=== PATIENT | male | born 1940 | race African-American/Black ===

== ENCOUNTER 2016-10-26 15:33 | Inpatient (IN) | payer OTHER, MEDICAID ==
[~2016-10-26] VITALS: Ht 185.4 cm; Wt 67.6 kg
[~2016-10-26 15:33] MED LIST: ASPIR 8181 MG ORAL; ATORVASTATIN CA20 MG ORAL; DONEPEZIL HCL10 M2 ORAL; NAMENDA10 MG ORAL; OXYBUTYNIN CHLOR5 M2 PO; TAMSULOSIN HCL0.4 MG ORAL; TYLENOL325 MG ORAL
[2016-10-26 15:59] LABS: BASOPHILS % (AUTO) 1.7 % (0.0-2.0); EOSINOPHILS % (AUTO) 2.1 % (0.0-3.0); LYMPHOCYTES % (AUTO) 21.7 % (20.0-45.0); MEAN CORPUSCULAR VOLUME 91 FL (80-99); MEAN PLATELET VOLUME 6.4 FL (6.5-10.1); MONOCYTES % (AUTO) 10.1 % (1.0-10.0); NEUTROPHILS % (AUTO) 64.4 % (45.0-75.0); PLATELET COUNT 171 K/UL (150-450); RED BLOOD COUNT 4.61 M/UL (4.70-6.10); RED CELL DISTRIBUTION WIDTH 13.6 % (11.6-14.8)
[2016-10-26 16:03] LABS: APPEARANCE,URINE CLEAR; KETONES,URINE 1+ (NEGATIVE); LEUKOCYTE ESTERASE ,URINE 1+ (NEGATIVE); NITRITE,URINE NEGATIVE (NEGATIVE); PH,URINE 6.5 (4.5-8.0); PROTEIN,URINE 2+ (NEGATIVE); UROBILINOGEN,URINE 1 MG/DL (0.0-1.0)
[2016-10-26 16:11] VITALS: BP 110/74
[2016-10-26 16:15] LABS: ALANINE AMINOTRANSFERASE 25 U/L (3-41); ALBUMIN/GLOBULIN RATIO 1.3 (1.0-2.7); ANION GAP 15 (5-15); ASPARTATE AMINO TRANSFERASE 23 U/L (5-40); CALCIUM 9.6 mg/dL (8.6-10.2); CARBON DIOXIDE 27 mEQ/L (20-30); CHLORIDE 99 mEQ/L (98-107); CREATININE 0.9 mg/dL (0.7-1.2); HEMOLYSIS 3; POTASSIUM 4.9 mEQ/L (3.4-4.9); SODIUM 141 mEQ/L (135-145); TOTAL PROTEIN 7.2 g/dL (6.6-8.7); TROPONIN I < 0.30 ng/mL (<=0.30)
[2016-10-26 16:18] LABS: AMORPHOUS SEDIMENT,UR FEW /LPF; BACTERIA,URINE MODERATE /HPF; YEAST,URINE FEW /HPF
[2016-10-26 16:20] LABS: REFLEX LACTIC ACID YES OR NO YES
[2016-10-26 16:26] LABS: CKMB < 1.5 ng/mL (< 6.7)
[2016-10-26] MEDS ORDERED: cefTRIAXone 1 GM in NS 55 ML IVPB ONE (17:00)
[2016-10-26] MEDS ORDERED: NS 1000ml 2,200 ML IVLG ONE (17:00)
[2016-10-26 17:15] VITALS: BP 119/78
[2016-10-26] MEDS ORDERED: Miralax 17gm pkt ORAL PRN (17:45)
[2016-10-26] MEDS ORDERED: Nitroglycerin Subl 0.4mg tab (Bottle Of 25) SL PRN (17:45)
[2016-10-26] MEDS ORDERED: Morphine Sulfate 2mg/ml Inj IVP PRN (17:45)
[2016-10-26] MEDS ORDERED: DuoNeb 0.5-3(2.5)mg/3ml neb HHN PRN (17:45)
[2016-10-26 18:07] VITALS: BP 118/86
[2016-10-26 19:00] VITALS: BP 138/75
--- NOTE | 2016-10-26 19:09 | Emergency Room Report ---
History of Present Illness General Chief Complaint: Generalized Weakness Source: EMS Present Illness HPI 76-year-old male presents to ED for evaluation. Son at bedside states that patient has been more altered in usual x1 day. Diaphoretic and tremulous. Patient has history of dementia. Denies fevers or chills. Denies chest pain or shortness of breath. Denies nausea or vomiting. No other aggravating or leading factors. Denies any other associated symptoms Allergies: Coded Allergies: No Known Allergies (Unverified , 08/11/15) Patient History Past Medical History: dementia Pertinent Family History: none Social History: Denies: alcohol use, drug use, smoking Immunizations: UTD Reviewed Nursing Documentation: PMH: Agreed, PSxH: Agreed Nursing Documentation-PMH Past Medical History: No History, Except For Hx Asthma: No - BPH Hx Cancer: Yes - Prostate History Of Psychiatric Problem: Yes - DEMENTIA Hx Alzheimer's Disease: Yes Review of Systems All Other Systems: negative except mentioned in HPI Physical Exam Vital Signs Date Time Temp Pulse Resp B/P Pulse Ox O2 Delivery O2 Flow Rate FiO2 10/26/16 15:21 65 16 103/66 99 Room Air 10/26/16 16:11 98.5 Sp02 EP Interpretation: reviewed, normal General Appearance: no apparent distress, alert, GCS 15, non-toxic, thin Head: normocephalic Eyes: bilateral eye PERRL, bilateral eye normal inspection ENT: normal ENT inspection Neck: normal inspection Respiratory: chest non-tender, lungs clear, normal breath sounds, speaking full sentences Cardiovascular #1: regular rate, rhythm, no edema Gastrointestinal: normal bowel sounds, non tender, soft, non-distended, no guarding, no rebound Rectal: deferred Genitourinary: no CVA tenderness Musculoskeletal: normal inspection Neurologic: other - dementia Psychiatric: other - dementia Skin: normal inspection Lymphatic: normal inspection Medical Decision Making Diagnostic Impression: Primary Impression: Episode of generalized weakness Additional Impressions: Dementia Qualified Codes: F03.90 - Unspecified dementia without behavioral disturbance Sepsis Qualified Codes: A41.9 - Sepsis, unspecified organism UTI (urinary tract infection) Qualified Codes: N39.0 - Urinary tract infection, site not specified ER Course Hospital Course 76-year-old male presenting to ED with generalized weakness, worsening of mental status. h/o dementia Differential diagnoses include: Pneumonia, UTI, sepsis, dehydration, PA/ unstable angina Clinical course Patient placed on stretcher. On program clinician with stable vitals are ED course. After initial history and physical, I ordered labs, IV fluids, EKG, chest x-ray, blood cultures, UA. Labs - electrolytes ok, no leukocytosis, troponins negative, lactate > 2, UA grossly positive for UTI EKG - NSR, no acute changes CXR - no acute process Abx given. given 30cc/kg fluid bolus. Case discussed with Dr Lowe and they agreed to admit patient to their service for further care and support I feel this is a highly complex case requiring extensive working including EKG/ Rhythm strip, Xray/CT/US, Blood/urine lab work, repeat exams while in ED, and administration of strong opiates/narcotics for pain control, admission to hospital or close patient follow up. Diagnosis - UTI, generalized weakness, sepsis, dementia Patient admitted to floor in serious condition Labs Test 10/26/16 15:25 10/26/16 15:50 10/26/16 16:45 White Blood Count 10.0 K/UL (4.8-10.8) Red Blood Count 4.61 M/UL (4.70-6.10) Hemoglobin 14.3 G/DL (14.2-18.0) Hematocrit 42.0 % (42.0-52.0) Mean Corpuscular Volume 91 FL (80-99) Mean Corpuscular Hemoglobin 31.0 PG (27.0-31.0) Mean Corpuscular Hemoglobin Concent 34.0 G/DL (32.0-36.0) Red Cell Distribution Width 13.6 % (11.6-14.8) Platelet Count 171 K/UL (150-450) Mean Platelet Volume 6.4 FL (6.5-10.1) Neutrophils (%) (Auto) 64.4 % (45.0-75.0) Lymphocytes (%) (Auto) 21.7 % (20.0-45.0) Monocytes (%) (Auto) 10.1 % (1.0-10.0) Eosinophils (%) (Auto) 2.1 % (0.0-3.0) Basophils (%) (Auto) 1.7 % (0.0-2.0) Sodium Level 141 mEQ/L (135-145) Potassium Level 4.9 mEQ/L (3.4-4.9) Chloride Level 99 mEQ/L (98-107) Carbon Dioxide Level 27 mEQ/L (20-30) Anion Gap 15 (5-15) Blood Urea Nitrogen 17 mg/dL (7-23) Creatinine 0.9 mg/dL (0.7-1.2) Estimat Glomerular Filtration Rate mL/min (>60) Glucose Level 103 mg/dL (74-106) Lactic Acid Level 2.70 mmol/L (0.66-2.22) 1.30 mmol/L (0.66-2.22) Calcium Level 9.6 mg/dL (8.6-10.2) Total Bilirubin 0.3 mg/dL (0.0-1.2) Aspartate Amino Transf (AST/SGOT) 23 U/L (5-40) Alanine Aminotransferase (ALT/SGPT) 25 U/L (3-41) Alkaline Phosphatase 84 U/L (40-129) Total Creatine Kinase 46 U/L (38-174) Creatine Kinase MB < 1.5 ng/mL (< 6.7) Creatine Kinase MB Relative Index Troponin I < 0.30 ng/mL (<=0.30) Total Protein 7.2 g/dL (6.6-8.7) Albumin 4.1 g/dL (3.5-5.2) Globulin 3.1 g/dL Albumin/Globulin Ratio 1.3 (1.0-2.7) Urine Color Yellow Urine Appearance Clear Urine pH 6.5 (4.5-8.0) Urine Specific [place] 1.015 (1.005-1.035) Urine Protein 2+ (NEGATIVE) Urine Glucose (UA) Negative (NEGATIVE) Urine Ketones 1+ (NEGATIVE) Urine Occult Blood 1+ (NEGATIVE) Urine Nitrite Negative (NEGATIVE) Urine Bilirubin Negative (NEGATIVE) Urine Urobilinogen 1 MG/DL (0.0-1.0) Urine Leukocyte Esterase 1+ (NEGATIVE) Urine RBC 2-4 /HPF (0 - 0) Urine WBC 5-10 /HPF (0 - 0) Urine Squamous Epithelial Cells None /LPF (NONE/OCC) Urine Amorphous Sediment Few /LPF (NONE) Urine Bacteria Moderate /HPF (NONE) Urine Yeast Few /HPF (NONE) EKG Diagnostic Results Rate: normal Rhythm: NSR ST Segments: no acute changes ASA given to the pt in ED: No Rhythm Strip Diag. Results EP Interpretation: yes Rhythm: NSR, no PVC's, no ectopy Chest X-Ray Diagnostic Results EP Interpretation: No Findings: no consolidation, no effusion, no pneumothorax, no acute cardiopulmonary disease Number of Views: 1 Last Vital Signs Date Time Temp Pulse Resp B/P Pulse Ox O2 Delivery O2 Flow Rate FiO2 10/26/16 18:20 98.3 70 15 118/86 100 Room Air Status: improved Disposition: ADMITTED INPATIENT Condition: Serious Referrals: NON PHYSICIAN (PCP) MIGUEL SAMSON M.D. Oct 26, 2016 19:09
[2016-10-26] MEDS ORDERED: Vancomycin 1.5 GM in D5W 325 ML IVPB ONE (20:00)
[2016-10-26] MEDS: Atorvastatin 20mg tab ORAL SCH (20:15)
[2016-10-26] MEDS: Heparin 5000 units/ml inj SUBQ SCH (20:15)
[2016-10-26] MEDS: Tamsulosin 0.4mg cap ORAL SCH (20:15)
[2016-10-26] MEDS ORDERED: Cefepime HCl 2 GM in D5W 110 ML IV SCH (21:30)
[2016-10-26] MEDS: Cefepime HCl 2 GM in NS 110 ML IV SCH (22:24)
--- NOTE | 2016-10-26 23:27 | Consultation ---
History of Present Illness General Chief Complaint: Generalized Weakness Present Illness Allergies: Coded Allergies: No Known Allergies (Unverified , 08/11/15) Medication History Scheduled Aspirin* (Aspir 81*), 81 MG ORAL DAILY, (Reported) Atorvastatin Calcium* (Atorvastatin Calcium*), 20 MG ORAL BEDTIME, (Reported) Donepezil Hcl* (Donepezil Hcl*), 10 MG ORAL DAILY, (Reported) Memantine Hcl* (Namenda*), 10 MG ORAL DAILY, (Reported) Scheduled PRN Acetaminophen (Tylenol), 650 MG ORAL Q6H PRN for For Pain Discontinued Medications Oxybutynin Chloride (Oxybutynin Chloride Er), 5 MG PO, (Reported) Discontinued Reason: Pt stopped taking med Tamsulosin Hcl (Tamsulosin Hcl*), 0.4 MG ORAL BEDTIME, (Reported) Discontinued Reason: Pt stopped taking med Patient History Healthcare decision maker Resuscitation status Full Code Advanced Directive on File Physical Exam Last 24 Hour Vital Signs Date Time Temp Pulse Resp B/P Pulse Ox O2 Delivery O2 Flow Rate FiO2 10/26/16 19:00 98.1 82 20 138/75 96 Room Air 10/26/16 18:20 98.3 70 15 118/86 100 Room Air 10/26/16 18:07 98.3 70 15 118/86 100 Room Air 10/26/16 17:15 98.1 62 15 119/78 98 Room Air 10/26/16 16:11 98.5 64 18 110/74 100 Room Air 10/26/16 15:21 65 16 103/66 99 Room Air Laboratory Tests Test 10/26/16 15:25 10/26/16 15:50 10/26/16 16:45 White Blood Count 10.0 K/UL (4.8-10.8) Red Blood Count 4.61 M/UL (4.70-6.10) L Hemoglobin 14.3 G/DL (14.2-18.0) Hematocrit 42.0 % (42.0-52.0) Mean Corpuscular Volume 91 FL (80-99) Mean Corpuscular Hemoglobin 31.0 PG (27.0-31.0) Mean Corpuscular Hemoglobin Concent 34.0 G/DL (32.0-36.0) Red Cell Distribution Width 13.6 % (11.6-14.8) Platelet Count 171 K/UL (150-450) Mean Platelet Volume 6.4 FL (6.5-10.1) L Neutrophils (%) (Auto) 64.4 % (45.0-75.0) Lymphocytes (%) (Auto) 21.7 % (20.0-45.0) Monocytes (%) (Auto) 10.1 % (1.0-10.0) H Eosinophils (%) (Auto) 2.1 % (0.0-3.0) Basophils (%) (Auto) 1.7 % (0.0-2.0) Sodium Level 141 mEQ/L (135-145) Potassium Level 4.9 mEQ/L (3.4-4.9) Chloride Level 99 mEQ/L (98-107) Carbon Dioxide Level 27 mEQ/L (20-30) Anion Gap 15 (5-15) Blood Urea Nitrogen 17 mg/dL (7-23) Creatinine 0.9 mg/dL (0.7-1.2) Estimat Glomerular Filtration Rate mL/min (>60) Glucose Level 103 mg/dL (74-106) Lactic Acid Level 2.70 mmol/L (0.66-2.22) H 1.30 mmol/L (0.66-2.22) Calcium Level 9.6 mg/dL (8.6-10.2) Total Bilirubin 0.3 mg/dL (0.0-1.2) Aspartate Amino Transf (AST/SGOT) 23 U/L (5-40) Alanine Aminotransferase (ALT/SGPT) 25 U/L (3-41) Alkaline Phosphatase 84 U/L (40-129) Total Creatine Kinase 46 U/L (38-174) Creatine Kinase MB < 1.5 ng/mL (< 6.7) Creatine Kinase MB Relative Index Troponin I < 0.30 ng/mL (<=0.30) Total Protein 7.2 g/dL (6.6-8.7) Albumin 4.1 g/dL (3.5-5.2) Globulin 3.1 g/dL Albumin/Globulin Ratio 1.3 (1.0-2.7) Urine Color Yellow Urine Appearance Clear Urine pH 6.5 (4.5-8.0) Urine Specific [place] 1.015 (1.005-1.035) Urine Protein 2+ (NEGATIVE) H Urine Glucose (UA) Negative (NEGATIVE) Urine Ketones 1+ (NEGATIVE) H Urine Occult Blood 1+ (NEGATIVE) H Urine Nitrite Negative (NEGATIVE) Urine Bilirubin Negative (NEGATIVE) Urine Urobilinogen 1 MG/DL (0.0-1.0) H Urine Leukocyte Esterase 1+ (NEGATIVE) H Urine RBC 2-4 /HPF (0 - 0) H Urine WBC 5-10 /HPF (0 - 0) H Urine Squamous Epithelial Cells None /LPF (NONE/OCC) Urine Amorphous Sediment Few /LPF (NONE) H Urine Bacteria Moderate /HPF (NONE) H Urine Yeast Few /HPF (NONE) H Height (Feet): 6 Height (Inches): 1.00 Weight (Pounds): 149 Medications Current Medications Medications (Trade) Dose Ordered Sig/Hao Route PRN Reason Start Time Stop Time Status Last Admin Dose Admin Acetaminophen (Tylenol) 650 mg Q4H PRN ORAL fever 10/26/16 17:45 11/25/16 17:44 Albuterol/ Ipratropium (DuoNeb 0.5-3(2.5)mg/3ml) 3 ml Q4H PRN HHN Shortness of Breath 10/26/16 17:45 10/31/16 17:44 Atorvastatin Calcium (Lipitor) 20 mg BEDTIME ORAL 10/26/16 21:00 11/25/16 20:59 10/26/16 20:15 Cefepime HCl/ Sodium Chloride (Maxipime/Sodium Chloride) 110 ml @ 220 mls/hr EVERY 12 HOURS IV 10/26/16 21:30 11/02/16 21:29 10/26/16 22:24 Donepezil HCl (Aricept) 10 mg DAILY ORAL 10/27/16 09:00 11/26/16 08:59 Heparin Sodium (Porcine) (Heparin 5000 units/ml) 5,000 units EVERY 12 HOURS SUBQ 10/26/16 21:00 11/25/16 20:59 10/26/16 20:15 Morphine Sulfate (Morphine Sulfate) 2 mg Q4H PRN IVP Moderate Pain (Pain Scale 4-6) 10/26/16 17:45 11/02/16 17:44 Nitroglycerin (Ntg) 0.4 mg Q5M PRN SL Prn Chest Pain 10/26/16 17:45 11/25/16 17:44 Ondansetron HCl (Zofran) 4 mg Q6H PRN IVP Nausea & Vomiting 10/26/16 17:45 11/25/16 17:44 Polyethylene Glycol (Miralax) 17 gm DAILYPRN PRN ORAL Constipation 10/26/16 17:45 11/25/16 17:44 Tamsulosin HCl (Flomax) 0.4 mg BEDTIME ORAL 10/26/16 21:00 11/25/16 20:59 10/26/16 20:15 Temazepam (Restoril) 15 mg HSPRN PRN ORAL Insomnia 10/26/16 17:45 11/02/16 17:44 Vancomycin HCl 1.25 gm/Dextrose 275 ml @ 183.333 mls/hr Q24H IVPB 10/27/16 19:00 11/01/16 18:59 Vancomycin HCl 1 ea 1 ea DAILY PRN MISC . 10/26/16 18:45 11/25/16 18:44 AYSHA ROSENBERG Oct 26, 2016 23:27
[2016-10-27] VITALS: BP 142/87
[2016-10-27] MEDS ORDERED: Vancomycin 1 GM in D5W 275 ML IV SCH (00:30)
[2016-10-27 04:00] VITALS: BP 131/75
[2016-10-27 07:30] LABS: BASOPHILS % (AUTO) 1.3 % (0.0-2.0); EOSINOPHILS % (AUTO) 2.2 % (0.0-3.0); LYMPHOCYTES % (AUTO) 17.6 % (20.0-45.0); MEAN CORPUSCULAR HEMOGLOBIN 29.2 PG (27.0-31.0); MEAN CORPUSCULAR HGB CONC 32.2 G/DL (32.0-36.0); MEAN CORPUSCULAR VOLUME 91 FL (80-99); MEAN PLATELET VOLUME 6.6 FL (6.5-10.1); MONOCYTES % (AUTO) 8.8 % (1.0-10.0); NEUTROPHILS % (AUTO) 70.1 % (45.0-75.0); PLATELET COUNT 177 K/UL (150-450); RED CELL DISTRIBUTION WIDTH 13.3 % (11.6-14.8); WHITE BLOOD COUNT 9.4 K/UL (4.8-10.8)
[2016-10-27 07:44] LABS: ALANINE AMINOTRANSFERASE 20 U/L (3-41); ALBUMIN/GLOBULIN RATIO 1.2 (1.0-2.7); ANION GAP 17 (5-15); ASPARTATE AMINO TRANSFERASE 20 U/L (5-40); CALCIUM 8.8 mg/dL (8.6-10.2); CARBON DIOXIDE 22 mEQ/L (20-30); CHLORIDE 103 mEQ/L (98-107); CREATININE 0.7 mg/dL (0.7-1.2); HEMOLYSIS 3; POTASSIUM 3.6 mEQ/L (3.4-4.9); SODIUM 142 mEQ/L (135-145); TOTAL PROTEIN 6.4 g/dL (6.6-8.7)
[2016-10-27] MEDS: Cefepime HCl 2 GM in NS 110 ML IV SCH ×2 (08:09→22:33)
[2016-10-27] MEDS: Donepezil 10mg tab ORAL SCH (08:09)
[2016-10-27] MEDS: Heparin 5000 units/ml inj SUBQ SCH ×2 (08:10→20:44)
--- NOTE | 2016-10-27 08:15 | Diagnostic Imaging Report ---
Indication: Chest pain Technique: One view of the chest Comparison: 01/09/2016 Findings: Lungs and pleural spaces are clear. Heart size is normal. Aorta is tortuous and calcified. No significant change Impression: No acute process
[2016-10-27 08:49] VITALS: BP 155/114
[2016-10-27 11:56] VITALS: BP 121/68
[2016-10-27 16:00] VITALS: BP 156/75
--- NOTE | 2016-10-27 16:20 | History & Physical ---
History and Physical History & Physicial Addy Lowe MD Oct 27, 2016 16:20
[2016-10-27] MEDS ORDERED: D5 1/2NS w/KCl 20mEq 1,000 ML IV SCH (16:30)
[2016-10-27] MEDS ORDERED: D5 IV ONE (18:00)
[2016-10-27] MEDS ORDERED: POTASSIUM CHLORIDE IV ONE (18:00)
[2016-10-27] MEDS ORDERED: [UNRECOGNIZED DRUG - OTHER] IV ONE (18:00)
[2016-10-27 19:00] VITALS: BP 158/80
[2016-10-27] MEDS ORDERED: Vancomycin 1250mg/D5W 275ml IVPB SCH ×2 (19:00)
--- NOTE | 2016-10-27 20:35 | Pulmonology Progress Note ---
Subjective Allergies: Coded Allergies: No Known Allergies (Unverified , 08/11/15) Objective Last 24 Hour Vital Signs Date Time Temp Pulse Resp B/P Pulse Ox O2 Delivery O2 Flow Rate FiO2 10/27/16 16:00 96.8 98 18 156/75 94 Room Air 10/27/16 11:56 98.1 100 22 121/68 97 Room Air 10/27/16 08:49 98.1 104 22 155/114 99 Room Air 10/27/16 04:00 97.7 77 20 131/75 97 Room Air 10/27/16 00:00 97.9 73 20 142/87 94 Room Air Intake and Output 10/26/16 10/27/16 19:00 07:00 Intake Total 3255 ml 240 ml Output Total 500 ml Balance 2755 ml 240 ml Intake Oral 240 ml IV Total 1055 ml Other 2200 ml Output Urine Total 500 ml # Voids 6 # Bowel Movements 1 1 Microbiology Date/Time Source Procedure Growth Status 10/26/16 15:50 Urine,Clean Catch Urine Culture - Preliminary NO GROWTH Resulted Laboratory Tests 10/27/16 06:55: White Blood Count 9.4, Red Blood Count 4.30L, Hemoglobin 12.6L, Hematocrit 39.1L , Mean Corpuscular Volume 91, Mean Corpuscular Hemoglobin 29.2, Mean Corpuscular Hemoglobin Concent 32.2, Red Cell Distribution Width 13.3, Platelet Count 177, Mean Platelet Volume 6.6, Neutrophils (%) (Auto) 70.1, Lymphocytes (% ) (Auto) 17.6L, Monocytes (%) (Auto) 8.8, Eosinophils (%) (Auto) 2.2, Basophils (%) (Auto) 1.3, Sodium Level 142, Potassium Level 3.6, Chloride Level 103, Carbon Dioxide Level 22, Anion Gap 17H, Blood Urea Nitrogen 10, Creatinine 0.7, Estimat Glomerular Filtration Rate , Glucose Level 96, Calcium Level 8.8, Total Bilirubin 0.4, Aspartate Amino Transf (AST/SGOT) 20, Alanine Aminotransferase ( ALT/SGPT) 20, Alkaline Phosphatase 77, Total Protein 6.4L, Albumin 3.6, Globulin 2.8, Albumin/Globulin Ratio 1.2 Current Medications Medications (Trade) Dose Ordered Sig/Hao Route PRN Reason Start Time Stop Time Status Last Admin Dose Admin Acetaminophen (Tylenol) 650 mg Q4H PRN ORAL fever 10/26/16 17:45 11/25/16 17:44 Albuterol/ Ipratropium (DuoNeb 0.5-3(2.5)mg/3ml) 3 ml Q4H PRN HHN Shortness of Breath 10/26/16 17:45 10/31/16 17:44 Atorvastatin Calcium (Lipitor) 20 mg BEDTIME ORAL 10/26/16 21:00 11/25/16 20:59 10/26/16 20:15 Cefepime HCl 2 gm/ Sodium Chloride 110 ml @ 220 mls/hr EVERY 12 HOURS IV 10/26/16 21:30 11/02/16 21:29 10/27/16 08:09 Donepezil HCl (Aricept) 10 mg DAILY ORAL 10/27/16 09:00 11/26/16 08:59 10/27/16 08:09 Heparin Sodium (Porcine) (Heparin 5000 units/ml) 5,000 units EVERY 12 HOURS SUBQ 10/26/16 21:00 11/25/16 20:59 10/27/16 08:10 Morphine Sulfate (Morphine Sulfate) 2 mg Q4H PRN IVP Moderate Pain (Pain Scale 4-6) 10/26/16 17:45 11/02/16 17:44 Nitroglycerin (Ntg) 0.4 mg Q5M PRN SL Prn Chest Pain 10/26/16 17:45 11/25/16 17:44 Ondansetron HCl (Zofran) 4 mg Q6H PRN IVP Nausea & Vomiting 10/26/16 17:45 11/25/16 17:44 Polyethylene Glycol (Miralax) 17 gm DAILYPRN PRN ORAL Constipation 10/26/16 17:45 11/25/16 17:44 Potassium Chloride/Dextrose/ Sodium Chloride (KCl/D5 0.45% NS) 760 ml @ 75 mls/hr Q10H8M ONCE IV 10/27/16 18:00 10/28/16 04:07 10/27/16 18:09 Tamsulosin HCl (Flomax) 0.4 mg BEDTIME ORAL 10/26/16 21:00 11/25/16 20:59 10/26/16 20:15 Temazepam (Restoril) 15 mg HSPRN PRN ORAL Insomnia 10/26/16 17:45 11/02/16 17:44 Vancomycin HCl 1.25 gm/Dextrose 275 ml @ 183.333 mls/hr Q24H IVPB 10/27/16 19:00 11/01/16 18:59 10/27/16 18:10 Vancomycin HCl 1 ea 1 ea DAILY PRN MISC . 10/26/16 18:45 11/25/16 18:44 AYSHA ROSENBERG Oct 27, 2016 20:35
[2016-10-27] MEDS: Tamsulosin 0.4mg cap ORAL SCH (20:38)
[2016-10-27] MEDS: Atorvastatin 20mg tab ORAL SCH (20:39)
--- NOTE | 2016-10-27 23:18 | History and Physical Report ---
DATE OF ADMISSION: 10/26/2016 CHIEF COMPLAINT: Altered mental status, more than usual. HISTORY OF PRESENT ILLNESS: This is a 76-year-old very delightful demented gentleman with a past medical history significant for severe dementia, who was presented to the hospital accompanied with his son after he was noted to be more altered than usual. The patient usually demented. However, his status became progressively worse in past 24 hours. He has become diaphoretic and he denies any fever or chills. No chest pain or shortness of breath. No nausea or vomiting. Most of the history is taken from the son. Due to the patient's status, the patient answered questions with single words and he only knows his name, Sina. Shortly after initial evaluation in the emergency, the patient was admitted to the hospital with dehydration and sepsis secondary to urinary tract infection. PAST MEDICAL HISTORY AND PAST SURGICAL HISTORY: As above. History of dementia. MEDICATIONS: Medications at home significant for Tylenol, aspirin, atorvastatin, Aricept, and Namenda. ALLERGIES: No known drug allergies. SOCIAL HISTORY: No smoking, alcohol, or drugs at this time. FAMILY HISTORY: Noncontributory. REVIEW OF SYSTEMS: Very limited secondary to the patient's status. No fever or chills. No nausea or vomiting. No chest pain. PHYSICAL EXAMINATION: VITAL SIGNS: On admission, temperature of 98.5, pulse of 65, respirations 16, and blood pressure 103/66. GENERAL: The patient is awake, responsive, not in acute distress. HEAD AND NECK: Pupils are reactive to light and anicteric. NECK: Supple. No JVD. LUNGS: inspiratory effort. HEART: S1 and S2. Distant heart sounds. No murmurs or gallops. ABDOMEN: Soft, nondistended and nontender. Positive bowel sounds. EXTREMITIES: No cyanosis, clubbing, or edema. The patient is moving all extremities spontaneously and is mostly bedbound at this time. NEUROLOGIC: Examination is very limited secondary to the patient's status. Cranial nerves II through XII are grossly intact. The patient is moving his extremities slowly. LABORATORY DATA: On admission from the ER, sodium 141, potassium 4.9, chloride 99, bicarbonate 27, BUN 17, creatinine 0.9, and glucose 103. First lactic acid is 2.70 second one is 1.30. Liver functions essentially unremarkable. First troponin less than 0.30. Total protein 7.2. Urinalysis is +2 protein, +1 ketones, nitrate negative, leukocytes +1, WBC of 5 to 10, few yeast, and moderate bacteria. WBC of 10.0, hemoglobin of 14, hematocrit 42, and platelet 171,000. Chest x-ray is unremarkable. ASSESSMENT: 1. Sepsis secondary urinary tract infection. 2. Dehydration. 3. Dementia. 4. Toxic metabolic encephalopathy most likely secondary to the sepsis. PLAN: Admit the patient to medical/surgical. We will followup laboratories. IV hydration, broad-spectrum antibiotics with vancomycin and cefepime. We will follow up with the culture. DVT prophylaxis. Heparin subcutaneous. Resume home medications. We will monitor laboratory in the morning. CODE STATUS: Full Code at this time. Addy Lowe M.D. DR: CINTHYA JOB#: [id number] CC:
[2016-10-28] VITALS (7 sets, daily range): BP systolic 108–160; BP diastolic 59–97
[2016-10-28 07:38] LABS: MEAN CORPUSCULAR HEMOGLOBIN 28.7 PG (27.0-31.0); MEAN CORPUSCULAR HGB CONC 31.4 G/DL (32.0-36.0); MEAN CORPUSCULAR VOLUME 91 FL (80-99); PLATELET COUNT 189 K/UL (150-450); RED BLOOD COUNT 4.55 M/UL (4.70-6.10); RED CELL DISTRIBUTION WIDTH 13.3 % (11.6-14.8); WHITE BLOOD COUNT 8.9 K/UL (4.8-10.8)
[2016-10-28 08:11] LABS: ANION GAP 16 (5-15); CALCIUM 9.1 mg/dL (8.6-10.2); CARBON DIOXIDE 22 mEQ/L (20-30); CHLORIDE 102 mEQ/L (98-107); CREATININE 0.8 mg/dL (0.7-1.2); HEMOLYSIS 1; MAGNESIUM 2.1 mg/dL (1.7-2.5); PHOSPHORUS 3.3 mg/dL (2.5-4.8); POTASSIUM 3.8 mEQ/L (3.4-4.9); SODIUM 140 mEQ/L (135-145)
[2016-10-28] MEDS: Donepezil 10mg tab ORAL SCH (08:55)
[2016-10-28] MEDS: Cefepime HCl 2 GM in NS 110 ML IV SCH ×2 (08:55→21:14)
[2016-10-28] MEDS: Heparin 5000 units/ml inj SUBQ SCH ×2 (08:58→21:36)
[2016-10-28 09:38] LABS: BAND NEUTROPHILS % (MANUAL) 0 % (0-8); BASOPHILS % (MANUAL) 0 % (0-2); EOSINOPHILS % (MANUAL) 1 % (0-3); HYPOCHROMASIA 1+; LYMPHOCYTES % (MANUAL) 27 % (20-45); NEUTROPHILS % (MANUAL) 65 % (45-75); PLATELET ESTIMATE ADEQUATE; PLATELET MORPHOLOGY NORMAL; TOTAL CELLS COUNTED 100
--- NOTE | 2016-10-28 10:47 | Consultation ---
Consult Note Consult Note ID Dic # [id number] CAMILO POND M.D. Oct 28, 2016 10:47
--- NOTE | 2016-10-28 17:28 | Consultation ---
DATE OF CONSULTATION: INFECTIOUS DISEASE CONSULT CONSULTING PHYSICIAN: Colby Richardson M.D. REQUESTING PHYSICIAN: Josias Godinez M.D. REASON FOR CONSULTATION: Evaluation of the patient for sepsis, antibiotic management, and urinary tract infection. HISTORY OF PRESENT ILLNESS: The patient is a 76-year-old male with multiple medical problems, who was admitted to this medical center from home due to worsening of mental status. The patient has history of dementia and asthma. The patient was admitted with the impression of urinary tract infection. The patient has been started on IV antibiotics. An Infectious Diseases consultation has been requested for further evaluation of the patient and antibiotic management. PAST MEDICAL HISTORY: As mentioned above. MEDICATION: Cefepime and vancomycin. ALLERGIES: No known drug allergies. SOCIAL HISTORY: Negative for alcohol or drug abuse. REVIEW OF SYSTEMS: Unobtainable. PHYSICAL EXAMINATION: VITAL SIGNS: Temperature 98 degrees, pulse 86, respiratory rate 18, and blood pressure 115/70. HEENT: Mild pale conjunctivae. No icterus. CHEST: Coarse breathing sounds. HEART: S1 and S2. ABDOMEN: Soft and nontender. EXTREMITIES: No cyanosis. NEUROLOGIC: Confused. LABORATORY AND DIAGNOSTIC DATA: White blood cells 8.8, hemoglobin 13, and platelet 189,000. UA, 5 to 10 red blood cells and 2 to 4 red blood cells. BUN 9 and creatinine 0.8. ALT, AST, and alkaline phosphatase are unremarkable. Chest x-ray, no acute process. ASSESSMENT: The patient is a 76-year-old male with multiple medical problems, who has been admitted to this medical center for worsening mental status, possible urinary tract infection, rule out bacteremia. Based on exam and work up so far, he has no possible source of infection. If the patient's culture stays stable and afebrile, we may stop antibiotics soon. PLAN: 1. We will continue the patient on cefepime, discontinue vancomycin. 2. Monitor CBC. 3. Monitor BMP. 4. Monitor cultures (blood and urine). 5. Monitor clinical picture. 6. Monitor chest x-ray. 7. Based on the patient's clinical course and labs, we will do further recommendation. Thank you, Dr. Godinez, for allowing me to participate in the care of this patient. I will follow the patient with you during this hospitalization. Thank you that year and it. Colby Richardson M.D. DR: COLIN JOB#: [id number] CC:
--- NOTE | 2016-10-28 17:32 | Pulmonology Progress Note ---
Assessment/Plan Assessment/Plan ASSESSMENT: 1. Sepsis secondary urinary tract infection. 2. Dehydration. 3. Dementia. 4. Toxic metabolic encephalopathy most likely secondary to the sepsis. PLAN: IV hydration, broad-spectrum antibiotics with vancomycin and cefepime. DVT prophylaxis. Heparin subcutaneous. Resume home medications. I will monitor laboratory in the morning. Subjective Interval Events: [facility]; pt states he is better Constitutional: Reports: no symptoms HEENT: Repors: no symptoms Respiratory: Reports: no symptoms Cardiovascular: Reports: no symptoms Gastrointestinal/Abdominal: Reports: no symptoms Genitourinary: Reports: no symptoms Allergies: Coded Allergies: No Known Allergies (Unverified , 08/11/15) Objective Last 24 Hour Vital Signs Date Time Temp Pulse Resp B/P Pulse Ox O2 Delivery O2 Flow Rate FiO2 10/28/16 16:03 97.5 72 16 139/91 99 Room Air 10/28/16 12:03 98.6 71 20 108/59 100 Room Air 10/28/16 08:01 98.7 85 20 115/70 97 Room Air 10/28/16 04:00 98.1 84 20 155/97 96 Room Air 10/28/16 00:00 98.8 94 20 160/81 96 10/27/16 19:00 98.0 68 18 158/80 97 Room Air Intake and Output 10/27/16 10/28/16 19:00 07:00 Intake Total 830 ml 745.000 ml Balance 830 ml 745.000 ml Intake Oral 720 ml 360 ml IV Total 110 ml 385.000 ml # Voids 1 5 # Bowel Movements 1 General Appearance: no acute distress HEENT: normocephalic Respiratory/Chest: chest wall non-tender, lungs clear Cardiovascular: normal peripheral pulses, normal rate Abdomen: soft, non tender Microbiology Date/Time Source Procedure Growth Status 10/26/16 15:30 Blood Blood Culture - Preliminary NO GROWTH AFTER 24 HOURS Resulted 10/26/16 15:25 Blood Blood Culture - Preliminary NO GROWTH AFTER 24 HOURS Resulted 10/26/16 15:50 Urine,Clean Catch Urine Culture - Final NO GROWTH AFTER 48 HOURS Complete Laboratory Tests 10/28/16 05:10: White Blood Count 8.9, Red Blood Count 4.55L, Hemoglobin 13.1L, Hematocrit 41.6L , Mean Corpuscular Volume 91, Mean Corpuscular Hemoglobin 28.7, Mean Corpuscular Hemoglobin Concent 31.4L, Red Cell Distribution Width 13.3, Platelet Count 189, Mean Platelet Volume 6.0L, Neutrophils (%) (Auto) , Lymphocytes (%) (Auto) , Monocytes (%) (Auto) , Eosinophils (%) (Auto) , Basophils (%) (Auto) , Differential Total Cells Counted 100, Neutrophils % ( Manual) 65, Lymphocytes % (Manual) 27, Monocytes % (Manual) 7, Eosinophils % ( Manual) 1, Basophils % (Manual) 0, Band Neutrophils 0, Platelet Estimate Adequate, Platelet Morphology Normal, Hypochromasia 1+, Sodium Level 140, Potassium Level 3.8, Chloride Level 102, Carbon Dioxide Level 22, Anion Gap 16H , Blood Urea Nitrogen 9, Creatinine 0.8, Estimat Glomerular Filtration Rate , Glucose Level 114H, Calcium Level 9.1, Phosphorus Level 3.3, Magnesium Level 2.1 Current Medications Medications (Trade) Dose Ordered Sig/Hao Route PRN Reason Start Time Stop Time Status Last Admin Dose Admin Acetaminophen (Tylenol) 650 mg Q4H PRN ORAL fever 10/26/16 17:45 11/25/16 17:44 Albuterol/ Ipratropium (DuoNeb 0.5-3(2.5)mg/3ml) 3 ml Q4H PRN HHN Shortness of Breath 10/26/16 17:45 10/31/16 17:44 Atorvastatin Calcium (Lipitor) 20 mg BEDTIME ORAL 10/26/16 21:00 11/25/16 20:59 10/27/16 20:39 Cefepime HCl/ Sodium Chloride (Maxipime/Sodium Chloride) 110 ml @ 220 mls/hr EVERY 12 HOURS IV 10/26/16 21:30 11/02/16 21:29 10/28/16 08:55 Donepezil HCl (Aricept) 10 mg DAILY ORAL 10/27/16 09:00 11/26/16 08:59 10/28/16 08:55 Heparin Sodium (Porcine) (Heparin 5000 units/ml) 5,000 units EVERY 12 HOURS SUBQ 10/26/16 21:00 11/25/16 20:59 10/28/16 08:58 Morphine Sulfate (Morphine Sulfate) 2 mg Q4H PRN IVP Moderate Pain (Pain Scale 4-6) 4/6/17 17:45 11/02/16 17:44 Nitroglycerin 0.4 mg 0.4 mg Q5M PRN SL Prn Chest Pain 10/26/16 17:45 11/25/16 17:44 Ondansetron HCl (Zofran) 4 mg Q6H PRN IVP Nausea & Vomiting 10/26/16 17:45 11/25/16 17:44 Polyethylene Glycol (Miralax) 17 gm DAILYPRN PRN ORAL Constipation 10/26/16 17:45 11/25/16 17:44 Tamsulosin HCl (Flomax) 0.4 mg BEDTIME ORAL 10/26/16 21:00 11/25/16 20:59 10/27/16 20:38 Temazepam (Restoril) 15 mg HSPRN PRN ORAL Insomnia 10/26/16 17:45 11/02/16 17:44 Nick Sanders MD Oct 28, 2016 17:32
[2016-10-28] MEDS: Atorvastatin 20mg tab ORAL SCH (21:15)
[2016-10-28] MEDS: Tamsulosin 0.4mg cap ORAL SCH (21:15)
[2016-10-29 03:38] VITALS: BP_SYST 147
[2016-10-29 07:39] LABS: ANION GAP 15 (5-15); CALCIUM 9.2 mg/dL (8.6-10.2); CARBON DIOXIDE 24 mEQ/L (20-30); CHLORIDE 102 mEQ/L (98-107); CREATININE 0.7 mg/dL (0.7-1.2); HEMOLYSIS 0; POTASSIUM 3.6 mEQ/L (3.4-4.9); SODIUM 141 mEQ/L (135-145)
[2016-10-29 07:40] LABS: EOSINOPHILS % (AUTO) 3.1 % (0.0-3.0); LYMPHOCYTES % (AUTO) 26.2 % (20.0-45.0); MEAN CORPUSCULAR HEMOGLOBIN 29.8 PG (27.0-31.0); MEAN CORPUSCULAR HGB CONC 32.5 G/DL (32.0-36.0); MEAN CORPUSCULAR VOLUME 92 FL (80-99); MEAN PLATELET VOLUME 6.8 FL (6.5-10.1); MONOCYTES % (AUTO) 10.2 % (1.0-10.0); NEUTROPHILS % (AUTO) 59.5 % (45.0-75.0); PLATELET COUNT 195 K/UL (150-450); RED BLOOD COUNT 4.38 M/UL (4.70-6.10); RED CELL DISTRIBUTION WIDTH 13.4 % (11.6-14.8); WHITE BLOOD COUNT 9.4 K/UL (4.8-10.8)
[2016-10-29 08:00] VITALS: BP 163/90
[2016-10-29] MEDS ORDERED: Tubing IV Secondary IV ONE (08:40)
[2016-10-29] MEDS: Heparin 5000 units/ml inj SUBQ SCH (09:40)
[2016-10-29] MEDS: Donepezil 10mg tab ORAL SCH (09:40)
[2016-10-29] MEDS: Cefepime HCl 2 GM in NS 110 ML IV SCH (09:40)
[2016-10-29] MEDS ORDERED: LEVAQUIN500 MG ORAL (09:53)
--- NOTE | 2016-10-29 09:57 | Infectious Diseases Prog Note ---
Assessment/Plan Assessment/Plan A; Sepsis was ruled out AMS Dementia P: discontinue Cefepime Agree with discharge case was D/W PMD Subjective ROS Limited/Unobtainable: Yes Constitutional: Reports: no symptoms Respiratory: Reports: no symptoms Allergies: Coded Allergies: No Known Allergies (Unverified , 08/11/15) Objective Vital Signs Last 24 Hour Vital Signs Date Time Temp Pulse Resp B/P Pulse Ox O2 Delivery O2 Flow Rate FiO2 10/29/16 08:00 97.3 20 163/90 96 Room Air 10/29/16 03:38 98.1 79 18 147/ 100 Room Air 10/28/16 23:11 97.9 95 16 150/80 100 Room Air 10/28/16 19:37 97.7 74 19 143/78 100 Room Air 10/28/16 16:03 97.5 72 16 139/91 99 Room Air 10/28/16 12:03 98.6 71 20 108/59 100 Room Air Height (Feet): 6 Height (Inches): 1.00 Weight (Pounds): 149 General Appearance: no acute distress HEENT: mucous membranes moist Respiratory/Chest: lungs clear Cardiovascular: normal rate Abdomen: soft, non tender Extremities: no edema Neurologic/Psychiatric: alert, responsive Microbiology Date/Time Source Procedure Growth Status 10/26/16 15:30 Blood Blood Culture - Preliminary NO GROWTH AFTER 48 HOURS Resulted 10/26/16 15:25 Blood Blood Culture - Preliminary NO GROWTH AFTER 48 HOURS Resulted 10/26/16 15:50 Urine,Clean Catch Urine Culture - Final NO GROWTH AFTER 48 HOURS Complete Laboratory Tests Test 10/29/16 04:50 White Blood Count 9.4 K/UL (4.8-10.8) Red Blood Count 4.38 M/UL (4.70-6.10) L Hemoglobin 13.1 G/DL (14.2-18.0) L Hematocrit 40.2 % (42.0-52.0) L Mean Corpuscular Volume 92 FL (80-99) Mean Corpuscular Hemoglobin 29.8 PG (27.0-31.0) Mean Corpuscular Hemoglobin Concent 32.5 G/DL (32.0-36.0) Red Cell Distribution Width 13.4 % (11.6-14.8) Platelet Count 195 K/UL (150-450) Mean Platelet Volume 6.8 FL (6.5-10.1) Neutrophils (%) (Auto) 59.5 % (45.0-75.0) Lymphocytes (%) (Auto) 26.2 % (20.0-45.0) Monocytes (%) (Auto) 10.2 % (1.0-10.0) H Eosinophils (%) (Auto) 3.1 % (0.0-3.0) H Basophils (%) (Auto) 1.0 % (0.0-2.0) Sodium Level 141 mEQ/L (135-145) Potassium Level 3.6 mEQ/L (3.4-4.9) Chloride Level 102 mEQ/L (98-107) Carbon Dioxide Level 24 mEQ/L (20-30) Anion Gap 15 (5-15) Blood Urea Nitrogen 9 mg/dL (7-23) Creatinine 0.7 mg/dL (0.7-1.2) Estimat Glomerular Filtration Rate mL/min (>60) Glucose Level 89 mg/dL (74-106) Calcium Level 9.2 mg/dL (8.6-10.2) Current Medications Medications (Trade) Dose Ordered Sig/Hao Route PRN Reason Start Time Stop Time Status Last Admin Dose Admin Acetaminophen (Tylenol) 650 mg Q4H PRN ORAL fever 10/26/16 17:45 11/25/16 17:44 Albuterol/ Ipratropium (DuoNeb 0.5-3(2.5)mg/3ml) 3 ml Q4H PRN HHN Shortness of Breath 10/26/16 17:45 10/31/16 17:44 Atorvastatin Calcium (Lipitor) 20 mg BEDTIME ORAL 10/26/16 21:00 11/25/16 20:59 10/28/16 21:15 Cefepime HCl/ Sodium Chloride (Maxipime/Sodium Chloride) 110 ml @ 220 mls/hr EVERY 12 HOURS IV 10/26/16 21:30 11/02/16 21:29 10/29/16 09:40 Donepezil HCl (Aricept) 10 mg DAILY ORAL 10/27/16 09:00 11/26/16 08:59 10/29/16 09:40 Heparin Sodium (Porcine) (Heparin 5000 units/ml) 5,000 units EVERY 12 HOURS SUBQ 10/26/16 21:00 11/25/16 20:59 10/29/16 09:40 Morphine Sulfate (Morphine Sulfate) 2 mg Q4H PRN IVP Moderate Pain (Pain Scale 4-6) 10/26/16 17:45 11/02/16 17:44 Nitroglycerin 0.4 mg 0.4 mg Q5M PRN SL Prn Chest Pain 10/26/16 17:45 11/25/16 17:44 Ondansetron HCl (Zofran) 4 mg Q6H PRN IVP Nausea & Vomiting 10/26/16 17:45 11/25/16 17:44 Polyethylene Glycol (Miralax) 17 gm DAILYPRN PRN ORAL Constipation 10/26/16 17:45 11/25/16 17:44 Tamsulosin HCl (Flomax) 0.4 mg BEDTIME ORAL 10/26/16 21:00 11/25/16 20:59 10/28/16 21:15 Temazepam (Restoril) 15 mg HSPRN PRN ORAL Insomnia 10/26/16 17:45 11/02/16 17:44 10/28/16 21:15 SHUBHAM CROWELL Oct 29, 2016 09:57
--- NOTE | 2016-10-29 09:57 | Pulmonology Progress Note ---
Assessment/Plan Assessment/Plan ASSESSMENT: 1. Sepsis resolved. 2. Dehydration. Resolved 3. Dementia. Baseline 4. All cultures negative PLAN: DC home PO Levaquin Discussed with ID FAmily notified Subjective Interval Events: no fever; discused with family and ID Constitutional: Reports: no symptoms HEENT: Repors: no symptoms Respiratory: Reports: no symptoms Cardiovascular: Reports: no symptoms Allergies: Coded Allergies: No Known Allergies (Unverified , 08/11/15) Objective Last 24 Hour Vital Signs Date Time Temp Pulse Resp B/P Pulse Ox O2 Delivery O2 Flow Rate FiO2 10/29/16 08:00 97.3 20 163/90 96 Room Air 10/29/16 03:38 98.1 79 18 147/ 100 Room Air 10/28/16 23:11 97.9 95 16 150/80 100 Room Air 10/28/16 19:37 97.7 74 19 143/78 100 Room Air 10/28/16 16:03 97.5 72 16 139/91 99 Room Air 10/28/16 12:03 98.6 71 20 108/59 100 Room Air Intake and Output 10/28/16 10/29/16 19:00 07:00 Intake Total 1290 ml Balance 1290 ml Intake Oral 420 ml IV Total 870 ml # Voids 4 General Appearance: no acute distress HEENT: normocephalic Respiratory/Chest: chest wall non-tender, lungs clear Cardiovascular: normal peripheral pulses, normal rate Abdomen: normal bowel sounds, soft, non tender Microbiology Date/Time Source Procedure Growth Status 10/26/16 15:30 Blood Blood Culture - Preliminary NO GROWTH AFTER 48 HOURS Resulted 10/26/16 15:25 Blood Blood Culture - Preliminary NO GROWTH AFTER 48 HOURS Resulted 10/26/16 15:50 Urine,Clean Catch Urine Culture - Final NO GROWTH AFTER 48 HOURS Complete Laboratory Tests 10/29/16 04:50: White Blood Count 9.4, Red Blood Count 4.38L, Hemoglobin 13.1L, Hematocrit 40.2L , Mean Corpuscular Volume 92, Mean Corpuscular Hemoglobin 29.8, Mean Corpuscular Hemoglobin Concent 32.5, Red Cell Distribution Width 13.4, Platelet Count 195, Mean Platelet Volume 6.8, Neutrophils (%) (Auto) 59.5, Lymphocytes (% ) (Auto) 26.2, Monocytes (%) (Auto) 10.2H, Eosinophils (%) (Auto) 3.1H, Basophils (%) (Auto) 1.0, Sodium Level 141, Potassium Level 3.6, Chloride Level 102, Carbon Dioxide Level 24, Anion Gap 15, Blood Urea Nitrogen 9, Creatinine 0.7, Estimat Glomerular Filtration Rate , Glucose Level 89, Calcium Level 9.2 Current Medications Medications (Trade) Dose Ordered Sig/Hao Route PRN Reason Start Time Stop Time Status Last Admin Dose Admin Acetaminophen (Tylenol) 650 mg Q4H PRN ORAL fever 10/26/16 17:45 11/25/16 17:44 Albuterol/ Ipratropium (DuoNeb 0.5-3(2.5)mg/3ml) 3 ml Q4H PRN HHN Shortness of Breath 10/26/16 17:45 10/31/16 17:44 Atorvastatin Calcium (Lipitor) 20 mg BEDTIME ORAL 10/26/16 21:00 11/25/16 20:59 10/28/16 21:15 Cefepime HCl/ Sodium Chloride (Maxipime/Sodium Chloride) 110 ml @ 220 mls/hr EVERY 12 HOURS IV 10/26/16 21:30 11/02/16 21:29 10/29/16 09:40 Donepezil HCl (Aricept) 10 mg DAILY ORAL 10/27/16 09:00 11/26/16 08:59 10/29/16 09:40 Heparin Sodium (Porcine) (Heparin 5000 units/ml) 5,000 units EVERY 12 HOURS SUBQ 10/26/16 21:00 11/25/16 20:59 10/29/16 09:40 Morphine Sulfate (Morphine Sulfate) 2 mg Q4H PRN IVP Moderate Pain (Pain Scale 4-6) 10/26/16 17:45 11/02/16 17:44 Nitroglycerin 0.4 mg 0.4 mg Q5M PRN SL Prn Chest Pain 10/26/16 17:45 11/25/16 17:44 Ondansetron HCl (Zofran) 4 mg Q6H PRN IVP Nausea & Vomiting 10/26/16 17:45 11/25/16 17:44 Polyethylene Glycol (Miralax) 17 gm DAILYPRN PRN ORAL Constipation 10/26/16 17:45 11/25/16 17:44 Tamsulosin HCl (Flomax) 0.4 mg BEDTIME ORAL 10/26/16 21:00 11/25/16 20:59 10/28/16 21:15 Temazepam (Restoril) 15 mg HSPRN PRN ORAL Insomnia 10/26/16 17:45 11/02/16 17:44 10/28/16 21:15 Nick Sanders MD Oct 29, 2016 09:57
[2016-10-29 12:00] VITALS: BP 146/84
--- NOTE | 2016-10-30 10:42 | Discharge Summary ---
Discharge Summary Hospital Course Date of Admission Oct 26, 2016 at 16:12 Date of Discharge Oct 29, 2016 at 14:00 Admitting Diagnosis AMS, weakness HPI Sina Ernandez is a 76 year old male who was admitted on Oct 26, 2016 at 16:12 for Altered Mental Status,Weakness. Son at bedside states that patient has been more altered in usual x1 day. Diaphoretic and tremulous. Patient has history of dementia. Denies fevers or chills. Denies chest pain or shortness of breath. Denies nausea or vomiting. No other aggravating or leading factors. Denies any other associated symptoms Patient History Past Medical History: dementia Pertinent Family History: none Social History: Denies: alcohol use, drug use, smoking Immunizations: UTD Reviewed Nursing Documentation: PMH: Agreed, PSxH: Agreed Nursing Documentation-PMH Past Medical History: No History, Except For Hx Asthma: No - BPH Hx Cancer: Yes - Prostate History Of Psychiatric Problem: Yes - DEMENTIA Hx Alzheimer's Disease: Yes Consultations Infectious Diseases Pulmonary Procedures EKG Diagnostic Results Rate: normal Rhythm: NSR ST Segments: no acute changes ASA given to the pt in ED: No Rhythm Strip Diag. Results EP Interpretation: yes Rhythm: NSR, no PVC's, no ectopy Chest X-Ray Diagnostic Results EP Interpretation: No Findings: no consolidation, no effusion, no pneumothorax, no acute cardiopulmonary disease Number of Views: 1 Hospital Course Medical Decision Making Diagnostic Impression: Primary Impression: Episode of generalized weakness Additional Impressions: Dementia Qualified Codes: F03.90 - Unspecified dementia without behavioral disturbance Sepsis Qualified Codes: A41.9 - Sepsis, unspecified organism UTI (urinary tract infection) Qualified Codes: N39.0 - Urinary tract infection, site not specified ER Course Hospital Course 76-year-old male presenting to ED with generalized weakness, worsening of mental status. h/o dementia Differential diagnoses include: Pneumonia, UTI, sepsis, dehydration, FL/ unstable angina Clinical course Patient placed on stretcher. On threat monitoring analyst with stable vitals are ED course. After initial history and physical, I ordered labs, IV fluids, EKG, chest x-ray, blood cultures, UA. Abx given. given 30cc/kg fluid bolus. Case discussed with Dr Lowe and they agreed to admit patient to their service for further care and support Diagnosis - UTI, generalized weakness, sepsis, dementia Labs Test 10/26/16 15:25 10/26/16 15:50 10/26/16 16:45 White Blood Count 10.0 K/UL (4.8-10.8) Red Blood Count 4.61 M/UL (4.70-6.10) Hemoglobin 14.3 G/DL (14.2-18.0) Hematocrit 42.0 % (42.0-52.0) Mean Corpuscular Volume 91 FL (80-99) Mean Corpuscular Hemoglobin 31.0 PG (27.0-31.0) Mean Corpuscular Hemoglobin Concent 34.0 G/DL (32.0-36.0) Red Cell Distribution Width 13.6 % (11.6-14.8) Platelet Count 171 K/UL (150-450) Mean Platelet Volume 6.4 FL (6.5-10.1) Neutrophils (%) (Auto) 64.4 % (45.0-75.0) Lymphocytes (%) (Auto) 21.7 % (20.0-45.0) Monocytes (%) (Auto) 10.1 % (1.0-10.0) Eosinophils (%) (Auto) 2.1 % (0.0-3.0) Basophils (%) (Auto) 1.7 % (0.0-2.0) Sodium Level 141 mEQ/L (135-145) Potassium Level 4.9 mEQ/L (3.4-4.9) Chloride Level 99 mEQ/L (98-107) Carbon Dioxide Level 27 mEQ/L (20-30) Anion Gap 15 (5-15) Blood Urea Nitrogen 17 mg/dL (7-23) Creatinine 0.9 mg/dL (0.7-1.2) Estimat Glomerular Filtration Rate mL/min (>60) Glucose Level 103 mg/dL (74-106) Lactic Acid Level 2.70 mmol/L (0.66-2.22) 1.30 mmol/L (0.66-2.22) Calcium Level 9.6 mg/dL (8.6-10.2) Total Bilirubin 0.3 mg/dL (0.0-1.2) Aspartate Amino Transf (AST/SGOT) 23 U/L (5-40) Alanine Aminotransferase (ALT/SGPT) 25 U/L (3-41) Alkaline Phosphatase 84 U/L (40-129) Total Creatine Kinase 46 U/L (38-174) Creatine Kinase MB < 1.5 ng/mL (< 6.7) Creatine Kinase MB Relative Index Troponin I < 0.30 ng/mL (<=0.30) Total Protein 7.2 g/dL (6.6-8.7) Albumin 4.1 g/dL (3.5-5.2) Globulin 3.1 g/dL Albumin/Globulin Ratio 1.3 (1.0-2.7) Urine Color Yellow Urine Appearance Clear Urine pH 6.5 (4.5-8.0) Urine Specific [place] 1.015 (1.005-1.035) Urine Protein 2+ (NEGATIVE) Urine Glucose (UA) Negative (NEGATIVE) Urine Ketones 1+ (NEGATIVE) Urine Occult Blood 1+ (NEGATIVE) Urine Nitrite Negative (NEGATIVE) Urine Bilirubin Negative (NEGATIVE) Urine Urobilinogen 1 MG/DL (0.0-1.0) Urine Leukocyte Esterase 1+ (NEGATIVE) Urine RBC 2-4 /HPF (0 - 0) Urine WBC 5-10 /HPF (0 - 0) Urine Squamous Epithelial Cells None /LPF (NONE/OCC) Urine Amorphous Sediment Few /LPF (NONE) Urine Bacteria Moderate /HPF (NONE) Urine Yeast Few /HPF (NONE) Hospital Course LABORATORY DATA: On admission from the ER, sodium 141, potassium 4.9, chloride 99, bicarbonate 27, BUN 17, creatinine 0.9, and glucose 103. First lactic acid is 2.70 second one is 1.30. Liver functions essentially unremarkable. First troponin less than 0.30. Total protein 7.2. Urinalysis is +2 protein, +1 ketones, nitrate negative, leukocytes +1, WBC of 5 to 10, few yeast, and moderate bacteria. WBC of 10.0, hemoglobin of 14, hematocrit 42, and platelet 171,000. Chest x-ray is unremarkable. ASSESSMENT: 1. Sepsis secondary urinary tract infection. 2. Dehydration. 3. Dementia. 4. Toxic metabolic encephalopathy most likely secondary to the sepsis. PLAN: Admit the patient to medical/surgical. We will followup laboratories. IV hydration, broad-spectrum antibiotics with vancomycin and cefepime. We will follow up with the culture. DVT prophylaxis Heparin subcutaneous. Resume home medications. We will monitor laboratory in the morning. Infectious Diseases ASSESSMENT: The patient is a 76-year-old male with multiple medical problems, who has been admitted to this medical center for worsening mental status, possible urinary tract infection, rule out bacteremia. Based on exam and work up so far, he has no possible source of infection. If the patient's culture stays stable and afebrile, we may stop antibiotics soon. PLAN: 1. We will continue the patient on cefepime, discontinue vancomycin. 2. Monitor CBC. 3. Monitor BMP. 4. Monitor cultures (blood and urine). 5. Monitor clinical picture. 6. Monitor chest x-ray. 7. Based on the patient's clinical course and labs, we will do further recommendation. Pulmonary ASSESSMENT: 1. Sepsis secondary urinary tract infection. 2. Dehydration. 3. Dementia. 4. Toxic metabolic encephalopathy most likely secondary to the sepsis. PLAN: IV hydration, broad-spectrum antibiotics with vancomycin and cefepime. DVT prophylaxis. Heparin subcutaneous. Resume home medications. I will monitor laboratory in the morning. FINAL COURSE ASSESSMENT: 1. Sepsis resolved. 2. Dehydration. Resolved 3. Dementia. Baseline 4. All cultures negative PLAN: DC home PO Levaquin Discussed with ID Family notified. Discharge Medications New Medications: Levofloxacin* (Levaquin*) 500 Mg Tablet 500 MG ORAL DAILY for 5 Days, TAB Continued Medications: Aspirin* (Aspir 81*) 81 Mg Tablet.dr 81 MG ORAL DAILY, TAB Atorvastatin Calcium* (Atorvastatin Calcium*) 20 Mg Tablet 20 MG ORAL BEDTIME, TAB Donepezil Hcl* (Donepezil Hcl*) 10 Mg Tab.rapdis 10 MG ORAL DAILY, TAB Memantine Hcl* (Namenda*) 10 Mg Tablet 10 MG ORAL DAILY, TAB Discharge Condition Upon Discharge: stable Discharge Disposition Patient was discharged to Home (01) Discharge Diagnoses: (1) Dementia (2) Sepsis (3) Episode of generalized weakness (4) Syncope Discharge Instructions Discharge Instructions Special Instructions Patient discharged with son at 1400. Patient belongings verified, list placed in chart. IV site and ID band removed. Respirations even and unlabored, patient denied pain. Prescription and discharge packet given to son Sina Tena I have been assigned to the discharge summary of this patient and did not provide any care for the patient. Alisson Alisson Barakat NP, N.P. Oct 30, 2016 10:42
--- NOTE | 2016-10-30 17:05 | Cardiology Report ---
APPROVED REPORT EKG Measurement Heart [id number] Normal sinus rhythm Normal ECG
== END 2016-10-29 14:00 | disposition home health service (06) | DRG 871 ==
LOC: ENRESERVDT → ENRESERVTM → EDBD 15:33 → EMR 16:06 → 4E 16:12 → EDBEDREQ 18:03 → 4E 10-27 18:59
DX: A41.9 Sepsis, unspecified organism (principal); G92 Toxic encephalopathy; N39.0 Urinary tract infection, site not specified; G30.9 Alzheimer's disease, unspecified; F02.80 Dementia in other diseases classified elsewhere, unspecified severity, without behavioral disturbance, psychotic disturbance, mood disturbance, and anxiety; E86.0 Dehydration; R53.1 Weakness
CPT/HCPCS: 36415; 71010; 80048; 80053; 81003; 82550; 82553; 83605; 83735; 84100; 84484; 85007; 85025; 87040; 87086; 93005

== ENCOUNTER 2017-01-03 19:44 | Inpatient (IN) | payer MEDICAID, OTHER ==
[~2017-01-03] VITALS: Ht 182.9 cm; Wt 68.0 kg
[~2017-01-03 19:44] MED LIST changes: +LEVAQUIN500 MG ORAL
[2017-01-03 20:18] VITALS: BP 131/70
[2017-01-03 20:42] LABS: TROPONIN I < 0.30 ng/mL (<=0.30)
[2017-01-03 20:46] LABS: ALANINE AMINOTRANSFERASE 33 U/L (3-41); ALBUMIN/GLOBULIN RATIO 1.2 (1.0-2.7); ANION GAP 14 (5-15); ASPARTATE AMINO TRANSFERASE 29 U/L (5-40); CALCIUM 9.4 mg/dL (8.6-10.2); CARBON DIOXIDE 25 mEQ/L (20-30); CHLORIDE 99 mEQ/L (98-107); CREATININE 1.1 mg/dL (0.7-1.2); HEMOLYSIS 16; POTASSIUM 4.3 mEQ/L (3.4-4.9); SODIUM 138 mEQ/L (135-145); TOTAL PROTEIN 7.3 g/dL (6.6-8.7)
[2017-01-03 20:53] LABS: BASOPHILS % (AUTO) 1.3 % (0.0-2.0); LYMPHOCYTES % (AUTO) 15.5 % (20.0-45.0); MEAN CORPUSCULAR HEMOGLOBIN 27.7 PG (27.0-31.0); MEAN CORPUSCULAR VOLUME 92 FL (80-99); MEAN PLATELET VOLUME 6.4 FL (6.5-10.1); MONOCYTES % (AUTO) 4.3 % (1.0-10.0); NEUTROPHILS % (AUTO) 77.9 % (45.0-75.0); PLATELET COUNT 130 K/UL (150-450); RED BLOOD COUNT 4.43 M/UL (4.70-6.10); RED CELL DISTRIBUTION WIDTH 12.9 % (11.6-14.8); WHITE BLOOD COUNT 9.7 K/UL (4.8-10.8)
--- NOTE | 2017-01-03 20:55 | Emergency Room Report ---
History of Present Illness General Chief Complaint: Syncope Source: Patient, Family Member, EMS Present Illness HPI This patient is accompanied by his son. The patient has severe dementia. 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 The son states that the patient was in the bathroom. He hadn't had a bowel movement today. He states that normally he has regular bowel movements. He states that he heard a crash in the bathroom and when he went into the bathroom he found his dad on the floor between the bathtub and a platelet. He was unresponsive but his eyes were open. He states that his skin was sweaty and clammy. He states he was concerned that he wasn't breathing. He states he pulled him on the floor and did several chest compressions. He states he also specialist water. He states that then he came to and seemed to be his normal self. EMS report that on their arrival he did have a systolic blood pressure of about 90. The patient himself has no complaints. The patient denies chest pain or shortness of breath. The patient denies abdominal pain. Patient denies neck pain or headache. There are no other complaints. Allergies: Coded Allergies: No Known Allergies (Unverified , 08/11/15) Patient History Past Medical History: dementia, other - Hx of prostate CA Social History: Denies: alcohol use, drug use, smoking Reviewed Nursing Documentation: PMH: Agreed, PSxH: Agreed Nursing Documentation-PMH Past Medical History: No History, Except For Hx Cardiac Problems: No Hx Asthma: No - BPH Hx Cancer: No Hx Gastrointestinal Problems: No History Of Psychiatric Problem: Yes - Dementia Hx Neurological Problems: Yes Hx Dementia: Yes Hx Alzheimer's Disease: Yes Review of Systems All Other Systems: negative except mentioned in HPI Physical Exam Vital Signs Date Time Temp Pulse Resp B/P Pulse Ox O2 Delivery O2 Flow Rate FiO2 01/03/17 19:40 75 16 135/72 97 Room Air Sp02 EP Interpretation: reviewed, normal General Appearance: no apparent distress, alert, GCS 15, non-toxic Head: normocephalic, atraumatic Eyes: bilateral eye PERRL, bilateral eye normal inspection ENT: hearing grossly normal, normal pharynx, no angioedema, normal voice Neck: full range of motion, supple/symm/no masses Respiratory: chest non-tender, lungs clear, normal breath sounds, speaking full sentences Cardiovascular #1: regular rate, rhythm, no edema Gastrointestinal: normal bowel sounds, non tender, soft, non-distended, no guarding, no rebound Rectal: deferred Musculoskeletal: back normal, normal range of motion, non-tender Neurologic: alert, responsive, keyboard instrument tuner III-XII nml as tested, motor strength/tone normal, sensory intact, speech normal Psychiatric: mood/affect normal, no suicidal/homicidal ideation Skin: normal color, no rash, warm/dry, well hydrated Medical Decision Making Diagnostic Impression: Primary Impression: Syncope ER Course This elderly male presents with a syncopal episode. Initial workup to include CBC, CMP, cardiac enzymes, chest x-ray and EKG is unremarkable. However, given the patient's age, I felt that this patient should be admitted to telemetry for further cardiac monitoring and serial cardiac enzymes to rule out pathologic arrhythmia. PT to transfer at the request of the insurance company. Labs Test 01/03/17 20:10 White Blood Count 9.7 K/UL (4.8-10.8) Red Blood Count 4.43 M/UL (4.70-6.10) Hemoglobin 12.3 G/DL (14.2-18.0) Hematocrit 40.8 % (42.0-52.0) Mean Corpuscular Volume 92 FL (80-99) Mean Corpuscular Hemoglobin 27.7 PG (27.0-31.0) Mean Corpuscular Hemoglobin Concent 30.0 G/DL (32.0-36.0) Red Cell Distribution Width 12.9 % (11.6-14.8) Platelet Count 130 K/UL (150-450) Mean Platelet Volume 6.4 FL (6.5-10.1) Neutrophils (%) (Auto) 77.9 % (45.0-75.0) Lymphocytes (%) (Auto) 15.5 % (20.0-45.0) Monocytes (%) (Auto) 4.3 % (1.0-10.0) Eosinophils (%) (Auto) 1.0 % (0.0-3.0) Basophils (%) (Auto) 1.3 % (0.0-2.0) Sodium Level 138 mEQ/L (135-145) Potassium Level 4.3 mEQ/L (3.4-4.9) Chloride Level 99 mEQ/L (98-107) Carbon Dioxide Level 25 mEQ/L (20-30) Anion Gap 14 (5-15) Blood Urea Nitrogen 17 mg/dL (7-23) Creatinine 1.1 mg/dL (0.7-1.2) Estimat Glomerular Filtration Rate mL/min (>60) Glucose Level 136 mg/dL (74-106) Calcium Level 9.4 mg/dL (8.6-10.2) Total Bilirubin 0.3 mg/dL (0.0-1.2) Aspartate Amino Transf (AST/SGOT) 29 U/L (5-40) Alanine Aminotransferase (ALT/SGPT) 33 U/L (3-41) Alkaline Phosphatase 84 U/L (40-129) Total Creatine Kinase 57 U/L (38-174) Creatine Kinase MB < 1.5 ng/mL (< 6.7) Creatine Kinase MB Relative Index Troponin I < 0.30 ng/mL (<=0.30) Total Protein 7.3 g/dL (6.6-8.7) Albumin 4.0 g/dL (3.5-5.2) Globulin 3.3 g/dL Albumin/Globulin Ratio 1.2 (1.0-2.7) EKG Diagnostic Results Rate: normal Rhythm: other ST Segments: no acute changes Other Impression SR w/ 1st degree AV block. Prolonged Qt. Rhythm Strip Diag. Results EP Interpretation: yes Rate: 70's Rhythm: NSR, no PVC's, no ectopy Chest X-Ray Diagnostic Results Chest X-Ray Ordered: Yes # of Views/Limited/Complete: 1 View Interpretation: no consolidation, no effusion, no pneumothorax, no acute cardiopulmonary disease Indication: Other Impression: No acute disease Date Electronically Signed: Jan 03, 2017 Time Electronically Signed: 20:53 Interpreting ER Physician: Alessandro CT/MRI/US Diagnostic Results CT/MRI/US Diagnostic Results : Imaging Test Ordered: CT head Last Vital Signs Date Time Temp Pulse Resp B/P Pulse Ox O2 Delivery O2 Flow Rate FiO2 01/03/17 20:18 73 12 131/70 95 Room Air Disposition: XFER SHT-TRM HOSP Condition: Stable MARCIA DAHL D.O. Jan 03, 2017 20:55
[2017-01-03 20:56] LABS: CKMB < 1.5 ng/mL (< 6.7)
[2017-01-04 00:08] VITALS: BP 134/83
[2017-01-04 01:17] VITALS: BP 139/76
[2017-01-04 06:42] VITALS: BP 152/97
--- NOTE | 2017-01-04 09:24 | Diagnostic Imaging Report ---
Indications: Shortness of breath, syncope Technique: Portable AP chest Findings: Comparison: 10/26/2016 Cardiac silhouette remains normal in size. Pulmonary vasculature remains within normal limits. Lungs and pleura remain clear. Mild calcification of the aortic arch, bilateral glenohumeral degenerative arthropathy again noted.. IMPRESSION: No evidence of acute disease, unchanged Stable chronic changes as described
--- NOTE | 2017-01-05 01:30 | History and Physical Report ---
DATE OF EVALUATION: 01/04/2017 INTERNAL MEDICINE CONSULTATION/HISTORY AND PHYSICAL HISTORY OF PRESENT ILLNESS: This is an elderly male, who is 76 years old. He has a history of dementia. He apparently was found in the bathroom with constipation. The son apparently found him and found that he was in the bathroom on the floor. He was unresponsive. He was brought to the emergency room and he was brought to the ER and he was found to be hypotensive with a blood pressure of 90. PAST MEDICAL HISTORY: Notable for dementia and prostate CA. REVIEW OF SYSTEMS: The patient is unable to respond at this point in time. PHYSICAL EXAMINATION: GENERAL: Reveals an elderly male. VITAL SIGNS: Blood pressure is 130/70 per ER, heart rate 75, and respiratory rate 16. Examination in the ER is unremarkable. IMPRESSION: Syncope. DISCUSSION: The patient's labs at this time are unremarkable. I have discussed this case with the ER physician and likely the patient may be safely transferred to a contracted facility. We will discuss further transportation and other managements with the caser up. We will follow as mine deputy. Nick Sanders M.D. DR: AJIT JOB#: [id number] CC: HALIMA
--- NOTE | 2017-01-05 09:34 | Diagnostic Imaging Report ---
Indications: SYNCOPE Technique: Continuous helical CT imaging of the brain was performed with automatic exposure control on a Siemens sensation [address] scanner. Axial and coronal images were reconstructed at 5 mm slice thickness and interval. CTDI volume(s): 70 mGy Total DLP: 1520 mGy-cm Findings: Comparison: 01/09/2016 Chronic microvascular ischemic changes bilateral cerebral periventricular and deep white matter, prominent diffuse atrophy with ventricular dilation unchanged.. No evidence of mass or hemorrhage, other attenuation abnormality, mass effect, midline shift, hydrocephalus or increased intracranial pressure. Bone window images are unremarkable. Mucoperiosteal thickening remain scattered throughout the paranasal sinuses. Bilateral Mastoid air cells are clear. IMPRESSION: No evidence of acute intracranial pathology, unchanged stable chronic age-related changes as described. Persistent sinus disease This correlates with Dr. Montilla's preliminary report. The CT scanner at [facility] is accredited by the [employer] and the scans are performed using protocols designed to limit radiation exposure to as low as reasonably achievable to attain images of sufficient resolution adequate for diagnostic evaluation.
--- NOTE | 2017-01-05 12:15 | Discharge Summary ---
Discharge Summary Hospital Course Date of Admission Jan 04, 2017 at 00:00 Date of Discharge Jan 04, 2017 at 02:31 Admitting Diagnosis syncope HPI Sina Ernandez is a 76 year old male who was admitted on Jan 04, 2017 at 00:00 for Syncope Hospital Course [id number] Discharge Discharge Disposition Patient was discharged to Acute Care Facility(02) Discharge Diagnoses: Lana Velasquez NP Jan 05, 2017 12:15
--- NOTE | 2017-01-06 01:00 | Discharge Summary 2 SIG ---
DATE OF ADMISSION: 01/04/2017 DATE OF DISCHARGE: 01/04/2017 BRIEF HOSPITAL COURSE: The patient is a 76-year-old elderly male with history of dementia was apparently found on the bathroom floor. He was unresponsive. He was brought to the emergency room. On evaluation was found to be hypotensive. CT of the head done showed no evidence of acute intracranial pathology with stable chronic age-related changes. Chest x-ray showed no evidence of acute disease. The patient was admitted to telemetry and was eventually transferred to contracted facility. FINAL DIAGNOSIS: Syncope. Nick Sanders M.D. I have been assigned to dictate discharge summary on this account and I was not involved in the patient's management. Lana Velasquez N.P. DR: Jeovanny JOB#: [id number] CC:
== END 2017-01-04 02:31 | disposition short-term general hospital (02) | DRG 316 ==
LOC: EDBD 19:44 → EMR 20:25 → 2E 01-04 → EDBEDREQ 01-04 00:53 → 2E 01-04 01:42
DX: I95.9 Hypotension, unspecified (principal); F03.90 Unspecified dementia, unspecified severity, without behavioral disturbance, psychotic disturbance, mood disturbance, and anxiety; Z85.46 Personal history of malignant neoplasm of prostate; K59.00 Constipation, unspecified; I44.0 Atrioventricular block, first degree
CPT/HCPCS: 36415; 70450; 71010; 80053; 82550; 82553; 84484; 85025; 93005

== ENCOUNTER 2017-01-15 15:22 | Emergency (ER) | payer MEDICARE, OTHER ==
[~2017-01-15] VITALS: Ht 182.9 cm; Wt 70.3 kg
[2017-01-15 15:39] VITALS: BP 129/86
--- NOTE | 2017-01-15 16:09 | Emergency Room Report ---
History of Present Illness General Chief Complaint: Skin Rash/Abscess Source: Patient (June Shirley) Present Illness HPI 76 YO Male Presents to emergency department brought by son for new onset of rash between the digits of hands bilaterally and left forearm x 2 days. Son is also concerned that today he noted some blistering. Denies fevers or chills, new medications. Son reports using a new detergent and he believes that it may be irritating his father skin has several weeks ago he had irritation to the bilateral forearms after changing the to new detergent. denies wheezing, SOB, swelling of the lips or tongue. Denies changes from baseline mental status, denies bleeding, discharge from the wounds. Denies history of eczema. denies recent illness/uri. denies lesions/rash elsewhere on the body. Denies CP, Palpitations, LOC, AMS, dizziness, Changes in Vision, Sensation, paresthesias, or a sudden severe headache. (June Shirley) Allergies: Coded Allergies: No Known Allergies (Unverified , 08/11/15) Patient History Past Medical History: see triage record Past Surgical History: none Pertinent Family History: none Reviewed Nursing Documentation: PMH: Agreed, PSxH: Agreed (June Shirley) Nursing Documentation-PMH Hx Cardiac Problems: No Hx Asthma: No - BPH Hx Cancer: No Hx Gastrointestinal Problems: No Hx Neurological Problems: Yes Hx Dementia: Yes Hx Alzheimer's Disease: Yes (June Shirley) Review of Systems All Other Systems: negative except mentioned in HPI (June Shirley) Physical Exam Vital Signs Date Time Temp Pulse Resp B/P Pulse Ox O2 Delivery O2 Flow Rate FiO2 01/15/17 15:29 99.0 75 15 129/86 99 01/15/17 15:39 Room Air Sp02 EP Interpretation: reviewed, normal General Appearance: no apparent distress, alert, GCS 15, non-toxic Head: normocephalic, atraumatic Eyes: bilateral eye PERRL, bilateral eye normal inspection ENT: hearing grossly normal, normal pharynx, no angioedema, normal voice Neck: full range of motion, supple/symm/no masses Respiratory: lungs clear, normal breath sounds, no wheezing, speaking full sentences Cardiovascular #1: regular rate, rhythm, no edema Musculoskeletal: back normal, gait/station normal, normal range of motion, non- tender Neurologic: alert, responsive, motor strength/tone normal, sensory intact, speech normal, other - Pt. not oriented, this is his baseline Psychiatric: judgement/insight normal, memory normal, mood/affect normal Skin: normal color, warm/dry, well hydrated, rash - erythematous papules with small blisters between the webs of the fingers, mild erythema and flesh colore papules on the left fore arm, no appreciable excoriations, no sloughing of the skin, no lesions or rashes elsewhere. Spares the palms and soles, no oral lesions Lymphatic: no adenopathy (June Shirley) Medical Decision Making PA Attestation Dr. seth is my supervising Physician whom patient management has been discussed with. (June Shirley) Medicare Attestation The history of Sina Ernandez has been reviewed and management options for him have been examined and discussed by Bon Sharma. I have personally examined and interviewed the patient. (BON SHARMA M.D.) Diagnostic Impression: Primary Impression: Rash and other nonspecific skin eruption ER Course Pt. presents to the ED c/o rash between the fingers of both hands, and the left fore arm x 2 days. Ddx considered but are not limited to cellulitis, scabies, shingles, varicella, dermatitis, urticaria, eczema, tinea Vital signs: are WNL, pt. is afebrile H&PE are most consistent with dermatitis/ dyshidrotic rash suspicious for mild secondary infection will also treat with oral abx. ORDERS: none required at this time, the diagnosis is clinical ED INTERVENTIONS: None required at this time. DISCHARGE: At this time pt. is stable for d/c to home. Will provide printed patient care instructions, and any necessary prescriptions. Care plan and follow up instructions have been discussed with the patient prior to discharge. (June Shirley) Last Vital Signs Date Time Temp Pulse Resp B/P Pulse Ox O2 Delivery O2 Flow Rate FiO2 01/15/17 15:39 99.0 75 15 129/86 99 Room Air (June ShirleyAEnriqueta) Disposition: HOME, SELF-CARE Condition: Stable Scripts Triamcinolone Acet (Triamcinolone Acetonide) 15 Gm Cream..g. 15 GM APPLIC BID, #15 GM Prov: June Shirley 01/15/17 Cephalexin* (KEFLEX*) 500 Mg Capsule 500 MG ORAL EVERY 12 HOURS for 7 Days, #14 CAP 0 Refills Prov: June Shirley 01/15/17 Patient Instructions: Rash Additional Instructions: Take medications as directed. Follow up with PCP and or MEDIA SERVICES DIRECTOR in 3-5 days Return sooner to ED if new symptoms occur, or current symptoms become worse. - Please note that this Emergency Department Report was dictated using [employer] department chair technology software, occasionally this can lead to erroneous entry secondary to interpretation by the dictation equipment. June Shirley Jan 15, 2017 16:09 BON SHARMA M.D. Jan 18, 2017 05:12
[2017-01-15] MEDS ORDERED: KENALOG 0.025%15 GM APPLIC (16:10)
[2017-01-15] MEDS ORDERED: CEPHALEXIN500 MG ORAL (16:10)
[2017-01-15 16:21] VITALS: BP 129/86
== END 2017-01-15 16:30 | disposition home or self-care (01) ==
LOC: EMR 16:25
DX: R21 Rash and other nonspecific skin eruption (principal); G30.9 Alzheimer's disease, unspecified; F02.80 Dementia in other diseases classified elsewhere, unspecified severity, without behavioral disturbance, psychotic disturbance, mood disturbance, and anxiety
CPT/HCPCS: 99284

== ENCOUNTER 2017-06-12 16:10 | Inpatient (IN) | payer MEDICARE ==
[~2017-06-12] VITALS: Ht 182.9 cm; Wt 68.0 kg
[~2017-06-12 16:10] MED LIST changes: +CEPHALEXIN500 MG ORAL; +KENALOG 0.025%15 GM APPLIC
[2017-06-12 16:25] VITALS: BP 116/69
[2017-06-12 17:52] LABS: EOSINOPHILS % (AUTO) 1.5 % (0.0-3.0); LYMPHOCYTES % (AUTO) 15.3 % (20.0-45.0); MEAN CORPUSCULAR HEMOGLOBIN 29.1 PG (27.0-31.0); MEAN CORPUSCULAR HGB CONC 30.3 G/DL (32.0-36.0); MEAN CORPUSCULAR VOLUME 96 FL (80-99); MEAN PLATELET VOLUME 7.1 FL (6.5-10.1); MONOCYTES % (AUTO) 4.5 % (1.0-10.0); NEUTROPHILS % (AUTO) 77.7 % (45.0-75.0); PLATELET COUNT 173 K/UL (150-450); RED BLOOD COUNT 4.32 M/UL (4.70-6.10); RED CELL DISTRIBUTION WIDTH 13.7 % (11.6-14.8); WHITE BLOOD COUNT 13.6 K/UL (4.8-10.8)
[2017-06-12 18:00] VITALS: BP 137/79
[2017-06-12 18:00] LABS: ANION GAP 9 mmol/L (5-15); CALCIUM 9.1 MG/DL (8.5-10.1); CARBON DIOXIDE 27 MMOL/L (21-32); CHLORIDE 104 MMOL/L (98-107); POTASSIUM 3.7 MMOL/L (3.5-5.1); SODIUM 140 MMOL/L (136-145)
[2017-06-12 18:13] LABS: ALANINE AMINOTRANSFERASE 43 U/L (12-78); ALBUMIN/GLOBULIN RATIO 0.9 (1.0-2.7); ASPARTATE AMINO TRANSFERASE 27 U/L (15-37); CKMB 0.5 NG/ML (0.0-3.6); TOTAL PROTEIN 7.3 G/DL (6.4-8.2)
[2017-06-12 18:19] LABS: APPEARANCE,URINE CLEAR; KETONES,URINE 2+ (NEGATIVE); LEUKOCYTE ESTERASE ,URINE NEGATIVE (NEGATIVE); NITRITE,URINE NEGATIVE (NEGATIVE); PH,URINE 6 (4.5-8.0); PROTEIN,URINE 2+ (NEGATIVE); UROBILINOGEN,URINE NORMAL MG/DL (0.0-1.0)
[2017-06-12] MEDS ORDERED: UNOBMED (18:21)
[2017-06-12 18:27] LABS: WBC,URINE 0-2 /HPF (0 - 0)
[2017-06-12 18:28] LABS: BACTERIA,URINE OCCASIONAL /HPF
[2017-06-12 20:00] VITALS: BP_SYST 136; BP_SYST 155; BP_DIAS 90; BP_DIAS 95
[2017-06-12 21:00] VITALS: BP 141/90
--- NOTE | 2017-06-12 22:16 | Emergency Room Report ---
History of Present Illness General Chief Complaint: Altered Level of Consciousness Source: Family Member, EMS Present Illness HPI 77-year-old male presents ED for evaluation. Son at bedside states that patient had a syncopal episode today while outside. Afterwards patient appears more confused than usual. Patient does have dementia at baseline. Upon arrival patient showing no signs of distress but is unable to provide any additional history at this time. Denies chest pain or shortness of breath. Denies fevers or chills. No other aggravating relieving factors. Denies any other associated symptoms Allergies: Coded Allergies: No Known Allergies (Unverified , 08/11/15) Patient History Past Medical History: dementia Past Surgical History: none Pertinent Family History: none Social History: Denies: smoking, alcohol use, drug use Immunizations: UTD Reviewed Nursing Documentation: PMH: Agreed, PSxH: Agreed Nursing Documentation-PMH Past Medical History: No History, Except For Hx Cardiac Problems: No - DEMENTIA Hx Asthma: No - BPH Hx Cancer: No Hx Gastrointestinal Problems: No Hx Neurological Problems: Yes Hx Dementia: Yes Hx Alzheimer's Disease: Yes Review of Systems All Other Systems: limited Physical Exam Vital Signs Date Time Temp Pulse Resp B/P (MAP) Pulse Ox O2 Delivery O2 Flow Rate FiO2 06/12/17 16:04 94.3 68 16 97/55 98 Room Air Sp02 EP Interpretation: reviewed, normal General Appearance: no apparent distress, alert, GCS 15, non-toxic Head: normocephalic, atraumatic Eyes: bilateral eye normal inspection, bilateral eye PERRL ENT: hearing grossly normal, normal pharynx, no angioedema, normal voice Neck: full range of motion, supple/symm/no masses Respiratory: chest non-tender, lungs clear, normal breath sounds, speaking full sentences Cardiovascular #1: regular rate, rhythm, no edema Cardiovascular #2: 2+ carotid (R), 2+ carotid (L), 2+ radial (R), 2+ radial (L) , 2+ dorsalis pedis (R), 2+ dorsalis pedis (L) Gastrointestinal: normal bowel sounds, non tender, soft, non-distended, no guarding, no rebound Rectal: deferred Genitourinary: normal inspection, no CVA tenderness Musculoskeletal: back normal, gait/station normal, normal range of motion, non- tender Neurologic: other - confused Psychiatric: other - confused Reflexes: 3+ bicep (R), 3+ bicep (L), 3+ tricep (R), 3+ tricep (L), 3+ knee (R) , 3+ knee (L) Skin: normal color, no rash, warm/dry, well hydrated Lymphatic: no adenopathy Medical Decision Making Diagnostic Impression: Primary Impression: Altered level of consciousness Additional Impression: Syncope Qualified Codes: R55 - Syncope and collapse ER Course Hospital Course 77-year-old M presents ED s/p syncopal episode, altered Differential diagnoses include: FL/unstable angina, arrythmia, dehydration, CVA/ TIA Clinical course Patient placed on stretcher. on monitoring specialist. After initial history and physical I ordered labs, EKG, chest x-ray, IVFs, CT Brain labs reviewed- minimal leukocytosis, hemoglobin/hematocrit ok, electrolytes okay , troponins negative EKG- NSR, 1st degree av block Chest x-ray- no acute process CT brain-unremarkable Case discussed with Dr. Taylor and he agreed to accept the patient to his service for further care and support I. I feel this is a highly complex case requiring extensive working including EKG/Rhythm strip, Xray/CT/US, Blood/urine lab work, repeat exams while in ED, and administration of strong opiates/narcotics for pain control, admission to hospital or close patient follow up. Diagnosis -ALOC, syncope admitted to telemetry in serious condition Labs Test 06/12/17 17:00 06/12/17 18:07 White Blood Count 13.6 K/UL (4.8-10.8) Red Blood Count 4.32 M/UL (4.70-6.10) Hemoglobin 12.6 G/DL (14.2-18.0) Hematocrit 41.4 % (42.0-52.0) Mean Corpuscular Volume 96 FL (80-99) Mean Corpuscular Hemoglobin 29.1 PG (27.0-31.0) Mean Corpuscular Hemoglobin Concent 30.3 G/DL (32.0-36.0) Red Cell Distribution Width 13.7 % (11.6-14.8) Platelet Count 173 K/UL (150-450) Mean Platelet Volume 7.1 FL (6.5-10.1) Neutrophils (%) (Auto) 77.7 % (45.0-75.0) Lymphocytes (%) (Auto) 15.3 % (20.0-45.0) Monocytes (%) (Auto) 4.5 % (1.0-10.0) Eosinophils (%) (Auto) 1.5 % (0.0-3.0) Basophils (%) (Auto) 1.0 % (0.0-2.0) Sodium Level 140 MMOL/L (136-145) Potassium Level 3.7 MMOL/L (3.5-5.1) Chloride Level 104 MMOL/L (98-107) Carbon Dioxide Level 27 MMOL/L (21-32) Anion Gap 9 mmol/L (5-15) Blood Urea Nitrogen 19 mg/dL (7-18) Creatinine 1.0 MG/DL (0.55-1.30) Estimat Glomerular Filtration Rate mL/min (>60) Glucose Level 142 MG/DL (74-106) Calcium Level 9.1 MG/DL (8.5-10.1) Total Bilirubin 0.3 MG/DL (0.2-1.0) Aspartate Amino Transf (AST/SGOT) 27 U/L (15-37) Alanine Aminotransferase (ALT/SGPT) 43 U/L (12-78) Alkaline Phosphatase 84 U/L (46-116) Total Creatine Kinase 51 U/L (26-308) Creatine Kinase MB 0.5 NG/ML (0.0-3.6) Creatine Kinase MB Relative Index 0.9 Troponin I 0.002 ng/mL (0.000-0.056) Pro-B-Type Natriuretic Peptide 272 pg/mL (0-125) Total Protein 7.3 G/DL (6.4-8.2) Albumin 3.4 G/DL (3.4-5.0) Globulin 3.9 g/dL Albumin/Globulin Ratio 0.9 (1.0-2.7) Urine Color Yellow Urine Appearance Clear Urine pH 6 (4.5-8.0) Urine Specific [place] 1.020 (1.005-1.035) Urine Protein 2+ (NEGATIVE) Urine Glucose (UA) Negative (NEGATIVE) Urine Ketones 2+ (NEGATIVE) Urine Occult Blood 3+ (NEGATIVE) Urine Nitrite Negative (NEGATIVE) Urine Bilirubin Negative (NEGATIVE) Urine Urobilinogen Normal MG/DL (0.0-1.0) Urine Leukocyte Esterase Negative (NEGATIVE) Urine RBC 2-4 /HPF (0 - 0) Urine WBC 0-2 /HPF (0 - 0) Urine Squamous Epithelial Cells None /LPF (NONE/OCC) Urine Bacteria Occasional /HPF (NONE) EKG Diagnostic Results Rate: normal Rhythm: other - 1st degree av block ST Segments: no acute changes ASA given to the pt in ED: No Rhythm Strip Diag. Results EP Interpretation: yes Rhythm: NSR, no PVC's, no ectopy Chest X-Ray Diagnostic Results Chest X-Ray Diagnostic Results : Chest X-Ray Ordered: Yes # of Views/Limited/Complete: 1 View Indication: Other - syncope EP Interpretation: Yes Interpretation: no consolidation, no effusion, no pneumothorax, no acute cardiopulmonary disease Impression: No acute disease Electronically Signed by: Electronically signed by Bon Sharma MD CT/MRI/US Diagnostic Results CT/MRI/US Diagnostic Results : Imaging Test Ordered: CT Head Impression no acute process Last Vital Signs Date Time Temp Pulse Resp B/P (MAP) Pulse Ox O2 Delivery O2 Flow Rate FiO2 06/12/17 20:05 97.7 06/12/17 20:00 48 25 136/90 Room Air 06/12/17 20:00 96 Status: improved Disposition: ADMITTED INPATIENT Condition: Serious Referrals: NON PHYSICIAN (PCP) BON SHARMA M.D. Jun 12, 2017 22:16
[2017-06-13 00:25] VITALS: BP 121/87
[2017-06-13] MEDS: NS w/KCl 20mEq 1,000 ML IV SCH ×2 (02:13→12:28)
[2017-06-13 04:17] VITALS: BP 151/96
[2017-06-13 06:27] LABS: BASOPHILS % (AUTO) 0.8 % (0.0-2.0); EOSINOPHILS % (AUTO) 0.5 % (0.0-3.0); LYMPHOCYTES % (AUTO) 19.1 % (20.0-45.0); MEAN CORPUSCULAR HEMOGLOBIN 29.5 PG (27.0-31.0); MEAN CORPUSCULAR HGB CONC 31.8 G/DL (32.0-36.0); MEAN CORPUSCULAR VOLUME 93 FL (80-99); MEAN PLATELET VOLUME 7.3 FL (6.5-10.1); MONOCYTES % (AUTO) 8.1 % (1.0-10.0); NEUTROPHILS % (AUTO) 71.6 % (45.0-75.0); PLATELET COUNT 164 K/UL (150-450); RED BLOOD COUNT 4.23 M/UL (4.70-6.10); RED CELL DISTRIBUTION WIDTH 13.4 % (11.6-14.8); WHITE BLOOD COUNT 9.6 K/UL (4.8-10.8)
[2017-06-13 07:53] LABS: ALANINE AMINOTRANSFERASE 34 U/L (12-78); ANION GAP 7 mmol/L (5-15); ASPARTATE AMINO TRANSFERASE 23 U/L (15-37); CARBON DIOXIDE 28 MMOL/L (21-32); CHLORIDE 109 MMOL/L (98-107); CREATININE 0.9 MG/DL (0.55-1.30); POTASSIUM 4.7 MMOL/L (3.5-5.1); SODIUM 144 MMOL/L (136-145); THYROID STIMULATING HORMONE 0.671 uiU/mL (0.358-3.740); TOTAL PROTEIN 6.6 G/DL (6.4-8.2)
[2017-06-13 08:53] VITALS: BP 149/90
--- NOTE | 2017-06-13 09:49 | Diagnostic Imaging Report ---
Indication: Shortness of breath Technique: One view of the chest Comparison: none Findings: No acute infiltrates, effusions, or congestion. Tortuous calcified aorta. Normal heart size. Upper mediastinum unremarkable. There are degenerative changes of both shoulders. No significant interim change Impression: No acute process.
--- NOTE | 2017-06-13 09:51 | Diagnostic Imaging Report ---
Indications: Technique: Spiral acquisitions obtained through the brain. Angled axial and coronal 5 x 5 mm slices were reconstructed. Total dose length product 1445 mGycm. CTDI vol(s) 70 mGy. Dose reduction achieved using automated exposure control Comparison: 01/03/2017 Findings: Again demonstrated is striking age-related enlargement of ventricles and extra-axial CSF spaces. Again demonstrated is fairly extensive periventricular deep white matter chronic ischemic change. Ethmoid sinus mucosal thickening is noted. There is minimal right mastoid opacification. Findings are overall unchanged Impression: Chronic and age-related changes, as described Negative for acute intracranial bleed or mass effect This agrees with the preliminary interpretation provided overnight by [employer] teleradiology service. The CT scanner at [facility] is accredited by the [employer] and the scans are performed using protocols designed to limit radiation exposure to as low as reasonably achievable to attain images of sufficient resolution adequate for diagnostic evaluation.
[2017-06-13 12:30] VITALS: BP 153/91
--- NOTE | 2017-06-13 15:22 | Cardiology Report ---
APPROVED REPORT EXAM: Two-dimensional and M-mode echocardiogram with Doppler and color Doppler. INDICATION Syncope M-Mode DIMENSIONS IVSd0.6 (0.7-1.1cm)Left Atrium (MM)3.7 (1.6-4.0cm) LVDd3.7 (3.5-5.6cm)Aortic Root3.4 (2.0-3.7cm) PWd1.3 (0.7-1.1cm)Aortic Cusp Exc.1.6 (1.5-2.0cm) LVDs1.9 (2.5-4.0cm) PWs1.9 cm Technically difficult study due to patients position. Normal left ventricular chamber size, systolic function and wall motion to extent visualized. Left ventricular ejection fraction estimated to be 60-65%. Study quality precludes accurate assessment of regional wall motion. Mild left ventricular hypertrophy. No evidence of pericardial effusion. All other cardiac chamber sizes are within normal limits. Focal aortic valve sclerosis with adequate cusp excursion. Thickened mitral valve leaflets with normal excursion. Mitral annulus and aortic root calcification. Pulmonic valve not well visualized. Normal tricuspid valve structure. IVC measured at 2.1 cm and collapsing with respiration. A color flow and spectral Doppler study was performed and revealed: Mild aortic insufficiency. Mitral diastolic velocities suggest reduced left ventricular relaxation c/w mild LV diastolic dysfunction (Grade I ). Trace tricuspid regurgitation. Tricuspid systolic velocities suggests peak right ventricular systolic pressure of 21 mmHg. No pulmonic regurgitation present.
--- NOTE | 2017-06-13 15:47 | History and Physical Report ---
DATE OF ADMISSION: 06/12/2017 CHIEF COMPLAINT: Syncope. HISTORY OF PRESENT ILLNESS: The patient is a 77-year-old male. He has a history of dementia. He presented from home with an apparent syncopal episode. The patient is confused. He is unable to provide any history. According to the patient's son, he had a syncopal episode while outside. He was more confused. Currently, he is awake. He does follow simple commands. It is unclear what his baseline is. He denies any diarrhea. No fevers. No chills. No chest pain. No shortness of breath. No heart palpitations. On initial evaluation in the emergency room, the patient was noted to be slightly bradycardic with a heart rate of 50. Initial laboratory tests showed a white count of 14,000. His CMP was relatively unremarkable. Troponin was negative. Urine was clear. CT scan of the head showed nothing acute. The patient is now admitted for further evaluation and care. PAST MEDICAL HISTORY: As above. PAST SURGICAL HISTORY: Unknown. CURRENT MEDICATIONS: Reconciled and reviewed. ALLERGIES: None. FAMILY HISTORY: Unknown. SOCIAL HISTORY: There is no known history of tobacco, ethanol, or drugs. REVIEW OF SYSTEMS: Difficult to obtain as the patient is currently confused. PHYSICAL EXAMINATION: VITAL SIGNS: Temperature 97.4, pulse 83, respirations 21, and blood pressure 151/96. GENERAL: The patient is a thin elderly male, in no apparent distress. He is easily arousable. NECK: Supple. There is no jugular venous distention. HEART: Regular rate and rhythm. LUNGS: Clear. ABDOMEN: Soft, nontender, and nondistended. EXTREMITIES: Without clubbing, cyanosis, or edema. The patient moves all four extremities. He is somewhat withdrawn. Speech is mostly fluent. Sensation is intact bilaterally. LABORATORY AND DIAGNOSTIC DATA: UA was negative. White count 13, hemoglobin 12, hematocrit 41. Potassium 3.7 and creatinine was 1. Troponin was 0.017. UA was clear. ASSESSMENT: This is a pleasant male, admitted with complaints of syncopal episode, unclear etiology. 1. Syncope. 2. Rule out bradycardia. 3. Rule out dehydration. 4. History of dementia. PLAN: 1. IV hydration. 2. Monitor orthostatics. 3. PT and OT evaluations. 4. Check carotid duplex. 5. Check an echo. 6. Cardiology consultation. Yaya Juarez M.D. DR: RAMAN JOB#: [id number] CC:
[2017-06-13 16:25] VITALS: BP 163/93
--- NOTE | 2017-06-14 07:02 | Discharge Summary ---
Discharge Summary Hospital Course Date of Admission Jun 12, 2017 at 17:57 Date of Discharge Jun 13, 2017 at 18:01 Admitting Diagnosis SYNCOPE,ALTERD MENTAL STATUS HPI Sina Ernandez is a 77 year old male who was admitted on Jun 12, 2017 at 17: 57 for Syncope, Altered Mental Status Hospital Course [id number] Discharge Discharge Disposition Patient was discharged to Home (01) Discharge Diagnoses: Lana Velasquez NP Jun 14, 2017 07:02
--- NOTE | 2017-06-14 15:15 | Discharge Summary 2 SIG ---
DATE OF ADMISSION: 06/12/2017 DATE OF DISCHARGE: 06/13/2017 BRIEF HOSPITAL COURSE: The patient is a 77-year-old male, who has history of dementia, who presented from home and had an apparent syncopal episode. The patient is confused. According to the patient's son, he had single syncopal episode while he was outside and became more confused. On evaluation at ED, he was noted to be slightly bradycardic with a heart rate of 50. Initial laboratory tests showed white count of 14,000. His CMP was relatively unremarkable. Troponin was negative. Urine was clear. CT scan of the head was negative for acute intracranial bleed or mass effect. He was admitted to telemetry for evaluation of syncopal episode. He was given IV hydration. He underwent echocardiogram. Results showed EF 60% to 65%. Carotid duplex showed no significant plaques in the common carotid and external carotid artery. There is mild and minimal stenosis on the internal carotid artery. Both vertebral artery is patent without evidence of stenosis or steal. Chest x-ray done showed no acute process. He was given physical therapy and occupational therapy. He was tolerating diet well. There was rapid improvement in the patient's symptoms with negative workup. The patient was then discharged home. FINAL DIAGNOSES: 1. Syncope. 2. Dehydration. 3. Rule out bradycardia. 4. Dementia. DISPOSITION: The patient was discharged home. DISCHARGE MEDICATIONS: Refer to medication list. Yaya Juarez M.D. I have been assigned to dictate discharge summary on this account and I was not involved in the patient's management. Lana Velasquez N.P. DR: Gracie JOB#: [id number] CC:
--- NOTE | 2017-06-18 10:16 | Diagnostic Imaging Report ---
APPROVED REPORT CPT Code: 10342 Vascular Symptoms Syncope Doppler Spectral Velocity Analysis RightLeft RIGHT SIDE: CCA - Imaging reveals no significant plaque in the common carotid artery. ICA The Doppler signal indicates the degree of stenosis is mild (30-50%) in the internal carotid artery, and (30%) in the external carotid artery. VERTEBRAL - The vertebral artery is patent, without evidence of stenosis or steal. LEFT SIDE: CCA/ECA - Imaging reveals no significant plaque in the common carotid and external carotid arteries. ICA - Imaging reveals irregular plaque in the internal carotid artery. The Doppler signal indicates the degree of stenosis is minimal (20%) in the internal carotid artery. VERTEBRAL - The vertebral artery is patent, without evidence of stenosis or steal.
--- NOTE | 2017-06-19 01:21 | Physician Query ---
PLEASE COMPLETE THE DOCUMENT BEFORE SIGNING Dear Dr. Juarez Date: 06/18/2017 Grain Manager/CDS Name: Hannah Hendrix CCS Exercise your independent professional judgment when responding to query. Question asked do not imply a particular answer is desired/expected Clinical Documentation States: The patient was admitted for an apparent syncopal episode. CT scan of the head was negative for acute intracranial bleed or mass effect. On evaluation at ED, he was noted to be slightly bradycardic with a heart rate of 50. He was given IV hydration for treatment of dehydration. Please specify the cause of the syncope: [] Orthostatic Hypotension [] Psychogenic [] Shock [] Dehydration [] Dialysis Disequilibrium Syndrome [] Heat [] Other: [] Unable to determine Please also document in your Progress Notes and/or Discharge Summary and indicate if the condition was present on admission. Yaya Juarez M.D. HALIMA
--- NOTE | 2017-06-20 17:18 | Cardiology Report ---
APPROVED REPORT EKG Measurement Heart [id number] Sinus rhythm with 1st degree AV block Nonspecific T wave abnormality Abnormal ECG
--- NOTE | 2017-06-21 09:24 | Physician Query ---
PLEASE COMPLETE THE DOCUMENT BEFORE SIGNING Dear Dr. Juarez Date: 06/21/2017 Retail Commission Sales Associate/CDS Name: Hannah Hendrix CCS Exercise your independent professional judgment when responding to query. Question asked do not imply a particular answer is desired/expected Clinical Documentation States: The patient was admitted for an apparent syncopal episode. CT scan of the head was negative for acute intracranial bleed or mass effect. On evaluation at ED, he was noted to be slightly bradycardic with a heart rate of 50. He was given IV hydration for treatment of dehydration. Please specify the cause of the syncope: [] Orthostatic Hypotension [] Psychogenic [] Shock [] Dehydration [] Dialysis Disequilibrium Syndrome [] Heat [] Other: [] Unable to determine Please also document in your Progress Notes and/or Discharge Summary and indicate if the condition was present on admission. Yaya Juarez M.D. Date & Time [facility]
--- NOTE | 2017-06-27 11:15 | Consultation ---
DATE OF CONSULTATION: 06/12/2017 CARDIOLOGY CONSULTATION REQUESTING PHYSICIAN: Yaya Juarez M.D. CONSULTING PHYSICIAN: Дмитрий Taylor M.D. REASON FOR CONSULT: Syncope. HISTORY OF PRESENT ILLNESS: This 77-year-old male presented to the emergency room after having an episode of apparently passing out. He was noted to be confused thereafter according to his son. No other associated symptoms were known. The patient was noted to have bradycardia. Cardiology consultation has been requested. PAST MEDICAL HISTORY: 1. Cerebrovascular disease with dementia. 2. Prostatic hypertrophy. ALLERGIES: None. MEDICATIONS: Reviewed and reconciled. FAMILY HISTORY: Noncontributory. SOCIAL HISTORY: Negative for smoking, alcohol, or substance abuse. REVIEW OF SYSTEMS: Cannot obtain review of systems at this time from the patient. PHYSICAL EXAMINATION: VITAL SIGNS: Blood pressure is 97/55, pulse 68, respiratory rate 16, and temperature 94.3. HEENT: Normocephalic and atraumatic. Conjunctivae pink. Oropharynx clear. NECK: Supple. Jugular venous pressure normal. LUNGS: Clear. CARDIAC: Regular rhythm and rate. Normal S1, S2 with a fourth heart sound. ABDOMEN: Soft, nontender. EXTREMITIES: No edema. NEUROLOGIC: No focal deficits. The patient is confused, can only respond to simple questions. LABORATORY AND DIAGNOSTIC DATA: White count 13.6, hemoglobin 12.6. Sodium 140, potassium is 3.7, bicarbonate 27, BUN 19, and creatinine 1. Troponin negative. Pro-natriuretic peptide 272. Albumin 3.4. Urinalysis, no white cells. EKG with sinus rhythm, first-degree AV block. Nonspecific T-wave changes. Ventricular rate of 79. IMPRESSION: 1. Syncopal episode, likely due to hypovolemia and orthostasis. 2. Hypothermia, likely due to exposure. 3. Cerebrovascular disease with dementia. 4. Transient bradycardia, likely due to hypothermia, now resolved. PLAN: 1. Cardiac monitoring. 2. Warming measures. 3. Saline hydration. 4. No antihypertensives at this time. 5. Aspirin prophylaxis. 6. We will attempt to expand database by speaking with the patient's son. 7. Physical and occupational therapy assessments to assess fall risk prior to discharge. Дмитрий Taylor M.D. DR: FADUMO JOB#: [id number] CC:
--- NOTE | 2017-06-27 12:00 | Progress Note ---
DATE: 06/14/2017 CARDIOLOGY PROGRESS NOTE SUBJECTIVE: The patient is awake, alert, and interactive. According to his son, he is at baseline mentation. Body temperature has now normalized. Monitored sinus rhythm with no recurring bradycardias. PHYSICAL EXAMINATION: VITAL SIGNS: Blood pressure 153/91. NECK: Supple. LUNGS: Clear. CARDIAC: Regular. Normal S1, S2. ABDOMEN: Soft. EXTREMITIES: No edema. LABORATORY DATA: Noted. IMPRESSION: 1. Orthostatic syncope. 2. Hypovolemia and dehydration corrected. 3. Hypothermia resolved. 4. Bradycardia secondary to hypothermia resolved. 5. Hypertension with mildly elevated blood pressure readings. 6. Dementia with baseline mentation at this time and associated fall risk. PLAN: 1. Avoid antihypertensives at this time due to potential for further aggravating orthostatic potential and fall/syncope. 2. Maintain adequate hydration as outpatient. 3. Physical/occupational therapy at home. 4. Antiplatelet therapy. 5. Outpatient followup. 6. Stable for discharge from cardiovascular standpoint. Дмитрий Taylor M.D. DR: FADUMO JOB#: [id number] CC:
== END 2017-06-13 18:01 | disposition home or self-care (01) | DRG 312 ==
LOC: EDBD 16:10 → EDBEDREQ 16:49 → EMR 17:34 → 2E 17:57 → EDBEDREQ 18:00
DX: I95.1 Orthostatic hypotension (principal); E86.0 Dehydration; F03.90 Unspecified dementia, unspecified severity, without behavioral disturbance, psychotic disturbance, mood disturbance, and anxiety; R00.1 Bradycardia, unspecified; I44.30 Unspecified atrioventricular block; N40.0 Benign prostatic hyperplasia without lower urinary tract symptoms
CPT/HCPCS: 36415; 51701; 70450; 71010; 80053; 81003; 82550; 82553; 83880; 84443; 84484; 85025; 93005; 93306; 93880; 99285

== ENCOUNTER 2018-11-17 16:52 | Observation (INO) | payer MEDICARE, OTHER ==
[~2018-11-17] VITALS: Ht 182.9 cm; Wt 77.1 kg
[~2018-11-17 16:52] MED LIST changes: +UNOBMED
[2018-11-17 16:55] VITALS: BP 119/75
--- NOTE | 2018-11-17 16:55 | NUR ---
ED Nurse Note: PAtient biba c/o syncope, patient's son reports of finding the patient with his head down on the table states that the patient was not responding and they started doing CPR, at time of arrival patient's VSS. patient's upper extremity is contracted, patient is able to make speeech with staff with yes or no answers but only sometimes.
[2018-11-17 17:19] LABS: APPEARANCE,URINE CLEAR; BASOPHILS % (AUTO) 1.4 % (0.0-2.0); BILIRUBIN, URINE NEGATIVE (NEGATIVE); COLOR,URINE PALE YELLOW; EOSINOPHILS % (AUTO) 1.9 % (0.0-3.0); GLUCOSE, URINE (UA) NEGATIVE (NEGATIVE); HEMATOCRIT 38.3 % (42.0-52.0); HEMOGLOBIN 12.3 G/DL (14.2-18.0); KETONES,URINE NEGATIVE (NEGATIVE); LEUKOCYTE ESTERASE ,URINE NEGATIVE (NEGATIVE); LYMPHOCYTES % (AUTO) 26.1 % (20.0-45.0); MEAN CORPUSCULAR VOLUME 88 FL (80-99); MONOCYTES % (AUTO) 6.9 % (1.0-10.0); NEUTROPHILS % (AUTO) 63.7 % (45.0-75.0); NITRITE,URINE NEGATIVE (NEGATIVE); PH,URINE 7 (4.5-8.0); PLATELET COUNT 156 K/UL (150-450); PROTEIN,URINE NEGATIVE (NEGATIVE); RED BLOOD COUNT 4.34 M/UL (4.70-6.10); UROBILINOGEN,URINE NORMAL MG/DL (0.0-1.0); WHITE BLOOD COUNT 8.1 K/UL (4.8-10.8)
[2018-11-17 17:34] LABS: ANION GAP 6 mmol/L (5-15); BLOOD UREA NITROGEN 15 mg/dL (7-18); CALCIUM 9.2 MG/DL (8.5-10.1); CARBON DIOXIDE 31 MMOL/L (21-32); CHLORIDE 104 MMOL/L (98-107); POTASSIUM 4.1 MMOL/L (3.5-5.1); SODIUM 141 MMOL/L (136-145)
[2018-11-17] MEDS ORDERED: CYCLOBENZAPRIN7.5 MG ORAL (17:46)
[2018-11-17 17:48] LABS: ALANINE AMINOTRANSFERASE 25 U/L (12-78); ALBUMIN 3.6 G/DL (3.4-5.0); ALBUMIN/GLOBULIN RATIO 0.9 (1.0-2.7); ALKALINE PHOSPHATASE 84 U/L (46-116); ASPARTATE AMINO TRANSFERASE 24 U/L (15-37); BILIRUBIN,TOTAL 0.3 MG/DL (0.2-1.0); CKMB 1.3 NG/ML (0.0-3.6); CREATINE KINASE 75 U/L (26-308)
--- NOTE | 2018-11-17 17:48 | Emergency Room Report ---
History of Present Illness General Chief Complaint: Syncope Source: EMS Present Illness HPI Patient is a 78-year-old male brought in by family member after reported syncopal episode. Patient had been found unconscious facedown. Patient had been noted to have decreased respirations at that time. Patient regained consciousness after CPR was initiated by patient's son. Patient was noted to have recently been prescribed Flexeril for decreased range of motion and contractures. Patient had previous history of dementia and was limitedly verbal. He had been able to ambulate with assistance as well as a walker.Patient had been noted to have some history of dementia and normally takes Namenda. Patient reportedly was having similar episode one day prior without complete loss of consciousness. He was recently started on Flexeril due to contractures. Allergies: Coded Allergies: No Known Allergies (Unverified , 08/11/15) Patient History Past Medical History: see triage record Reviewed Nursing Documentation: PMH: Agreed; PSxH: Agreed Nursing Documentation-PMH Past Medical History: No History, Except For Hx Cardiac Problems: No Hx Asthma: Yes Hx Cancer: No Hx Gastrointestinal Problems: No Hx Neurological Problems: Yes Hx Dementia: Yes Hx Alzheimer's Disease: Yes Review of Systems All Other Systems: limited - by mental status Physical Exam Vital Signs Date Time Temp Pulse Resp B/P (MAP) Pulse Ox O2 Delivery O2 Flow Rate FiO2 11/17/18 16:48 98.1 90 16 119/75 96 Room Air General Appearance: Chronically Ill Eyes: bilateral eye PERRL ENT: normal pharynx Neck: supple, limited range of motion Respiratory: lungs clear, no rhonchi Cardiovascular #1: normal peripheral pulses, regular rate, rhythm Gastrointestinal: non tender, soft Musculoskeletal: decreased range of motion Neurologic: aphasia, motor weakness, other - contracted aphasic Psychiatric: depressed affect Skin: normal inspection Lymphatic: normal inspection Medical Decision Making Diagnostic Impression: Primary Impression: Dementia Additional Impression: Syncope ER Course Patient 78-year-old male presented after a witnessed syncopal episode. Differential diagnosis included but was not limited to arrhythmia, orthostatic hypotension, hypovolemia, vasovagal, anemia among others. Per patient's son patient was noted to have some syncope which lasted approximate 1 minute and responded after brief CPR. Laboratory testing showed no evidence of anemia or electrolyte abnormalities. EKG interpreted by me showed normal sinus rhythm with a rate of [address] or T wave changes.Patient was noted to be normotensive. CT head read by radiology showed atrophic changes without evident acute intracranial hemorrhage. There was some ventriculomegaly noted Patient was discussed with Dr. Nick Sanders for inpatient management. Labs Test 11/17/18 17:00 White Blood Count 8.1 K/UL (4.8-10.8) Red Blood Count 4.34 M/UL (4.70-6.10) Hemoglobin 12.3 G/DL (14.2-18.0) Hematocrit 38.3 % (42.0-52.0) Mean Corpuscular Volume 88 FL (80-99) Mean Corpuscular Hemoglobin 28.4 PG (27.0-31.0) Mean Corpuscular Hemoglobin Concent 32.2 G/DL (32.0-36.0) Red Cell Distribution Width 13.0 % (11.6-14.8) Platelet Count 156 K/UL (150-450) Mean Platelet Volume 6.7 FL (6.5-10.1) Neutrophils (%) (Auto) 63.7 % (45.0-75.0) Lymphocytes (%) (Auto) 26.1 % (20.0-45.0) Monocytes (%) (Auto) 6.9 % (1.0-10.0) Eosinophils (%) (Auto) 1.9 % (0.0-3.0) Basophils (%) (Auto) 1.4 % (0.0-2.0) Urine Color Pale yellow Urine Appearance Clear Urine pH 7 (4.5-8.0) Urine Specific [place] 1.005 (1.005-1.035) Urine Protein Negative (NEGATIVE) Urine Glucose (UA) Negative (NEGATIVE) Urine Ketones Negative (NEGATIVE) Urine Blood 3+ (NEGATIVE) Urine Nitrite Negative (NEGATIVE) Urine Bilirubin Negative (NEGATIVE) Urine Urobilinogen Normal MG/DL (0.0-1.0) Urine Leukocyte Esterase Negative (NEGATIVE) Urine RBC 5-10 /HPF (0 - 0) Urine WBC 0 /HPF (0 - 0) Urine Squamous Epithelial Cells Occasional /LPF Urine Bacteria None /HPF (NONE) Sodium Level 141 MMOL/L (136-145) Potassium Level 4.1 MMOL/L (3.5-5.1) Chloride Level 104 MMOL/L (98-107) Carbon Dioxide Level 31 MMOL/L (21-32) Anion Gap 6 mmol/L (5-15) Blood Urea Nitrogen 15 mg/dL (7-18) Creatinine 1.0 MG/DL (0.55-1.30) Estimat Glomerular Filtration Rate mL/min (>60) Glucose Level 124 MG/DL (74-106) Lactic Acid Level 1.00 mmol/L (0.4-2.0) Calcium Level 9.2 MG/DL (8.5-10.1) Total Bilirubin 0.3 MG/DL (0.2-1.0) Aspartate Amino Transf (AST/SGOT) 24 U/L (15-37) Alanine Aminotransferase (ALT/SGPT) 25 U/L (12-78) Alkaline Phosphatase 84 U/L (46-116) Total Creatine Kinase 75 U/L (26-308) Creatine Kinase MB 1.3 NG/ML (0.0-3.6) Creatine Kinase MB Relative Index 1.7 Troponin I 0.000 ng/mL (0.000-0.056) Total Protein 7.6 G/DL (6.4-8.2) Albumin 3.6 G/DL (3.4-5.0) Globulin 4.0 g/dL Albumin/Globulin Ratio 0.9 (1.0-2.7) EKG Diagnostic Results Rate: normal Rhythm: NSR ST Segments: no acute changes Last Vital Signs Date Time Temp Pulse Resp B/P (MAP) Pulse Ox O2 Delivery O2 Flow Rate FiO2 11/17/18 16:55 98.1 95 16 119/75 96 Room Air Status: unchanged Disposition: ADMITTED INPATIENT Condition: Stable Louis Bourgeois MD Nov 17, 2018 17:48
[2018-11-17] MEDS ORDERED: CYCLOBENZAPRINE10 MG ORAL (18:31)
--- NOTE | 2018-11-17 19:09 | NUR ---
HAND-OFF: Report given to TERESA Marcelino.
--- NOTE | 2018-11-17 19:18 | NUR ---
ED Nurse Note: RECEIVED PATIENT FROM TERESA PAGAN. PATIENT SLEEPING COMFORTABLY IN NAD. VSS. SKIN INTACT.
[2018-11-17 19:25] VITALS: BP 128/72
[2018-11-17 22:55] VITALS: BP 137/81
--- NOTE | 2018-11-17 23:00 | NUR ---
TRANSFER TO FLOOR: Patient transferred to TELEMETRY OBS 214-2 as ordered, per MD FRANK. Report given to TERESA MIRZA. PATIENT IN STABLE CONDITION. BELONGINGS LIST ENDORSED TO RECEIVING RN
[2018-11-18] VITALS: BP 150/90
--- NOTE | 2018-11-18 | NUR ---
NURSE NOTES: Pt arrived on unit from ER. Got report from Soledad RN from ER. Initial assessment done. Pt is nonverbal and unable to answer any of my questions. Pt opens eyes spontaneously and is able to move in bed. Pts upper extremity is contracted. No skin issues noted. VS T:98 HR:93 R:20 O2:95% on room air BP:150/90. Pt is normal sinus rhythm. No s/s of distress or discomfort noted. Pt resting in bed comfortably. Bed in low and locked position, call light within reach, bedside table within reach. Continue to monitor. Orders given and placed by and Dr. Taylor.
--- NOTE | 2018-11-18 03:00 | Consultation ---
DATE OF CONSULTATION: 11/17/2018 CARDIOLOGY CONSULTATION CONSULTING PHYSICIAN: Дмитрий Taylor M.D. REQUESTING PHYSICIAN: Nick Sanders M.D. REASON FOR CONSULTATION: Cardiology evaluation for syncopal episode. HISTORY OF PRESENT ILLNESS: This is a 78-year-old male, who was found unconsciously face down by family members earlier today. His son initiated CPR and consciousness was regained. The patient apparently recently started Flexeril and also takes the med. The patient was hospitalized here in 2017 with an episode of syncope associated with hypothermia and bradycardia. He has an underlying dementia. He is limited in verbal communication and ambulates with assistance and a walker usually. PAST MEDICAL HISTORY: 1. Dementia. 2. Cerebrovascular disease. 3. Prostatic hypertrophy. 4. Osteoarthritis. 5. Hyperlipidemia. MEDICATIONS: Reviewed. ALLERGIES: None. SOCIAL HISTORY: Negative for smoking or alcohol use. REVIEW OF SYSTEMS: Otherwise not obtainable from the patient. PHYSICAL EXAMINATION: GENERAL: An ill-appearing elderly male. VITAL SIGNS: Blood pressure 119/75, pulse 90, respirations 16, and afebrile. HEENT: Mild temporal wasting. Conjunctivae pink. Oropharynx clear. Mucous membranes moist. NECK: Supple. Jugular venous pressure normal. LUNGS: No carotid sinus hypersensitivity. CARDIAC: Regular rhythm and rate. Normal S1, S2 with a fourth heart sound. ABDOMEN: Soft. EXTREMITIES: He is nonverbal. He has some contractures. DIAGNOSTIC DATA: EKG revealed sinus rhythm with first-degree AV block, and no acute abnormalities. LABORATORY DATA: White count 8.1 and hemoglobin 12.3. Sodium 141, potassium 4.1, bicarb 31, BUN 15, creatinine 1, and glucose 124. Lactic acid 1. Troponin 0. Albumin 3.6. CT of the brain, no acute process. IMPRESSION: This is an elderly male with dementia, who had a witnessed syncopal episode due to the paucity of the subjective information from the patient. The differential is large and can include bradyarrhythmias, orthostasis, vasovagally mediated event due to hypovolemia, and possibly medication effect in the setting of underlying cerebrovascular disease. RECOMMENDATIONS: 1. Cardiac monitoring. 2. Hydration. 3. Hold Flexeril. 4. Check orthostatics. 5. We will follow with you during this hospital course. Дмитрий Velma Taylor DR: JULY JOB#: [id number] CC:
[2018-11-18 04:20] VITALS: BP 142/83
--- NOTE | 2018-11-18 07:20 | NUR ---
HAND-OFF: Report given to Tate MOORE. Endorsed plan of care.
--- NOTE | 2018-11-18 07:47 | NUR ---
NURSE NOTES: Received report from TERESA Abel. Patient in bed resting, no active s/s cardiac, respiratory distress noticed at this time. Patient AOx0, open eyes spontaneously, non-verbal response. Patient on room air, SR with HR 81. IV site on right 20G, asymptomatic, patent, intact, IV fluid running at prescribed rate. Bed in lowest position, side rails upx3, call light within reach, bed alarm on. Will continue to monitor.
[2018-11-18 07:56] LABS: BASOPHILS % (AUTO) 2.5 % (0.0-2.0); EOSINOPHILS % (AUTO) 2.6 % (0.0-3.0); HEMATOCRIT 34.2 % (42.0-52.0); HEMOGLOBIN 11.2 G/DL (14.2-18.0); LYMPHOCYTES % (AUTO) 18.5 % (20.0-45.0); MEAN CORPUSCULAR VOLUME 90 FL (80-99); MONOCYTES % (AUTO) 13.8 % (1.0-10.0); NEUTROPHILS % (AUTO) 62.6 % (45.0-75.0); PLATELET COUNT 154 K/UL (150-450); RED BLOOD COUNT 3.81 M/UL (4.70-6.10); RED CELL DISTRIBUTION WIDTH 12.9 % (11.6-14.8); WHITE BLOOD COUNT 6.8 K/UL (4.8-10.8)
[2018-11-18 08:00] VITALS: BP 157/53
[2018-11-18 08:33] LABS: ALANINE AMINOTRANSFERASE 22 U/L (12-78); ALBUMIN/GLOBULIN RATIO 0.8 (1.0-2.7); ALKALINE PHOSPHATASE 71 U/L (46-116); ANION GAP 7 mmol/L (5-15); ASPARTATE AMINO TRANSFERASE 20 U/L (15-37); BILIRUBIN,TOTAL 0.2 MG/DL (0.2-1.0); BLOOD UREA NITROGEN 15 mg/dL (7-18); CALCIUM 8.8 MG/DL (8.5-10.1); CARBON DIOXIDE 27 MMOL/L (21-32); CHLORIDE 107 MMOL/L (98-107); CREATININE 0.7 MG/DL (0.55-1.30); POTASSIUM 3.4 MMOL/L (3.5-5.1); SODIUM 141 MMOL/L (136-145)
[2018-11-18] MEDS: Atorvastatin 20mg tab ORAL SCH (09:26)
[2018-11-18] MEDS: Aspirin Baby 81mg ORAL SCH (09:27)
[2018-11-18] MEDS: Memantine 10mg tab ORAL SCH (09:27)
--- NOTE | 2018-11-18 10:56 | NUR ---
CASE MANAGEMENT:REVIEW 78 YR OLD MALE BIBA FROM HOME CC; SON FOUND PATIENT WITH HEAD DOWN ON TABLE AND NOT RESPONDING. CPR WAS INITIATED SI: SYNCOPE 98.1 90 16 119/75 96% ON RA GLUCOSE+124 TROPONIN(-) IS: 500CC NS BOLUS CT HEAD URINE REFLEX BLOOD CX : TO TELEMETRY PLAN: CARDIAC EVAL 2DECHO SWALLOW EVAL INTERQUAL CRITERIA MET
--- NOTE | 2018-11-18 11:10 | Diagnostic Imaging Report ---
Indications: Altered mental status Technique: Spiral acquisitions obtained through the brain. Angled axial and coronal 5 x 5 mm slices were reconstructed. Total dose length product 1421.83 mGycm. CTDI vol(s) 70.38 mGy. Dose reduction achieved using automated exposure control Comparison: 06/12/2017 Findings: Again demonstrated is marked age-related enlargement of the ventricles and extra-axial CSF spaces. There is periventricular deep white matter low-attenuation, consistent with chronic ischemic change. There is an old lacunar infarct in the right basal ganglia which although not acute is new since the prior study. No acute intracranial hemorrhage or edema, mass effect, nor midline shift. Visualized orbits and sinuses are unremarkable. Calvarium is intact. The mastoids are clear. Impression: Chronic and age-related changes, as described Old right basal ganglia lacunar infarct Negative for acute intracranial bleed or mass effect This agrees with the preliminary interpretation provided overnight by [facility] teleradiology service. The CT scanner at [facility] is accredited by the [employer] and the scans are performed using protocols designed to limit radiation exposure to as low as reasonably achievable to attain images of sufficient resolution adequate for diagnostic evaluation.
[2018-11-18 12:00] VITALS: BP 129/79
--- NOTE | 2018-11-18 12:43 | Diagnostic Imaging Report ---
Indication: Shortness of breath Technique: One view of the chest Comparison: 06/12/2017 Findings: No acute infiltrates, effusions, or congestion. Tortuous calcified aorta. Normal heart size. Upper mediastinum unremarkable. Degenerative changes of both shoulders are again noted. No significant interim change Impression: No acute process.
--- NOTE | 2018-11-18 13:24 | NUR ---
*-* INSURANCE *-* ALL CLINICALS AND REVIEWS HAVE BEEN FAXED TO: JAQUAN.PROSPER: ALIS P- [phone] f- [phone]
--- NOTE | 2018-11-18 14:30 | Consultation ---
DATE OF CONSULTATION: 11/18/2018 CONSULTING PHYSICIAN: Thomas Lala M.D. REFERRING PHYSICIAN: Nick Sanders M.D. REASON FOR CONSULTATION: 1. Dehydration. 2. Syncope. HISTORY OF PRESENT ILLNESS: The patient is a 78-year-old male, who was found after syncopal episode, unconscious. The patient was brought in by family members early in the day prior to transportation over to the emergency room. His son had initiated CPR and the patient then regained consciousness. Apparently, the patient had recently started taking Flexeril. He had been previously hospitalized for another syncopal episode that had been associated with hypothermia and bradycardia. He does have underlying dementia. The patient is currently somnolent, but arousable. Not overtly conversing. PAST MEDICAL HISTORY: 1. Dementia. 2. Cerebrovascular disease. 3. BPH. 4. Hypertension 5. Hyperlipidemia. ALLERGIES: No known drug allergies. CURRENT MEDICATIONS: Reviewed. SOCIAL HISTORY: No tobacco, alcohol, or illicit drug use. REVIEW OF SYSTEMS: Cannot obtain as the patient is somnolent, but arousable, not conversing. PHYSICAL EXAMINATION: VITAL SIGNS: Blood pressure 142/83, respiratory rate 20, pulse 81, temperature 97.9, and 97% oxygen saturation on room air. GENERAL: The patient is somnolent, but arousable, not very conversant. HEENT: Extraocular muscles intact. No lymphadenopathy. Oropharyngeal mucosa is clear and dry. CARDIOVASCULAR: S1, S2. No rubs or gallops. PULMONARY: Clear to auscultation bilaterally. No rales, rhonchi, or wheezes. ABDOMEN: Nondistended and nontender. EXTREMITIES: No edema noted. LABORATORY DATA: Laboratories dated November 17, 2018, sodium 141, potassium 4.1, glucose 124, creatinine 1, BUN 15, bicarb 31, chloride 104, CPK 75. White cell count 6.8, hemoglobin 11.2, and platelet count 154. ASSESSMENT AND PLAN: 1. Volume depletion with dehydration. At this time, we will continue isotonic solution for hydration. Creatinine currently stable. Continue to monitor and avoid any nephrotoxins if possible. 2. Syncopal episode. Cardiology has been consulted for evaluation of possible underlying coronary/cardiac issues. 3. Hyperlipidemia. Continue Lipitor. 4. Hypertension. At this time, the patient's blood pressure has been variable between 137 to 150. We will continue to monitor and add antihypertensive medication if deemed appropriate. We will also discuss with Cardiology. Thomas Lala MD DR: TANNER JOB#: [id number] CC: HALIMA
--- NOTE | 2018-11-18 15:45 | History and Physical Report ---
DATE OF ADMISSION: 11/17/2018 HISTORY OF PRESENT ILLNESS: This is a 78-year-old male who was found unconscious by family members. His son started CPR. The patient subsequently woke up. The patient reportedly has been recently started to take Flexeril. The patient had previous syncope many years ago. He has dementia and is unable to communicate. Apparently, he walks with assistance with a walker. PAST HISTORY: Previous CVA, prostate hypertrophy, osteoarthrosis, hyperlipidemia, and dementia. HOME MEDICATIONS: Reviewed and reconciled in the chart. ALLERGIES: None. SOCIAL HISTORY: No alcohol or tobacco usage. REVIEW OF SYSTEMS: Unobtainable. PHYSICAL EXAMINATION: GENERAL: Reveals elderly male, noncommunicative. VITAL SIGNS: Blood pressure is 119/70, heart rate 74, respirations 18, he is afebrile. LUNGS: Clear breath sounds bilaterally. ABDOMEN: Soft. EXTREMITIES: There is no edema. NEUROLOGIC: Unable to elicit because of poor cooperation. The patient has bilateral contractures. DIAGNOSTIC AND LABORATORY DATA: EKG shows first-degree AV block. Laboratory data is unremarkable. Troponin negative. Albumin is 3.6. CT brain negative. IMPRESSION: 1. Dementia. 2. Syncopal episode. 3. Apparent cardiorespiratory arrest, status post CPR. DISCUSSION: We will obtain Cardiology and Renal consultations. IV hydration. Cardiac monitoring. Check troponin. Discontinue nonessential medications. We will follow carefully. Nick Sanders M.D. DR: HAILEE JOB#: [id number] CC:
[2018-11-18 16:00] VITALS: BP 111/75
--- NOTE | 2018-11-18 19:20 | NUR ---
NURSE NOTES: Received pt from TERESA Ybarra. Pt awake and resting in bed. IV site is intact. Call light within reach, bed in lowest position. Will continue with plan of care.
[2018-11-18 20:00] VITALS: BP 161/96
--- NOTE | 2018-11-18 20:17 | NUR ---
HAND-OFF: Report given to TERESA Smith.
--- NOTE | 2018-11-18 22:46 | NUR ---
NURSE NOTES: Contacted Dr. Taylor in regards to Pt Observation status. Told by Dr. Taylor to continue observation status until doctor sees pt in the morning. Notified charge nurse.
[2018-11-19] VITALS: BP 165/105
[2018-11-19 04:00] VITALS: BP 151/96
--- NOTE | 2018-11-19 04:15 | Progress Note ---
DATE: 11/18/2018 CARDIOLOGY PROGRESS NOTE SUBJECTIVE: The patient is nonverbal, but arousable and interactive. Monitored rhythm remains sinus with no ectopics, pauses, or arrhythmias. OBJECTIVE: VITAL SIGNS: Blood pressure 111/75 to 161/96, heart rate 75 to 80, and afebrile. LUNGS: Clear. CARDIAC: Regular. Normal S1, S2 with a 1/6 systolic apical murmur. ABDOMEN: Soft. EXTREMITIES: No edema. IMPRESSION: 1. Low clinical suspicion for cardiopulmonary arrest. 2. Syncopal episode possibly due to vasovagally mediated event versus bradyarrhythmia. 3. Advanced age with dementia. PLAN: 1. Continue cardiac monitoring. 2. Avoid tight blood pressure control. 3. Check orthostatics. 4. May consider outpatient event recorder should there be evidence of recurring alterations from his baseline level of function. Дмитрий Taylor M.D. DR: JULY JOB#: [id number] CC:
--- NOTE | 2018-11-19 07:35 | NUR ---
HAND-OFF: Report given to TERESA Beavers. Pt in no acute distress. Endorsed plan of care.
--- NOTE | 2018-11-19 07:38 | NUR ---
NURSE NOTES: Received patient from TERESA Smith in bed having breakfast. Patient is alert and oriented x 1 to name . No s/s of pain noted. No s/s of respiratory or cardiac distress noted. Bed is in lowest position, brakes engaged for safety. air sampling and monitoring in place, Call light is within reach. Will continue with the plan of care.
[2018-11-19 08:00] VITALS: BP 155/103
[2018-11-19 08:27] LABS: ANION GAP 7 mmol/L (5-15); BLOOD UREA NITROGEN 11 mg/dL (7-18); CALCIUM 8.5 MG/DL (8.5-10.1); CARBON DIOXIDE 26 MMOL/L (21-32); CHLORIDE 106 MMOL/L (98-107); CREATININE 0.6 MG/DL (0.55-1.30); POTASSIUM 3.6 MMOL/L (3.5-5.1); SODIUM 139 MMOL/L (136-145)
[2018-11-19] MEDS: Memantine 10mg tab ORAL SCH (08:44)
[2018-11-19] MEDS: Atorvastatin 20mg tab ORAL SCH (08:44)
[2018-11-19] MEDS: Aspirin Baby 81mg ORAL SCH (08:44)
--- NOTE | 2018-11-19 09:24 | Nephrology Progress Note ---
Assessment/Plan Assessment/Plan: A/P 1) Hypokalemia- replaced and corrected 2) Dehydration- continue IVFs for now - swallow evaluation ordered 3) Syncope- per cardiology evaluation 4) Dementia- at baseline. Subjective Date patient seen: Nov 19, 2018 Time patient seen: 09:22 ROS Limited/Unobtainable: Yes Allergies: Coded Allergies: No Known Allergies (Unverified , 08/11/15) All Systems: reviewed and negative except above Subjective Patient in no overt distress this morning. More awake than yesterday Objective Last 24 Hour Vital Signs Date Time Temp Pulse Resp B/P (MAP) Pulse Ox O2 Delivery O2 Flow Rate FiO2 11/19/18 08:00 80 11/19/18 08:00 97.4 83 20 155/103 (120) 98 11/19/18 04:00 97.9 76 16 151/96 (114) 99 11/19/18 04:00 76 11/19/18 00:00 76 11/19/18 00:00 98.3 76 18 165/105 (125) 99 11/18/18 21:00 Room Air 11/18/18 21:00 77 74 11/18/18 20:00 98.0 76 18 161/96 (117) 100 11/18/18 20:00 76 11/18/18 16:00 97.3 75 18 111/75 (87) 97 75 11/18/18 16:00 73 11/18/18 12:00 85 11/18/18 12:00 97.5 80 18 129/79 (96) 95 80 Intake and Output 11/18/18 11/19/18 18:59 06:59 Intake Total 540 ml Balance 540 ml Intake Oral 540 ml # Voids 3 2 # Bowel Movements 1 Laboratory Tests 11/19/18 05:45: Sodium Level 139, Potassium Level 3.6, Chloride Level 106, Carbon Dioxide Level 26, Anion Gap 7, Blood Urea Nitrogen 11, Creatinine 0.6, Estimat Glomerular Filtration Rate , Glucose Level 77, Calcium Level 8.5, Magnesium Level 1.8 Height (Feet): 6 Height (Inches): 0.00 Weight (Pounds): 170 General Appearance: no apparent distress EENT: normal ENT inspection Neck: normal alignment, supple Cardiovascular: normal rate, regular rhythm Respiratory/Chest: lungs clear, normal breath sounds Abdomen: non tender, soft Edema: no edema noted Arm (L), no edema noted Arm (R), no edema noted Leg (L), no edema noted Leg (R), no edema noted Pedal (L), no edema noted Pedal (R), no edema noted Generalized Thomas Lala MD Nov 19, 2018 09:24
--- NOTE | 2018-11-19 09:40 | NUR ---
CASE MANAGEMENT:REVIEW 11/19/18 SI: SYNCOPE. DEHYDRATION. HYPOKALEMIA ADVANCED AGE DEMENTIA 97.4 83 20 155/103 98% ON RA IS: IVF@75/HR ASA PO QD LIPITOR PO QD NAMENDA PO QD : TELEMETRY STATUS DCP: FROM HOME
--- NOTE | 2018-11-19 09:47 | NUR ---
[facility] THERAPY NOTES: REFERRED BY DR CANTU (PRIMARY IS DR MARIE) FOR SWALLOW EVALUATION, SEE REPORT IN [facility] ACTIVITY SECTION. DYSPHAGIA RISK FACTORS FOR THIS 78 Y.O.M.: ACUTE SYNCOPE, SON HAD TO COMPLETE CPR ON 11/17 DOA AND PATIENT WOKE UP. LUNGS ARE CLEAR AND NO NEW EVENTS ON CT (HEAD) SCAN 11/17/18. H/O OLD RIGHT BASAL GANGLIA LACUNAR INFARCTS, MILD-MOD OROPHARYNGEAL DYSPHAGIA, ALZHEIMER'S DZ DEMENTIA, RESP D/O AND ASTHMA, PROSTATE CA, SEPSIS/UTI 10/2016 ADMISSION. NO POLST/AD REGARDING TUBE FEEDINGS IN CHART. FROM HOME ? DIET BUT ON SW[place] [facility] [place] PLACED ON A QUALITY OF [facility] (OK WITH PIECE OF TOAST). CURRENTLY ON A CARDIAC REGULAR TEXTURE DIET AND THIN LIQUIDS AND INTAKE SLOWER AND POOR TO FAIR (25/25/75/100%). HAS GOOD DENTITION. PER RN, NO OVERT ASP WITH CRUSHED MEDS AND APPLESAUCE. PATIENT IS ALERT BUT NOT VERBALIZING NEEDS. DID NOT FOLLOW COMMANDS AND ON ROOM AIR. INITIAL IMPRESSIONS: S/S OF AT LEAST A PERSISTENT MILD-MODERATE ORAL PREP AND OROPHARYNGEAL DYSPHAGIA WITH INCREASED TRANSIT TIMES IN ALL PHASES OF THE SWALLOW. DID NOT FOLLOW COUGH OR ORAL COMMANDS, LIPS LOOK SYMMETRICAL AT REST AND DID LOWER LIP APPEARS TO TREMOR. NO OVERT S/S OF ASPIRATION WITH PUREED TSP BUT HAS INCREASED ORAL PREP HE TENDS TO CHEW THE PUREED BOLUS UNNECESSARILY (POOR ORAL AWARENESS/SENSATION SEEN IN PATIENT'S WITH ALZ DZ). DOES NOT ALWAYS OPEN MOUTH TO ALLOW ORAL INSPECTION AND DID NEED 2 SWALLOWS FOR ORAL OR PHARYNGEAL OR BOTH RESIDUE. NO OVERT ASPIRATION THIN LIQUIDS VIA STRAW TRIALS - (JASPER SWALLOW PROTOCOL) NEEDED TO TAKE ONLY 2 SIPS AT A TIME (NOT SEQUENTIAL) AND ADMITTED TO COUGHING WITH THIN LIQUIDS AT TIMES AND PUTS HIM AT RISK FOR ASP. HAS HIGH RISK FOR SILENT ASP BUT LUNGS ARE CLEAR NOW. REFUSED MASTICATED SOLIDS TRIAL RECOMMENDATIONS: COMPLETED MOD BARIUM SWALLOW STUDY TO FURTHER ASSESS SWALLOW, DETERMINE SILENT ASP RISK/ETIOLOGY, AND ATTEMPT TRIAL TX TECHNIQUES. IF PO CONTINUES FOR QUALITY OF LIFE, DOWNGRADE TO CARDIAC MOIST PUREED AND NECTAR THICK LIQUIDS WITH POSTED ASP PRECAUTIONS AND 1 TO 1 FEEDING. SEND HIGH NARDA SUP AND COMPLETE CALORIE COUNT AND DIET TYPE REC PER RD DYSPHAGIA MANAGEMENT AND TX AND COG-COM EVAL AND TX FOR COM TIPS EDUCATED/TRAINED LINA (RN) IN POSTED ASP PRECAUTIONS. LEFT MESSAGE WITH MD AND D/W RN AND PATIENT (WHO IS CONFUSED)
--- NOTE | 2018-11-19 10:03 | Pulmonology Progress Note ---
Assessment/Plan Assessment/Plan IMPRESSION: 1. Dementia. 2. Syncopal episode. 3. Apparent cardiorespiratory arrest, status post CPR. DISCUSSION: Seen by Cardiology and Renal specialists. Cardiac monitoring. Check troponin. Discontinued nonessential medications. DC planning for home. Message left for son Subjective Interval Events: None new Constitutional: Reports: no symptoms HEENT: Repors: no symptoms Respiratory: Reports: no symptoms Cardiovascular: Reports: no symptoms Gastrointestinal/Abdominal: Reports: no symptoms Genitourinary: Reports: no symptoms Allergies: Coded Allergies: No Known Allergies (Unverified , 08/11/15) Objective Last 24 Hour Vital Signs Date Time Temp Pulse Resp B/P (MAP) Pulse Ox O2 Delivery O2 Flow Rate FiO2 11/19/18 08:00 80 11/19/18 08:00 97.4 83 20 155/103 (120) 98 11/19/18 04:00 97.9 76 16 151/96 (114) 99 11/19/18 04:00 76 11/19/18 00:00 76 11/19/18 00:00 98.3 76 18 165/105 (125) 99 11/18/18 21:00 Room Air 11/18/18 21:00 77 74 11/18/18 20:00 98.0 76 18 161/96 (117) 100 11/18/18 20:00 76 11/18/18 16:00 97.3 75 18 111/75 (87) 97 75 11/18/18 16:00 73 11/18/18 12:00 85 11/18/18 12:00 97.5 80 18 129/79 (96) 95 80 Intake and Output 11/18/18 11/19/18 18:59 06:59 Intake Total 540 ml Balance 540 ml Intake Oral 540 ml # Voids 3 2 # Bowel Movements 1 General Appearance: no acute distress HEENT: normocephalic Respiratory/Chest: chest wall non-tender, lungs clear Cardiovascular: normal peripheral pulses, normal rate Abdomen: normal bowel sounds Laboratory Tests 11/19/18 05:45: Sodium Level 139, Potassium Level 3.6, Chloride Level 106, Carbon Dioxide Level 26, Anion Gap 7, Blood Urea Nitrogen 11, Creatinine 0.6, Estimat Glomerular Filtration Rate , Glucose Level 77, Calcium Level 8.5, Magnesium Level 1.8 Current Medications Medications (Trade) Dose Ordered Sig/Hao Route PRN Reason Start Time Stop Time Status Last Admin Dose Admin Aspirin (ASA) 81 mg DAILY ORAL 11/18/18 09:00 12/18/18 08:59 11/19/18 08:44 Atorvastatin Calcium (Lipitor) 20 mg DAILY ORAL 11/18/18 09:00 12/18/18 08:59 11/19/18 08:44 Memantine (Namenda) 10 mg DAILY ORAL 11/18/18 09:00 12/18/18 08:59 11/19/18 08:44 Sodium Chloride 1,000 ml @ 75 mls/hr [id number] IV 11/18/18 00:45 12/18/18 00:44 11/19/18 05:40 Nick Sanders MD Nov 19, 2018 10:03
--- NOTE | 2018-11-19 11:30 | NUR ---
*-* INSURANCE *-* UPDATED CLINICALS AND REVIEWS HAVE BEEN FAXED TO: DEE: ALIS P- [phone] f- [phone]
[2018-11-19 12:00] VITALS: BP 140/83
--- NOTE | 2018-11-19 12:35 | NUR ---
NURSE NOTES: Patient is discharged home via gurney with ambulance personnel. spoke with son, Sina Ernandez about patient's discharged. marketing ambassador taken out, cleaned and given to screen making technician. IV taken out, no bleeding nor infiltration noted. All discharge protocols followed, patient is unable to sign discharge papers and belonging list. Patient is in stable condition.
--- NOTE | 2018-11-20 07:30 | Progress Note ---
DATE: 11/19/2018 CARDIOLOGY PROGRESS NOTE SUBJECTIVE: The patient is nonverbal, but responsive. He has noted apparent distress. Monitored rhythm has revealed sinus rhythm with no pauses of bradycardic episodes of significant. OBJECTIVE: VITAL SIGNS: Blood pressure 151/96, pulse 76, and respirations 16 earlier. Now, blood pressure 140/83. NECK: Supple. LUNGS: Clear. CARDIAC: Regular. Normal S1, S2. ABDOMEN: Soft. EXTREMITIES: No edema. IMPRESSION: 1. Advanced dementia. 2. Syncopal episode, etiology unclear. 3. No evidence of cardiopulmonary arrest. 4. Possible underlying sinus node disease. 5. Labile hypertension. PLAN: 1. Conservative management. 2. Avoid tight blood pressure control. 3. Consider Zio patch as an outpatient. 4. Outpatient follow up. Дмитрий Taylor M.D. DR: JULY JOB#: [id number] CC:
--- NOTE | 2018-11-21 01:00 | Cardiology Report ---
APPROVED REPORT EKG Measurement Heart [id number] Sinus rhythm with premature atrial complexes Possible Inferior infarct, age undetermined Cannot rule out Anterior infarct, age undetermined Abnormal ECG
--- NOTE | 2018-11-21 08:20 | Cardiology Report ---
APPROVED REPORT EXAM: Two-dimensional and M-mode echocardiogram with Doppler and color Doppler. INDICATION Syncope M-Mode DIMENSIONS IVSd1.0 (0.7-1.1cm)Left Atrium (MM)3.1 (1.6-4.0cm) LVDd2.7 (3.5-5.6cm)Aortic Root3.3 (2.0-3.7cm) PWd1.3 (0.7-1.1cm)Aortic Cusp Exc.1.6 (1.5-2.0cm) LVDs1.7 (2.5-4.0cm) PWs1.7 cm Normal left ventricular chamber size, systolic function and wall motion. Left ventricular ejection fraction estimated to be 65 %. Mild left ventricular hypertrophy with prominent basal septum. Anterior Echo-free space, may be due to pericardial fat or effusion. All other cardiac chamber sizes are within normal limits. Heavy focal aortic valve sclerosis with adequate cusp excursion. Thickened mitral valve leaflets with normal excursion. Moderate mitral annulus and aortic root calcification. Pulmonic valve not well visualized. Normal tricuspid valve structure. IVC measured 1.9 cm without physiologic collapse suggestive of mildly increased RA pressure. A color flow and spectral Doppler study was performed and revealed: Mild aortic regurgitation. Trace mitral regurgitation. Mitral diastolic velocities suggest reduced left ventricular relaxation c/w mild LV diastolic dysfunction (Grade I). Trace tricuspid regurgitation. Tricuspid systolic velocities suggests peak right ventricular systolic pressure of 18 mmHg.
--- NOTE | 2018-11-28 12:56 | Discharge Summary ---
Discharge Summary Discharge Summary _ DATE OF ADMISSION: 11/17/2018 DATE OF DISCHARGE: 11/19/2018 DISCHARGED BY: Dr. Erick Sanders CONSULTANTS: Dr. Дмитрий Lala BRIEF HOSPITAL COURSE: Patient is a 78-year-old male, who was found unconscious by family members. Son started CPR. The patient subsequently woke up. The patient reportedly had been recently started on the Flexeril. He had previous syncope many years ago. He had dementia and was unable to communicate. He walks with a walker with assistance. He has medical history significant for prior CVA, prostate hypertrophy, osteoarthritis, hyperlipidemia and dementia. On evaluation at ED, vital signs were stable. Blood work did not show any leukocytosis. Hemoglobin 12, hematocrit 38. Electrolytes were normal. Troponin was negative. EKG showed normal sinus rhythm with a rate of [address] or T wave changes. CT of the head read by radiologist showed atrophic changes without evidence of acute intracranial hemorrhage. There was old right basal ganglia lacunar infarct. Patient was then admitted for evaluation of syncope. He underwent cardiac evaluation. Patient had a witnessed syncopal episode. But due to paucity of subjective information from the patient, differential includes bradycardia arrhythmia, orthostasis, basic vagally mediated event due to hypovolemia and possibly occasional effect in the setting of underlying cerebrovascular disease. Flexeril was placed on hold. Orthostatic vitals were monitored. He was placed on security monitor. He was given IV hydration. Monitored rhythm remained sinus with no ectopies, pauses or arrhythmia. He was recommended may consider an outpatient event recorder (Zio patch). Avoid tight blood pressure control. He was given potassium supplements. Cardiac enzymes were negative. Blood culture was negative. Echocardiogram showed EF 65%. Speech evaluation was done. Patient was recommended cardiac moist pured and nectar thick liquid. Strict aspiration precaution and one to one feed. He was eventually discharged home. FINAL DIAGNOSES: Syncopal episode, etiology unknown Advanced dementia Current cardiorespiratory arrest, status post CPR Dehydration Hypokalemia DISPOSITION: Home with home health. DISCHARGE MEDICATIONS: Refer to Discharge Medication List. DC Flexeril. DISCHARGE INSTRUCTIONS: Follow-up in a week. I have been assigned to complete a discharge summary on this account, I was not involved with the patient's management. Lana Velasquez NP November 28, 2018 12:56
== END 2018-11-19 12:32 | disposition home or self-care (01) ==
LOC: EDBD 16:52 → EMR 17:20 → 2E 20:13 → EDBEDREQ 20:49
DX: I46.9 Cardiac arrest, cause unspecified (principal); E86.0 Dehydration; I49.8 Other specified cardiac arrhythmias; R55 Syncope and collapse; Z86.73 Personal history of transient ischemic attack (TIA), and cerebral infarction without residual deficits; I10 Essential (primary) hypertension; E78.5 Hyperlipidemia, unspecified; Z79.899 Other long term (current) drug therapy; M19.90 Unspecified osteoarthritis, unspecified site; I44.0 Atrioventricular block, first degree; G30.9 Alzheimer's disease, unspecified; F02.80 Dementia in other diseases classified elsewhere, unspecified severity, without behavioral disturbance, psychotic disturbance, mood disturbance, and anxiety; R94.31 Abnormal electrocardiogram [ECG] [EKG]; E87.6 Hypokalemia
CPT/HCPCS: 36415 ×3; 70450; 71045; 80048; 80053 ×2; 81003; 82550; 82553; 82607; 82746; 83605; 83735; 83880; 84443; 84484 ×2; 85025 ×2; 86850; 86900; 86901; 87040; 92526; 92610; 93005; 93306; 99284; G0378 ×2; J8499

== ENCOUNTER 2019-02-08 17:03 | Emergency (ER) | payer MEDICARE, OTHER ==
[~2019-02-08] VITALS: Ht 185.4 cm; Wt 49.9 kg
[2019-02-08 17:03] VITALS: BP 114/71
[~2019-02-08 17:03] MED LIST changes: +CYCLOBENZAPRIN7.5 MG ORAL; +CYCLOBENZAPRINE10 MG ORAL
--- NOTE | 2019-02-08 17:09 | NUR ---
ED Nurse Note: PT FROM HOME CAME IN DUE TO ALOC. PT WAS SUDDENLY BECAME UNRESPONSIVE WHILE EATING. BP LOW 51/31. NS 250ML GIVEN AND INCREASED TO 110/60. AWAKE BUT WITH FLAT AFFECT AND UNDER HOSPICE CARE. NO SOB. HX OF ALZHEIMERS.
--- NOTE | 2019-02-08 17:17 | Emergency Room Report ---
History of Present Illness General Chief Complaint: Altered Level of Consciousness Source: Family Member, EMS, Caregiver Present Illness HPI The patient presents via EMS. Apparently is altered today. They found him with low blood pressure and gave him a fluid bolus. Blood pressure was improved after this. The patient is demented and unable to give medical history. According to paramedics he is a full CODE STATUS. According to the son he aggressively tries to ensure adequate oral intake. He states it is difficult to keep up with things. The son denies fever, vomiting, diarrhea, dysuria. The patient has advanced dementia. Admitted May 2017 for syncope with slight autumn and leukocytosis. Allergies: Coded Allergies: No Known Allergies (Unverified , 08/11/15) Patient History Limited by: medical condition Past Medical History: see triage record, old chart reviewed Social History: Denies: smoking, alcohol use, drug use Social History Narrative Patient cared for at home by son Reviewed Nursing Documentation: PMH: Agreed; PSxH: Agreed Nursing Documentation-PMH Past Medical History: No History, Except For Hx Cardiac Problems: No Hx Asthma: Yes Hx Cancer: No Hx Gastrointestinal Problems: No Hx Neurological Problems: Yes Hx Dementia: Yes Hx Alzheimer's Disease: Yes Review of Systems All Other Systems: limited Physical Exam Vital Signs Date Time Temp Pulse Resp B/P (MAP) Pulse Ox O2 Delivery O2 Flow Rate FiO2 02/08/19 16:59 98.1 80 18 110/60 (77) 98 Room Air Sp02 EP Interpretation: reviewed, normal General Appearance: no apparent distress, thin, other - Minimally responsive, Chronically Ill Head: normocephalic, atraumatic Eyes: bilateral eye normal inspection ENT: dry mucus membranes Neck: supple Respiratory: lungs clear, normal breath sounds Cardiovascular #1: regular rate, rhythm Cardiovascular #2: 2+ radial (R) Gastrointestinal: normal inspection, normal bowel sounds, non tender, no mass, non-distended, scaphoid Musculoskeletal: back normal, other - Contractures all extremities Neurologic: responsive - Minimally, DTRs symmetric - Hyperreflexic, motor weakness - Extremities, Babinski, other - Suppressive aphasia Psychiatric: other - Months to painful stimuli Skin: pallor, other - Sallow Medical Decision Making Diagnostic Impression: Primary Impression: Transient hypotension Additional Impressions: Altered level of consciousness Dehydration Dementia Qualified Codes: F03.90 - Unspecified dementia without behavioral disturbance Contractures ER Course Patient presents with altered level of consciousness and hypotension. Differential includes acute myocardial infarction, sepsis, embolus, dehydration amongst others. Evaluation will be with EKG, chest x-ray and labs including blood cultures and lactate. The patient will be treated with IV hydration. The patient is placed on a surveillance monitor. Son states mentation is improved after fluids. He states patient is at his baseline. EKG without injury. Chest x-ray no infiltrates. Labs with minimally elevated white count. Electrolytes with elevated BUN. Because no source of infection is found antibiotics are not given. The patient is improved with fluids. However due to the degree of hypotension the patient needs at least observation in telemetry bed. The patient was presented to Dr. Ocampo and also Dr. Buckley who accepts the patient at [facility]. Patient mentation greatly improved. Tracking but not communicate. Transfer ALS. Laboratory Tests Test 02/08/19 17:30 White Blood Count 10.9 K/UL (4.8-10.8) H Red Blood Count 4.50 M/UL (4.70-6.10) L Hemoglobin 13.0 G/DL (14.2-18.0) L Hematocrit 41.5 % (42.0-52.0) L Mean Corpuscular Volume 92 FL (80-99) Mean Corpuscular Hemoglobin 28.9 PG (27.0-31.0) Mean Corpuscular Hemoglobin Concent 31.3 G/DL (32.0-36.0) L Red Cell Distribution Width 12.9 % (11.6-14.8) Platelet Count 184 K/UL (150-450) Mean Platelet Volume 5.9 FL (6.5-10.1) L Neutrophils (%) (Auto) 80.1 % (45.0-75.0) H Lymphocytes (%) (Auto) 12.7 % (20.0-45.0) L Monocytes (%) (Auto) 4.8 % (1.0-10.0) Eosinophils (%) (Auto) 1.5 % (0.0-3.0) Basophils (%) (Auto) 0.9 % (0.0-2.0) Prothrombin Time 10.6 SEC (9.30-11.50) Prothrombin Time INR 1.0 (0.9-1.1) PTT 22 SEC (23-33) L Urine Color Yellow Urine Appearance Clear Urine pH 6.5 (4.5-8.0) Urine Specific [place] 1.010 (1.005-1.035) Urine Protein 2+ (NEGATIVE) H Urine Glucose (UA) Negative (NEGATIVE) Urine Ketones Negative (NEGATIVE) Urine Blood 5+ (NEGATIVE) H Urine Nitrite Negative (NEGATIVE) Urine Bilirubin Negative (NEGATIVE) Urine Urobilinogen 1 MG/DL (0.0-1.0) H Urine Leukocyte Esterase 2+ (NEGATIVE) H Urine RBC 5-10 /HPF (0 - 0) H Urine WBC 2-4 /HPF (0 - 0) Urine Squamous Epithelial Cells None /LPF (NONE/OCC) Urine Bacteria Few /HPF (NONE) Sodium Level 142 MMOL/L (136-145) Potassium Level 4.1 MMOL/L (3.5-5.1) Chloride Level 106 MMOL/L (98-107) Carbon Dioxide Level 32 MMOL/L (21-32) Anion Gap 4 mmol/L (5-15) L Blood Urea Nitrogen 20 mg/dL (7-18) H Creatinine 1.0 MG/DL (0.55-1.30) Estimate Glomerular Filtration Rate mL/min (>60) Glucose Level 111 MG/DL (74-106) H Lactic Acid Level 1.20 mmol/L (0.4-2.0) Calcium Level 9.7 MG/DL (8.5-10.1) Magnesium Level 2.4 MG/DL (1.8-2.4) Total Bilirubin 0.3 MG/DL (0.2-1.0) Aspartate Amino Transferase (AST) 23 U/L (15-37) Alanine Aminotransferase (ALT) 18 U/L (12-78) Alkaline Phosphatase 87 U/L (46-116) Total Creatine Kinase 63 U/L (26-308) Troponin I 0.001 ng/mL (0.000-0.056) Pro-B-Type Natriuretic Peptide 322 pg/mL (0-125) H Total Protein 7.9 G/DL (6.4-8.2) Albumin 3.7 G/DL (3.4-5.0) Globulin 4.2 g/dL Albumin/Globulin Ratio 0.9 (1.0-2.7) L Lipase 143 U/L (73-393) EKG Diagnostic Results Rate: normal Rhythm: NSR ST Segments: no acute changes - NSSTTW changes Rhythm Strip Diag. Results EP Interpretation: yes Rhythm: NSR, no PVC's, no ectopy Chest X-Ray Diagnostic Results Chest X-Ray Diagnostic Results : Chest X-Ray Ordered: Yes # of Views/Limited/Complete: 1 View Indication: Other EP Interpretation: Yes Interpretation: no consolidation, no effusion, no pneumothorax Impression: No acute disease Electronically Signed by: Electronically signed by Дмитрий Woodward MD Last Vital Signs Date Time Temp Pulse Resp B/P (MAP) Pulse Ox O2 Delivery O2 Flow Rate FiO2 02/08/19 22:16 97.9 82 15 156/89 100 Room Air Status: improved Disposition: XFER SHT-TRM HOSP Condition: Serious Дмитрий Woodward MD Feb 08, 2019 17:17
[2019-02-08 17:56] LABS: APPEARANCE,URINE CLEAR; BILIRUBIN, URINE NEGATIVE (NEGATIVE); GLUCOSE, URINE (UA) NEGATIVE (NEGATIVE); KETONES,URINE NEGATIVE (NEGATIVE); LEUKOCYTE ESTERASE ,URINE 2+ (NEGATIVE); NITRITE,URINE NEGATIVE (NEGATIVE); PH,URINE 6.5 (4.5-8.0); PROTEIN,URINE 2+ (NEGATIVE); UROBILINOGEN,URINE 1 MG/DL (0.0-1.0)
[2019-02-08 17:57] LABS: COLOR,URINE YELLOW
[2019-02-08 17:58] LABS: BASOPHILS % (AUTO) 0.9 % (0.0-2.0); EOSINOPHILS % (AUTO) 1.5 % (0.0-3.0); HEMATOCRIT 41.5 % (42.0-52.0); LYMPHOCYTES % (AUTO) 12.7 % (20.0-45.0); MEAN CORPUSCULAR VOLUME 92 FL (80-99); MONOCYTES % (AUTO) 4.8 % (1.0-10.0); NEUTROPHILS % (AUTO) 80.1 % (45.0-75.0); PLATELET COUNT 184 K/UL (150-450); RED CELL DISTRIBUTION WIDTH 12.9 % (11.6-14.8); WHITE BLOOD COUNT 10.9 K/UL (4.8-10.8)
--- NOTE | 2019-02-08 18:00 | NUR ---
ED Nurse Note: SON AWARE OF HOSPITAL ADMISSION.
[2019-02-08 18:10] LABS: ANION GAP 4 mmol/L (5-15); BLOOD UREA NITROGEN 20 mg/dL (7-18); CALCIUM 9.7 MG/DL (8.5-10.1); CARBON DIOXIDE 32 MMOL/L (21-32); CHLORIDE 106 MMOL/L (98-107); POTASSIUM 4.1 MMOL/L (3.5-5.1); SODIUM 142 MMOL/L (136-145)
[2019-02-08 18:20] LABS: ALANINE AMINOTRANSFERASE 18 U/L (12-78); ALBUMIN 3.7 G/DL (3.4-5.0); ALBUMIN/GLOBULIN RATIO 0.9 (1.0-2.7); ALKALINE PHOSPHATASE 87 U/L (46-116); ASPARTATE AMINO TRANSFERASE 23 U/L (15-37); BILIRUBIN,TOTAL 0.3 MG/DL (0.2-1.0); CREATINE KINASE 63 U/L (26-308)
[2019-02-08] MEDS ORDERED: UNOBMED (18:22)
[2019-02-08 18:47] VITALS: BP 134/77
--- NOTE | 2019-02-08 18:48 | NUR ---
ED Nurse Note: PT RESTING ON BED WITH NON LABORED BREATHING. VSS.
--- NOTE | 2019-02-08 19:20 | NUR ---
Face sheet, MD dictation, clinicals and EKG faxed to Jud at [facility] at [phone] as requested.
--- NOTE | 2019-02-08 21:30 | NUR ---
Pts son called and has asked the nurse to call the son once transfer info has been obtained with more info Sina Ernandez JR [phone]
[2019-02-08 22:16] VITALS: BP 156/89
--- NOTE | 2019-02-09 11:41 | Diagnostic Imaging Report ---
Indication: Dyspnea Comparison: 11/17/2018 A single view chest radiograph was obtained. Findings: No definite infiltrate or pulmonary vascular congestion identified. The heart is normal in size. The aorta is mildly enlarged consistent with atherosclerotic vascular disease. The bones are osteopenic. Impression: No acute disease
--- NOTE | 2019-02-10 20:32 | Cardiology Report ---
APPROVED REPORT EKG Measurement Heart [id number] Normal sinus rhythm Cannot rule out Inferior infarct, age undetermined Abnormal ECG
== END 2019-02-08 22:16 | disposition short-term general hospital (02) ==
LOC: EDBD 17:03 → EMR 18:51
DX: I95.9 Hypotension, unspecified (principal); R41.82 Altered mental status, unspecified; E86.0 Dehydration; F03.90 Unspecified dementia, unspecified severity, without behavioral disturbance, psychotic disturbance, mood disturbance, and anxiety; G30.9 Alzheimer's disease, unspecified; F02.80 Dementia in other diseases classified elsewhere, unspecified severity, without behavioral disturbance, psychotic disturbance, mood disturbance, and anxiety
CPT/HCPCS: 36415; 71045; 80053; 81003; 82550; 82962; 83605; 83690; 83735; 83880; 84484; 85025; 85610; 85730; 87040; 93005; 96360; 99284

== ENCOUNTER 2019-07-07 15:56 | Inpatient (IN) | payer MEDICARE, MEDICAID ==
[~2019-07-07] VITALS: Ht 172.7 cm; Wt 59.8 kg
[~2019-07-07 15:56] MED LIST changes: +ACYCLOVIR800 MG ORAL; +POLYETHYLENE GL17 GM ORAL
[2019-07-07 16:00] VITALS: BP 148/83
--- NOTE | 2019-07-07 16:00 | NUR ---
ED Nurse Note: pt came from with ra 13 d/t fall from home. ems states that pt was on toilet and son found pt on the floor. no visible head trauma or deformities on body.
--- NOTE | 2019-07-07 16:10 | NUR ---
ED Nurse Note: per ems bs was 105
--- NOTE | 2019-07-07 16:21 | Emergency Room Report ---
History of Present Illness General Chief Complaint: Altered Level of Consciousness Source: EMS Present Illness HPI Patient presents by paramedics with main report of increased weakness Over the past 24 hours the patient has been more weak than usual reports of increased sluggishness Patient himself has underlying dementia He is not able to provide appropriate medical history or appropriate complaints There was no reports of fevers no reports of vomiting or diarrhea patient has been taking less oral intake than usual Allergies: Coded Allergies: No Known Allergies (Unverified , 08/11/15) Patient History Limited by: medical condition Past Medical History: see triage record Reviewed Nursing Documentation: PMH: Agreed; PSxH: Agreed Nursing Documentation-PMH Hx Cardiac Problems: No Hx Asthma: Yes Hx Cancer: No Hx Gastrointestinal Problems: No Hx Neurological Problems: Yes - Dementia Hx Dementia: Yes Hx Alzheimer's Disease: Yes Review of Systems All Other Systems: limited - Other than the ones mentioned in the history of present illness all others are reviewed however they do stay limited due to the patient's mental status Physical Exam Vital Signs Date Time Temp Pulse Resp B/P (MAP) Pulse Ox O2 Delivery O2 Flow Rate FiO2 07/07/19 15:59 98.2 78 16 148/83 (104) 98 Room Air Sp02 EP Interpretation: reviewed, normal General Appearance: no apparent distress Head: normocephalic, atraumatic Eyes: bilateral eye EOMI ENT: EOM grossly intact, dry mucus membranes Neck: supple, no meningismus Respiratory: lungs clear, no respiratory distress, no retraction Cardiovascular #1: regular rate, rhythm Gastrointestinal: non tender, soft Genitourinary: no CVA tenderness Musculoskeletal: other - 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 Neurologic: other - Wake making eye contact Skin: no rash Lymphatic: no adenopathy Medical Decision Making Diagnostic Impression: Primary Impression: Syncope ER Course Patient is a fairly complex patient with multiple differential to consideration including but not limited to cardiac cardiopulmonary and vascular emergencies Other neurological neurosurgical process also entertained along with possible infectious process Imaging does not show any acute disease Patient did have traumatic injury and therefore this imaging was required in a syncopal patient Patient remains hemodynamically stable and admitted for further care Labs Test 07/07/19 16:15 07/07/19 16:25 07/07/19 17:25 07/08/19 06:50 Sodium Level 138 MMOL/L (136-145) 141 MMOL/L (136-145) Potassium Level 4.5 MMOL/L (3.5-5.1) 4.0 MMOL/L (3.5-5.1) Chloride Level 103 MMOL/L (98-107) 108 MMOL/L (98-107) Carbon Dioxide Level 29 MMOL/L (21-32) 27 MMOL/L (21-32) Anion Gap 6 mmol/L (5-15) 6 mmol/L (5-15) Blood Urea Nitrogen 18 mg/dL (7-18) 13 mg/dL (7-18) Creatinine 0.8 MG/DL (0.55-1.30) 0.8 MG/DL (0.55-1.30) Estimat Glomerular Filtration Rate mL/min (>60) mL/min (>60) Glucose Level 114 MG/DL (74-106) 84 MG/DL (74-106) Calcium Level 9.6 MG/DL (8.5-10.1) 9.2 MG/DL (8.5-10.1) Total Bilirubin 0.3 MG/DL (0.2-1.0) 0.4 MG/DL (0.2-1.0) Aspartate Amino Transf (AST/SGOT) 26 U/L (15-37) 27 U/L (15-37) Alanine Aminotransferase (ALT/SGPT) 30 U/L (12-78) 28 U/L (12-78) Alkaline Phosphatase 94 U/L (46-116) 86 U/L (46-116) Troponin I 0.013 ng/mL (0.000-0.056) Pro-B-Type Natriuretic Peptide 274 pg/mL (0-125) Total Protein 7.5 G/DL (6.4-8.2) 7.2 G/DL (6.4-8.2) Albumin 3.4 G/DL (3.4-5.0) 3.2 G/DL (3.4-5.0) Globulin 4.1 g/dL 4.0 g/dL Albumin/Globulin Ratio 0.8 (1.0-2.7) 0.8 (1.0-2.7) Lipase 127 U/L (73-393) White Blood Count 8.2 K/UL (4.8-10.8) Red Blood Count 3.99 M/UL (4.70-6.10) Hemoglobin 11.5 G/DL (14.2-18.0) Hematocrit 36.0 % (42.0-52.0) Mean Corpuscular Volume 90 FL (80-99) Mean Corpuscular Hemoglobin 28.8 PG (27.0-31.0) Mean Corpuscular Hemoglobin Concent 31.8 G/DL (32.0-36.0) Red Cell Distribution Width 12.9 % (11.6-14.8) Platelet Count 162 K/UL (150-450) Mean Platelet Volume 6.3 FL (6.5-10.1) Neutrophils (%) (Auto) 73.2 % (45.0-75.0) Lymphocytes (%) (Auto) 16.8 % (20.0-45.0) Monocytes (%) (Auto) 6.7 % (1.0-10.0) Eosinophils (%) (Auto) 2.6 % (0.0-3.0) Basophils (%) (Auto) 0.7 % (0.0-2.0) Urine Color Pale yellow Urine Appearance Clear Urine pH 7 (4.5-8.0) Urine Specific [place] 1.010 (1.005-1.035) Urine Protein Negative (NEGATIVE) Urine Glucose (UA) Negative (NEGATIVE) Urine Ketones Negative (NEGATIVE) Urine Blood 5+ (NEGATIVE) Urine Nitrite Negative (NEGATIVE) Urine Bilirubin Negative (NEGATIVE) Urine Urobilinogen Normal MG/DL (0.0-1.0) Urine Leukocyte Esterase Negative (NEGATIVE) Urine RBC Tntc /HPF (0 - 0) Urine WBC 0-2 /HPF (0 - 0) Urine Squamous Epithelial Cells Moderate /LPF (NONE/OCC) Urine Bacteria Few /HPF (NONE) Prostate Specific Antigen 0.89 ng/mL (0.13-4.0) Vitamin B12 Level 662 PG/ML (193-986) Folate 34.5 NG/ML (8.6-58.9) Thyroid Stimulating Hormone (TSH) 1.073 uiU/mL (0.358-3.740) EKG Diagnostic Results Rate: normal Rhythm: NSR ST Segments: no acute changes Rhythm Strip Diag. Results EP Interpretation: yes Rate: 66 Rhythm: NSR, no PVC's, no ectopy Chest X-Ray Diagnostic Results Chest X-Ray Diagnostic Results : Chest X-Ray Ordered: Yes # of Views/Limited/Complete: 1 View Indication: Chest Pain EP Interpretation: Yes Interpretation: no consolidation, no effusion, no pneumothorax Impression: No acute disease Electronically Signed by: Quintin Hilliard DO CT/MRI/US Diagnostic Results CT/MRI/US Diagnostic Results : Impression CT headImpression: Chronic and age-related changes as described Multiple lacunar infarcts Negative for acute intracranial bleed or mass effect Last Vital Signs Date Time Temp Pulse Resp B/P (MAP) Pulse Ox O2 Delivery O2 Flow Rate FiO2 07/07/19 15:59 98.2 78 16 148/83 (104) 98 Room Air Status: improved Disposition: PLACE IN OBSERVATION Condition: Improved Quintin Hilliard DO Jul 07, 2019 16:21
[2019-07-07 16:35] LABS: BASOPHILS % (AUTO) 0.7 % (0.0-2.0); EOSINOPHILS % (AUTO) 2.6 % (0.0-3.0); HEMOGLOBIN 11.5 G/DL (14.2-18.0); LYMPHOCYTES % (AUTO) 16.8 % (20.0-45.0); MEAN CORPUSCULAR VOLUME 90 FL (80-99); MONOCYTES % (AUTO) 6.7 % (1.0-10.0); NEUTROPHILS % (AUTO) 73.2 % (45.0-75.0); PLATELET COUNT 162 K/UL (150-450); RED BLOOD COUNT 3.99 M/UL (4.70-6.10); RED CELL DISTRIBUTION WIDTH 12.9 % (11.6-14.8); WHITE BLOOD COUNT 8.2 K/UL (4.8-10.8)
[2019-07-07 16:48] LABS: ANION GAP 6 mmol/L (5-15); BLOOD UREA NITROGEN 18 mg/dL (7-18); CALCIUM 9.6 MG/DL (8.5-10.1); CARBON DIOXIDE 29 MMOL/L (21-32); CHLORIDE 103 MMOL/L (98-107); CREATININE 0.8 MG/DL (0.55-1.30); POTASSIUM 4.5 MMOL/L (3.5-5.1); SODIUM 138 MMOL/L (136-145)
--- NOTE | 2019-07-07 16:55 | NUR ---
ED Nurse Note: PT TAKEN TO CT
[2019-07-07 17:04] LABS: ALANINE AMINOTRANSFERASE 30 U/L (12-78); ALBUMIN 3.4 G/DL (3.4-5.0); ALBUMIN/GLOBULIN RATIO 0.8 (1.0-2.7); ALKALINE PHOSPHATASE 94 U/L (46-116); ASPARTATE AMINO TRANSFERASE 26 U/L (15-37); BILIRUBIN,TOTAL 0.3 MG/DL (0.2-1.0)
--- NOTE | 2019-07-07 17:04 | Diagnostic Imaging Report ---
Indication: Chest pain Technique: One view of the chest Comparison: 03/31/2019 Findings: No acute infiltrates, effusions, or congestion. Tortuous calcified aorta. Normal heart size. Upper mediastinum unremarkable. No significant change Impression: No acute process.
--- NOTE | 2019-07-07 17:06 | NUR ---
ED Nurse Note: PT RETURNED FROM CT. CT COMPLETED
--- NOTE | 2019-07-07 17:18 | NUR ---
ED Nurse Note: SISTER BRAXTON AT BEDSIDE
--- NOTE | 2019-07-07 17:25 | NUR ---
ED Nurse Note: URINE SPECIMEN OBTAINED; SENT TO LAB
--- NOTE | 2019-07-07 17:30 | NUR ---
ED Nurse Note: KATJA KADE JR AT BEDSIDE, SIGNED CONSENT FOR TRANSFER
--- NOTE | 2019-07-07 17:33 | Diagnostic Imaging Report ---
Indications: Increased weakness over the past 24 hours Technique: Spiral acquisitions obtained through the brain. Angled axial and coronal 5 x 5 mm slices were reconstructed. Total dose length product 1757 mGycm. CTDI vol(s) 74 mGy. Dose reduction achieved using automated exposure control Comparison: 03/31/2019 Findings: There is age-related enlargement of the ventricles and extra axial CSF spaces. There is periventricular deep white matter low-attenuation, consistent with chronic microvascular ischemic change. There are bilateral basal ganglia old lacunar infarcts demonstrated. Is also old lacunar infarct in the left side of the tyler, equivocally evident previously. No acute intracranial hemorrhage or edema. No mass effect nor midline shift. Intact calvarium. Visualized orbits and sinuses are unremarkable. The mastoids are clear Impression: Chronic and age-related changes as described Multiple lacunar infarcts Negative for acute intracranial bleed or mass effect This agrees with the preliminary interpretation provided overnight by [facility] teleradiology service. The CT scanner at [facility] is accredited by the [employer] and the scans are performed using protocols designed to limit radiation exposure to as low as reasonably achievable to attain images of sufficient resolution adequate for diagnostic evaluation.
[2019-07-07 17:48] LABS: APPEARANCE,URINE CLEAR; BILIRUBIN, URINE NEGATIVE (NEGATIVE); COLOR,URINE PALE YELLOW; GLUCOSE, URINE (UA) NEGATIVE (NEGATIVE); KETONES,URINE NEGATIVE (NEGATIVE); LEUKOCYTE ESTERASE ,URINE NEGATIVE (NEGATIVE); NITRITE,URINE NEGATIVE (NEGATIVE); PH,URINE 7 (4.5-8.0); PROTEIN,URINE NEGATIVE (NEGATIVE); UROBILINOGEN,URINE NORMAL MG/DL (0.0-1.0)
[2019-07-07 18:00] VITALS: BP 122/67
--- NOTE | 2019-07-07 19:15 | NUR ---
HAND-OFF: Report given to TERESA HOWE.
[2019-07-07 20:10] VITALS: BP 127/61
[2019-07-07 22:00] VITALS: BP 146/78
--- NOTE | 2019-07-07 22:00 | NUR ---
NURSE NOTES: Pt arrived from ER via gurney. Got report from Shonda MOORE. Initial assessment done. Pt is non-ambulatory and very weak. Pt is nonverbal and unable to answer any of my questions. Incontinence noted upon arrival. VSS T:98.2 HR:75 R:20 BP:146/78 O2:97% on room air. No s/s of distress or discomfort noted. No pain or n/v noted. Pt resting in bed comfortably. Belongings list verified. surveillance system monitor placed on pt running Sinus Rhythm on the monitor. Bed in low and locked position, call light within reach, bedside table within reach. Continue to monitor. Orders given and placed by Dr. Sanders.
[2019-07-08] VITALS: BP 140/90
--- NOTE | 2019-07-08 03:45 | Consultation ---
DATE OF CONSULTATION: 07/07/2019 CARDIOLOGY CONSULTATION CONSULTING PHYSICIAN: Дмитрий Taylor M.D. REQUESTING PHYSICIAN: Nick Sanders M.D. REASON FOR CONSULTATION: Altered mentation and near syncope. HISTORY OF PRESENT ILLNESS: This is a 79-year-old male with advanced cerebrovascular disease and dementia who was brought into the emergency room by paramedics for evaluation of increased weakness, sluggishness, and general malaise over the past 24 hours or so. The patient himself is not able to give any reliable data and has no specific complaints. Reports are from family members. The patient once hospitalized here most recently in March 2019 following an episode of syncope. At that time, CPR was initiated, but the patient did not have any hemodynamic compromise. His workup included an EEG that revealed moderate to severe encephalopathy, an echocardiogram revealing normal ejection fraction, and an initial EKG revealing sinus bradycardia; however, no recurring episodes after 72 hours of cardiac monitoring were seen. Imaging of the brain confirmed advanced white matter disease. PAST MEDICAL HISTORY: Hyperlipidemia, cerebrovascular disease with multi-infarct dementia, prostatic hypertrophy, osteoarthritis, and asymptomatic sinus node disease. ALLERGIES: None. MEDICATIONS: Reviewed per record; however, compliance not known. SOCIAL HISTORY: No record of smoking, alcohol, or substance abuse. REVIEW OF SYSTEMS: Otherwise is not obtainable; however, review of old records was performed with pertinent data outlined above. PHYSICAL EXAMINATION: VITAL SIGNS: Blood pressure 127/61, pulse 63, respiratory rate 16, and afebrile. HEENT: Temporal wasting. Pale conjunctivae. Dry mucous membranes. NECK: Supple. Carotid upstrokes without delay. LUNGS: Clear. CARDIAC: Regular. Normal S1 and S2 with a fourth heart sound. ABDOMEN: Soft. EXTREMITIES: No edema. NEUROLOGIC: Moderate cognitive impairment. Limited exam otherwise. LABORATORY DATA: White count 8.2 and hemoglobin 11.5. Potassium 4.5, sodium 138, bicarb 29, BUN 18, and creatinine 0.8. Troponin negative. Pro-natriuretic peptide 274. Urinalysis revealed too numerous to count red cells with few bacteria. IMPRESSION: 1. Metabolic encephalopathy in the setting of underlying dementia due to cerebrovascular disease. 2. Mild hypovolemia and dehydration. 3. No signs of cardiac arrhythmias or sinus node dysfunction at this time. 4. Microscopic hematuria. PLAN: 1. Cautious hydration. 2. Consider followup urine study. 3. Anti-platelet and statin therapy. 4. Cardiac monitoring. 5. Check orthostatics. 6. Metabolic workup if not completed during most recent hospital stay. Дмитрий Taylor M.D. DR: FRAN JOB#: [id number] CC:
[2019-07-08 04:00] VITALS: BP 138/88
--- NOTE | 2019-07-08 07:20 | NUR ---
HAND-OFF: Report given to Luz Maria MOORE.
--- NOTE | 2019-07-08 07:30 | NUR ---
NURSE NOTES: Nurse report given by TERESA Abel. Patient's sleeping in bed, no s/s of distress or SOB. Bed low and locked, call light within reach, surveillance system monitor is on, side rails x 2, bed alarm is on. Patient's contracted upper extremities. IV is running fluid, no s/s of infiltration or tenderness. Will continue to monitor.
[2019-07-08 08:00] VITALS: BP 153/92
[2019-07-08 08:20] LABS: ALANINE AMINOTRANSFERASE 28 U/L (12-78); ALBUMIN 3.2 G/DL (3.4-5.0); ALBUMIN/GLOBULIN RATIO 0.8 (1.0-2.7); ALKALINE PHOSPHATASE 86 U/L (46-116); ANION GAP 6 mmol/L (5-15); BILIRUBIN,TOTAL 0.4 MG/DL (0.2-1.0); BLOOD UREA NITROGEN 13 mg/dL (7-18); CALCIUM 9.2 MG/DL (8.5-10.1); CARBON DIOXIDE 27 MMOL/L (21-32); CHLORIDE 108 MMOL/L (98-107); CREATININE 0.8 MG/DL (0.55-1.30); SODIUM 141 MMOL/L (136-145)
[2019-07-08] MEDS: Memantine 10mg tab ORAL SCH (08:29)
[2019-07-08] MEDS: Aspirin Baby 81mg ORAL SCH (08:29)
[2019-07-08 08:34] LABS: ASPARTATE AMINO TRANSFERASE 27 U/L (15-37)
--- NOTE | 2019-07-08 10:46 | NUR ---
RD ASSESSMENT & RECOMMENDATIONS SEE CARE ACTIVITY FOR COMPLETE ASSESSMENT DAILY ESTIMATED NEEDS: Needs based on Cardiac / 61.5kg 25-30 kcals/kg 3685-5633 total kcals 1-1.3 g protein/kg 62-80 g total protein 25-30 mL/kg 6944-3818 total fluid mLs NUTRITION DIAGNOSIS: Swallowing difficulty R/T dysphagia, advanced dysphagia, lethargy as evidenced by pt on puree texture diet w/ NTL at this time. CURRENT DIET:Cardiac , puree w/ NTL PO DIET RECOMMENDATIONS: REC LOW NA DIET / texture per WIRE DROPPER ENTERAL NUTRITION RECOMMENDATIONS: Jevity 1.2 @ 60ml/hr x 24 hrs to provide 1440ml, 1728kcal, 80g prot, 1162ml free water * IF PT NOT SAFE FOR ORAL DIET AND NONORAL FEEDING IS PART OF POC -> Obtain GI access, initiate Jevity 1.2 @ 20ml/hr x 6hrs -> Advance 10ml q 4-6 hrs as tolerated to goal rate -> Without IVF, H2O flush of 150ml q 6 hrs -> HOB over 30 degrees ADDITIONAL RECOMMENDATIONS: 1) WIRE DROPPER evaluation for safety of oral intake and appropriate diet texture -> pt lethargic 2) Nonoral feeding if fails swallow eval 3) Calibrated bedscale wt for accurate CBW 4) Monitor lytes, replete as needed
[2019-07-08 12:00] VITALS: BP 139/77
[2019-07-08] MEDS ORDERED: DOCUSATE SODIU100 MG ORAL (13:50)
[2019-07-08 16:00] VITALS: BP 147/75
--- NOTE | 2019-07-08 16:45 | NUR ---
*-* INSURANCE *-* ALL AVAILABLE CLINICALS HAVE BEEN FAXED TO; [facility] CM: DEO #[phone] EXT [id number] FAX#[phone] REVIEWS/CLINICALS
--- NOTE | 2019-07-08 19:30 | NUR ---
NURSE NOTES: received report from TERESA Loera. Pt is awake, lying, semi-quinn's; resting comfortably. No signs of acute distress noted. Denies any pain at this time. AOx1. Checked IV site; patent and flushed. No erythema, bleeding or infiltration noted. Bed at lowest position, brakes on, siderails upx2. Call light within reach. Will continue to monitor.
--- NOTE | 2019-07-08 19:36 | NUR ---
HAND-OFF: Report given to TERESA Gutiérrez. Patient's stable, plan of care endorsed. .
[2019-07-08 20:00] VITALS: BP 151/82
[2019-07-08] MEDS ORDERED: Atorvastatin 20mg tab ORAL SCH (21:00)
--- NOTE | 2019-07-08 22:00 | History and Physical Report ---
DATE OF ADMISSION: 07/07/2019 HISTORY OF PRESENT ILLNESS: The patient is a 79-year-old male with history of dementia and previous CVA was brought to the hospital with weakness and sluggishness. The patient is unable to provide any further history. The patient was admitted previously with syncope. At that time, he was found to have encephalopathy found. The patient was admitted to the hospital for subsequent management and care PAST MEDICAL HISTORY: Hyperlipidemia, previous CVA, dementia, BPH, osteoarthritis. ALLERGIES: None. HOME MEDICATIONS: Includes aspirin, Lipitor, Namenda. ALLERGIES: None reported. CODE STATUS: Full. REVIEW OF SYSTEMS: Not obtainable. PHYSICAL EXAMINATION: GENERAL: Reveals elderly male. VITAL SIGNS: Blood pressure 130/90, heart rate 64, respirations 18, afebrile. HEENT: Unremarkable. CHEST: Decreased breath sounds bilaterally. HEART: Normal heart sounds. ABDOMEN: Soft. EXTREMITIES: There is no edema. The patient feels that he has stiffness in the right upper extremity and lower extremity. NEUROLOGIC: The patient has previous CVA. He seems uncomfortable. LABORATORY AND DIAGNOSTIC DATA: Normal CBC and BMP. Hemoglobin 11.5. Chemistry is normal. IMAGING STUDIES: X-ray of chest with clear lungs bilaterally. Head CT was obtained which shows chronic changes. IMPRESSION: 1. History of syncope. 2. Altered mental status. 3. Dementia. 4. Previous CVA DISCUSSION: We will attempt to obtain more information. At this time, he appears to baseline. We will attempt to contact family. We will follow carefully as radiographic technologist intervention plan. Nick Sanders M.D. DR: Corinna JOB#: [id number] CC:
[2019-07-09] VITALS: BP 158/85
--- NOTE | 2019-07-09 02:30 | Progress Note ---
DATE: 07/08/2019 CARDIOLOGY PROGRESS NOTE SUBJECTIVE: The patient is without any loss of consciousness. Monitored rhythm, sinus. Heart rates in the 60s and 70s even during sleep. OBJECTIVE: VITAL SIGNS: Blood pressure 147/75, pulse 79, respirations 20. LUNGS: Clear. CARDIAC: Regular. ABDOMEN: Soft. EXTREMITIES: No edema. NEUROLOGIC: Moderate confusion. LABORATORY DATA: Chemistry panel within normal limits. Albumin 3.2. B12 plus folate, TSH, and PSA are all within normal limits. Pro-natriuretic peptide yesterday was 274. IMPRESSION: 1. Dementia. 2. No signs of bradycardia. 3. Cerebrovascular disease. No signs of any acute process. PLAN: 1. Continue cardiac monitoring. 2. Cautious hydration. 3. Nutritional support. 4. No additional cardiovascular workup presently planned. Дмитрий Taylor M.D. DR: PASTORA JOB#: [id number] CC:
[2019-07-09 04:00] VITALS: BP 134/77
--- NOTE | 2019-07-09 07:08 | NUR ---
HAND-OFF: Report given to TERESA Loera. Pt is sleeping and in stable condition. Plan of care endorsed.
--- NOTE | 2019-07-09 07:10 | NUR ---
NURSE NOTES: Nurse report given by TERESA Gutiérrez. Patient's sleeping in bed, response to shaken, nonverbal, not oriented. Bed low and locked, call light within reach, side rails x 3, radiation monitor is on. IV is saline locked, patent and asymptomatic. Will continue to monitor.
[2019-07-09 08:00] VITALS: BP 139/86
--- NOTE | 2019-07-09 08:40 | Pulmonology Progress Note ---
Assessment/Plan Assessment/Plan IMPRESSION: 1. History of syncope. 2. Altered mental status. 3. Dementia. 4. Previous CVA DISCUSSION: No cardiac arrythmias No signs of infection Will dc back to SNF Subjective Interval Events: None new Constitutional: Reports: no symptoms HEENT: Repors: no symptoms Respiratory: Reports: no symptoms Cardiovascular: Reports: no symptoms Gastrointestinal/Abdominal: Reports: no symptoms Genitourinary: Reports: no symptoms Allergies: Coded Allergies: No Known Allergies (Unverified , 08/11/15) Objective Last 24 Hour Vital Signs Date Time Temp Pulse Resp B/P (MAP) Pulse Ox O2 Delivery O2 Flow Rate FiO2 07/09/19 04:00 98.7 95 24 134/77 (96) 99 07/09/19 03:30 99 07/09/19 00:00 105 07/09/19 00:00 99.0 104 24 158/85 (109) 100 07/08/19 21:00 Room Air Room Air 07/08/19 20:00 77 07/08/19 20:00 97.9 70 24 151/82 (105) 99 07/08/19 16:00 98.0 79 20 147/75 (99) 98 07/08/19 16:00 72 07/08/19 12:00 59 07/08/19 12:00 98.2 66 18 139/77 (97) 97 07/08/19 09:00 Room Air Intake and Output 07/08/19 07/09/19 18:59 06:59 Intake Total 390 ml Output Total 200 ml 200 ml Balance 190 ml -200 ml Intake Oral 390 ml Output Urine Total 200 ml 200 ml # Voids 5 2 # Bowel Movements 1 1 General Appearance: no acute distress HEENT: normocephalic Respiratory/Chest: chest wall non-tender, lungs clear Cardiovascular: normal peripheral pulses, normal rate Abdomen: normal bowel sounds Current Medications Medications (Trade) Dose Ordered Sig/Hao Route PRN Reason Start Time Stop Time Status Last Admin Dose Admin Aspirin (ASA) 81 mg DAILY ORAL 07/08/19 09:00 08/07/19 08:59 07/08/19 08:29 Atorvastatin Calcium (Lipitor) 20 mg BEDTIME ORAL 07/08/19 21:00 08/07/19 20:59 07/08/19 21:05 Memantine (Namenda) 10 mg DAILY ORAL 07/08/19 09:00 08/07/19 08:59 07/08/19 08:29 Nick Sanders MD Jul 09, 2019 08:40
[2019-07-09] MEDS: Memantine 10mg tab ORAL SCH (08:45)
[2019-07-09] MEDS: Aspirin Baby 81mg ORAL SCH (08:46)
--- NOTE | 2019-07-09 09:36 | NUR ---
NURSE NOTES: Left message to Dr. Sanders regarding clarification of discharge placement. Patient's from home and physician ordered to discharge him back to SNF and there's no case management for SNF placement either.
--- NOTE | 2019-07-09 09:40 | NUR ---
CASE MANAGEMENT: INITIAL REVIEW 79 YR OLD MALE BIBA FROM HOME PMH: NON AMBULATORY CC:FELL OFF COMMODE (SLEEP VS SYNCOPE); ENCEPHALOPATHY SI: SYNCOPE . ALTERED LEVEL OF CONSCIOUSNESS . FALL . DEMENTIA 98.2 78 16 148/83 98% ON RA H/H 11.5/36.0 BNP 274 IS: IVF NS BOLUS X1 CXRAY HEAD CT \: 2E TELE UNIT DCP: PATIENT IS FROM HOME AND ON HOSPICE CARE PLAN: HOME WITH HOSPICE
--- NOTE | 2019-07-09 10:08 | NUR ---
DISCHARGE PLANNED: DISCUSSED DISCHARGE WITH SON PATIENT IS DISCHARGED HOME WITH HOSPICE [facility] T: [phone] SON WILL CALL TO [facility] PICKUP TIME PER SON 1-1:30PM
[2019-07-09 12:00] VITALS: BP 100/57
--- NOTE | 2019-07-09 15:00 | NUR ---
NURSE NOTES: Patient's being discharge back to home with [facility] per Dr. Sanders's order. Son, Sina Vu, clarified that patient has hospice at home. Patient's in stable condition, no s/s of distress or SOB, no sign of pain. Patient's unable to sign discharge documents and patient's belonging list, noted in the chart. Notified Sina Ernandez, Son, regarding patient's getting discharge back home. IV is removed, tearer is removed, ID discarded properly. Patient's going home with [facility], BLS. Patient's off the floor at 1500. Charge nurse and blow mold technician aware.
--- NOTE | 2019-07-10 01:45 | Progress Note ---
DATE: 07/09/2019 CARDIOLOGY PROGRESS NOTE SUBJECTIVE: The patient has not had any new episodes of distress. There is no loss of consciousness noted. hydrocrane operator has remained in sinus rhythm. No bradycardias. OBJECTIVE: VITAL SIGNS: Blood pressure 151/82, pulse 70, respirations 24 last night. Presently blood pressure 134/77, pulse 95, respirations 24, oxygen saturation is 99%. LUNGS: Clear. CARDIAC: Regular. No new murmur. ABDOMEN: Soft. EXTREMITIES: There is no edema. IMPRESSION: 1. Stable cardiac rhythm. No signs of bradyarrhythmia. No signs of acute infection. 2. Baseline dementia with encephalopathy. PLAN: 1. Avoid tight blood pressure control. 2. Continue current medication regimen. 3. Stable for discharge to [facility] facility from cardiovascular standpoint. Дмитрий Taylor M.D. DR: HARMAN JOB#: [id number] CC:
--- NOTE | 2019-07-11 13:42 | Discharge Summary ---
Discharge Summary Discharge Summary _ DATE OF ADMISSION: 07/07/2019 DATE OF DISCHARGE: 07/09/2019 DISCHARGED BY: Dr. Sanders REASON FOR ADMISSION: 79 years old male with past medical history of CVA, hyperlipidemia, BPH, osteoarthritis, dementia, was brought to the hospital with generalized weakness and sluggishness. Patient was unable to provide any further history. Patient was previously admitted with syncope. Upon evaluation vital signs were stable. Laboratory work-up revealed stable electrolytes and renal parameters. Glucose 114. Stable LFT. Troponin 0.013. pro BNP 274. Albumin 3.4. No leukocytosis ,hemoglobin 11.5 ,hematocrit 36. Platelet count 162. Urinalysis revealed hematuria, but no pyuria and few bacteria. CT of the head revealed chronic and age-related changes. Multiple lacunar infarcts. No evidence of acute intracranial bleeding or mass-effect. Chest x-ray demonstrated no acute cardiopulmonary pathology. Patient subsequently admitted for further work-up. CONSULTANTS: methods and procedures analyst [facility] COURSE: Patient admitted to telemetry floor. CT of the head revealed no acute intracranial pathology. Cardiology consult was requested. Patient started on cautious hydration. Patient continued with antiplatelet therapy and statin . Telemetry showed no signs of cardiac arrhythmia or sinus node dysfunction at this time. Head Sawyer recommended follow-up on the urine study, which can be done as outpatient. TSH was within normal limits. PSA was within normal limits. Stable B12 and folate. Patient continued to be in sinus rhythm, occasional low sinus tachycardia . Nutritional support provided. Per methods and procedures analyst , no additional cardiovascular work-up was necessarily. Telemetry continued to show stable cardiac rhythm, no signs of bradyarrhythmia . No signs of acute infection. Head Sawyer recommended avoid tight tight blood pressure control and continue with current medication regimen. Head Sawyer cleared patient for discharge from cardiovascular standpoint. Family decided to take patient back home with hospices services. Patient was stable for discharge. FINAL DIAGNOSES: Metabolic encephalopathy in the setting of underlying dementia due to cerebrovascular disease Mild hypovolemia and dehydration Microscopic hematuria History of multiply prior CVA History of syncope DISCHARGE MEDICATIONS: See Medication Reconciliation list. DISCHARGE INSTRUCTIONS: Patient was discharged home with hospice services. I have been assigned to dictate discharge summary for this account. I was not involved in the patient's management. Letitia Hernandez NP Jul 11, 2019 13:42
--- NOTE | 2019-07-17 13:54 | Cardiology Report ---
APPROVED REPORT EKG Measurement Heart [id number] <Conclusion> Normal sinus rhythm Nonspecific ST abnormality Abnormal ECG
== END 2019-07-09 15:14 | disposition hospice, inpatient (51) | DRG 640 ==
LOC: EDUNIT# 15:56 → EDBD 15:56 → EMR 16:17 → INTOOBSV 18:32 → 2E 18:32 → OBSVTOIN 18:32 → UNDOADMOB 18:32 → EDBEDREQ 18:50
DX: E86.0 Dehydration (principal); G93.41 Metabolic encephalopathy; E86.1 Hypovolemia; Z86.73 Personal history of transient ischemic attack (TIA), and cerebral infarction without residual deficits; F01.50 Vascular dementia, unspecified severity, without behavioral disturbance, psychotic disturbance, mood disturbance, and anxiety; E78.5 Hyperlipidemia, unspecified; N40.0 Benign prostatic hyperplasia without lower urinary tract symptoms; M19.90 Unspecified osteoarthritis, unspecified site; Z79.82 Long term (current) use of aspirin; R31.29 Other microscopic hematuria; R55 Syncope and collapse
CPT/HCPCS: 36415; 70450; 71045; 80053; 81003; 82607; 82746; 83690; 83880; 84153; 84443; 84484; 85025; 93005; 99285

== ENCOUNTER 2020-03-10 14:41 | Inpatient (IN) | payer MEDICAID, MEDICARE, OTHER ==
[~2020-03-10] VITALS: Ht 185.4 cm; Wt 68.0 kg
[~2020-03-10 14:41] MED LIST changes: +DOCUSATE SODIU100 MG ORAL
[2020-03-10] MEDS ORDERED: ATORVASTATIN CA10 MG ORAL (14:47)
--- NOTE | 2020-03-10 14:55 | Emergency Room Report ---
History of Present Illness General Chief Complaint: General Complaint Source: Family Member, EMS Present Illness HPI Patient was on the toilet and had a near syncopal episode. Paramedics found him hypotensive and bradycardic. He started IV fluids. Apparently he is in hospice for Parkinson's disease and Alzheimer's disease. The son states that he wants him to be a full code at this time. Patient is unable to give history. Family reports that they have been trying to keep up with his fluids. He has difficulty swallowing and therefore they mix and grind food with water. They deny cough, vomiting, diarrhea or foul smelling urine. Allergies: Coded Allergies: No Known Allergies (Unverified , 08/11/15) COVID-19 Screening Contact w/high risk pt: No Experienced COVID-19 symptoms?: No COVID-19 Testing performed HORTICULTURE INSTRUCTOR: No Patient History Limited by: medical condition Past Medical History: see triage record Social History Narrative From home, hospice however family say full code Reviewed Nursing Documentation: PMH: Agreed; PSxH: Agreed Nursing Documentation-PMH Past Medical History: No History, Except For Hx Asthma: Yes Hx Cancer: No Hx Gastrointestinal Problems: No Hx Dementia: Yes Hx Alzheimer's Disease: Yes Physical Exam Vital Signs Date Time Temp Pulse Resp B/P (MAP) Pulse Ox O2 Delivery O2 Flow Rate FiO2 03/10/20 14:42 97.3 80 17 92/64 (73) 100 Room Air Sp02 EP Interpretation: reviewed, normal General Appearance: lethargic, Chronically Ill Head: normocephalic Eyes: bilateral eye normal inspection, bilateral eye PERRL, bilateral eye EOMI , bilateral eye other ENT: dry mucus membranes Neck: supple, no meningismus Respiratory: lungs clear, normal breath sounds Cardiovascular #1: regular rate, rhythm Cardiovascular #2: 2+ radial (R) Gastrointestinal: normal inspection, non tender, no mass, non-distended, decreased bowel sounds Genitourinary: normal inspection Musculoskeletal: back normal, other - Contractures hands Neurologic: Babinski - right, equivocal left, other - Eyes closed, minimal response to pain, occasionally moans Psychiatric: other - Lethargy Skin: no rash, warm/dry Procedures Critical Care Time Critical Care Time Total Critical Care Time: 30 min bedside evaluation and treatment excludes procedures (EKG). Reason for critical care: Hypotension, exclusion of sepsis, multiple re- evaluations, discussion with family Possible complications: hypotension, hypertension, LA, shock, arrhythmias, metabolic acidosis, end organ damage, respiratory failure. Interventions: Fluid resuscitation, repeat evaluations, evaluation of labs and consideration for antibiotics Course: Patient presented post syncopal episode and hypotension. Fluid resuscitation initiated in the field and continued in the emergency department. Critical evaluation for possible infectious source. No infectious source identified. Patient extremely dehydrated. Discussed findings with family. Need for continued observation for possible cardiac injury. CODE STATUS reviewed with family and EMS. Consultations: nursing staff, EMS, family, admitting physician Performed by: Dr. Woodward Tolerated well condition = serious Medical Decision Making Diagnostic Impression: Primary Impression: Syncope Qualified Codes: R55 - Syncope and collapse Additional Impressions: Hypotension Qualified Codes: I95.89 - Other hypotension Dehydration COVID-19 ruled out by laboratory testing ER Course Apparently slight patient presents with near syncope and hypotension. Differential includes sepsis, acute myocardial infarction, dehydration electrolyte imbalance, medication reaction amongst others. Clinically the patient is dehydrated at this time. Evaluation with EKG, chest x-ray and labs. He chronically has abnormal neurologic function and CT is not indicated at this time. We will continue 30 mill per kilogram bolus and then 300 mils per hour. He may need antibiotics. Complex patient as he is unable to give history and has multiple comorbidities. EKG without injury. Chest x-ray no infiltrates. Labs with normal white count and CMP. Urinalysis negative. COVID-19 negative. Lactate normal. WBC normal. BP better after fluids. No source for initiation of antibiotics. Discussed with family. Patient more alert. Still needs observation for rule out myocardial injury and other possible reasons for hypotension. Decreasing oxygen saturation. Oxygen begun with improvement in saturation. Discussed with Dr. Sanders. Laboratory Tests Test 03/10/20 15:10 White Blood Count 9.0 K/UL (4.8-10.8) Red Blood Count 3.55 M/UL (4.70-6.10) L Hemoglobin 10.3 G/DL (14.2-18.0) L Hematocrit 32.7 % (42.0-52.0) L Mean Corpuscular Volume 92 FL (80-99) Mean Corpuscular Hemoglobin 28.9 PG (27.0-31.0) Mean Corpuscular Hemoglobin Concent 31.3 G/DL (32.0-36.0) L Red Cell Distribution Width 13.5 % (11.6-14.8) Platelet Count 161 K/UL (150-450) Mean Platelet Volume 7.2 FL (6.5-10.1) Neutrophils (%) (Auto) 79.0 % (45.0-75.0) H Lymphocytes (%) (Auto) 12.5 % (20.0-45.0) L Monocytes (%) (Auto) 5.6 % (1.0-10.0) Eosinophils (%) (Auto) 1.7 % (0.0-3.0) Basophils (%) (Auto) 1.2 % (0.0-2.0) Prothrombin Time 11.5 SEC (9.30-11.50) Prothrombin Time INR 1.0 (0.9-1.1) Activated Partial Thromboplast Time 20 SEC (23-33) L Urine Color Pale yellow Urine Appearance Clear Urine pH 7 (4.5-8.0) Urine Specific [place] 1.005 (1.005-1.035) Urine Protein Negative (NEGATIVE) Urine Glucose (UA) Negative (NEGATIVE) Urine Ketones Negative (NEGATIVE) Urine Blood 3+ (NEGATIVE) H Urine Nitrite Negative (NEGATIVE) Urine Bilirubin Negative (NEGATIVE) Urine Urobilinogen Normal MG/DL (0.0-1.0) Urine Leukocyte Esterase Negative (NEGATIVE) Urine RBC 20-30 /HPF (0 - 0) H Urine WBC 0-2 /HPF (0 - 0) Urine Squamous Epithelial Cells Occasional /LPF Urine Bacteria Few /HPF (NONE) Sodium Level 137 MMOL/L (136-145) Potassium Level 3.9 MMOL/L (3.5-5.1) Chloride Level 106 MMOL/L (98-107) Carbon Dioxide Level 28 MMOL/L (21-32) Anion Gap 3 mmol/L (5-15) L Blood Urea Nitrogen 15 mg/dL (7-18) Creatinine 0.9 MG/DL (0.55-1.30) Estimated Glomerular Filtration Rate > 60 mL/min (>60) Glucose Level 101 MG/DL (74-106) Lactic Acid Level 0.80 mmol/L (0.4-2.0) Calcium Level 8.7 MG/DL (8.5-10.1) Magnesium Level 2.1 MG/DL (1.8-2.4) Total Bilirubin 0.3 MG/DL (0.2-1.0) Aspartate Amino Transferase (AST) 23 U/L (15-37) Alanine Aminotransferase (ALT) 27 U/L (12-78) Alkaline Phosphatase 87 U/L (46-116) Total Creatine Kinase 52 U/L (26-308) Troponin I 0.011 ng/mL (0.000-0.056) Pro-B-Type Natriuretic Peptide 273 pg/mL (0-125) H Total Protein 6.5 G/DL (6.4-8.2) Albumin 2.9 G/DL (3.4-5.0) L Globulin 3.6 g/dL Albumin/Globulin Ratio 0.8 (1.0-2.7) L Lipase 114 U/L (73-393) Microbiology Date/Time Source Procedure Growth Status 03/10/20 15:00 Nasopharynx SARS-CoV-2 RdRp Gene Assay - Final Complete EKG Diagnostic Results Rate: normal Rhythm: NSR ST Segments: no acute changes Rhythm Strip Diag. Results EP Interpretation: yes Rhythm: NSR, no PVC's, no ectopy, other - block noted transiently Chest X-Ray Diagnostic Results Chest X-Ray Diagnostic Results : Chest X-Ray Ordered: Yes # of Views/Limited/Complete: 1 View Indication: Other EP Interpretation: Yes Interpretation: no consolidation, no effusion, no pneumothorax Impression: No acute disease Electronically Signed by: Electronically signed by Дмитрий Woodward MD Last Vital Signs Date Time Temp Pulse Resp B/P (MAP) Pulse Ox O2 Delivery O2 Flow Rate FiO2 03/11/20 00:00 99.1 104 16 119/87 (98) 99 03/10/20 20:47 Room Air 03/10/20 20:20 2.0 Status: improved Disposition: ADMITTED INPATIENT Condition: Serious Дмитрий Woodward MD Mar 10, 2020 14:55
[2020-03-10] MEDS ORDERED: Sodium Chloride 2,200 ML IVLG ONE (15:00)
--- NOTE | 2020-03-10 15:20 | NUR ---
ED Nurse Note:pt. was BIBA from home with hypotension and possible sepsis, pt. is confused at his base line, VSS, placed on steam clothes press operator
--- NOTE | 2020-03-10 15:47 | NUR ---
blood cultures, blood urine and covid swab sent to labs, given iv fluids
[2020-03-10 16:09] LABS: BASOPHILS % (AUTO) 1.2 % (0.0-2.0); EOSINOPHILS % (AUTO) 1.7 % (0.0-3.0); HEMATOCRIT 32.7 % (42.0-52.0); HEMOGLOBIN 10.3 G/DL (14.2-18.0); LYMPHOCYTES % (AUTO) 12.5 % (20.0-45.0); MEAN CORPUSCULAR VOLUME 92 FL (80-99); MONOCYTES % (AUTO) 5.6 % (1.0-10.0); PLATELET COUNT 161 K/UL (150-450); RED BLOOD COUNT 3.55 M/UL (4.70-6.10); RED CELL DISTRIBUTION WIDTH 13.5 % (11.6-14.8)
[2020-03-10 16:10] LABS: APPEARANCE,URINE CLEAR; BILIRUBIN, URINE NEGATIVE (NEGATIVE); COLOR,URINE PALE YELLOW; GLUCOSE, URINE (UA) NEGATIVE (NEGATIVE); KETONES,URINE NEGATIVE (NEGATIVE); LEUKOCYTE ESTERASE ,URINE NEGATIVE (NEGATIVE); NITRITE,URINE NEGATIVE (NEGATIVE); PH,URINE 7 (4.5-8.0); PROTEIN,URINE NEGATIVE (NEGATIVE); UROBILINOGEN,URINE NORMAL MG/DL (0.0-1.0)
[2020-03-10 16:16] LABS: ANION GAP 3 mmol/L (5-15); BLOOD UREA NITROGEN 15 mg/dL (7-18); CALCIUM 8.7 MG/DL (8.5-10.1); CARBON DIOXIDE 28 MMOL/L (21-32); CHLORIDE 106 MMOL/L (98-107); CREATININE 0.9 MG/DL (0.55-1.30); POTASSIUM 3.9 MMOL/L (3.5-5.1); SODIUM 137 MMOL/L (136-145)
--- NOTE | 2020-03-10 16:26 | Diagnostic Imaging Report ---
Indication: Shortness of breath Technique: One view of the chest Comparison: 07/07/2019 Findings: Lungs and pleural spaces are clear. Heart size is normal. Prominent first chondrocostal junctions are again noted bilaterally. The aorta is tortuous and ectatic. There are degenerative changes of both shoulders. No significant interim change Impression: No acute process
[2020-03-10 16:31] LABS: ALANINE AMINOTRANSFERASE 27 U/L (12-78); ALBUMIN 2.9 G/DL (3.4-5.0); ALBUMIN/GLOBULIN RATIO 0.8 (1.0-2.7); ALKALINE PHOSPHATASE 87 U/L (46-116); ASPARTATE AMINO TRANSFERASE 23 U/L (15-37); BILIRUBIN,TOTAL 0.3 MG/DL (0.2-1.0); CREATINE KINASE 52 U/L (26-308)
[2020-03-10 16:56] VITALS: BP 120/68
[2020-03-10 18:05] VITALS: BP 125/77
--- NOTE | 2020-03-10 19:06 | NUR ---
ED Nurse Note: pt care endorsed by TERESA Romano. pt has HR in the high 90's-low 100's, otherwise vitals remain stable on the cardiac exercise specialist. R and and R forearm IV lines are intact and patent, flushing well. pt's steve cath is also patent and draining with about 1300 cc of light yellow urine in collection bag. no acute distress is noted at this time, will cont to monitor pt
[2020-03-10 19:30] VITALS: BP 133/84
--- NOTE | 2020-03-10 19:47 | NUR ---
ED Nurse Note: report given to TERESA Montes De Oca. states room is not ready, will call back in 2 minutes
--- NOTE | 2020-03-10 19:47 | NUR ---
NURSE NOTES: Room is not ready for patient, the room 219-1 is dirty and a bed is not there yet.
--- NOTE | 2020-03-10 20:20 | NUR ---
TRANSFER TO FLOOR: Patient transferred to as ordered, per Dr. Woodward. Report given to TERESA Montes De Oca . pt had no belongings
[2020-03-10 20:30] VITALS: BP 138/89
[2020-03-10] MEDS ORDERED: Miralax 17gm pkt ORAL PRN (20:30)
[2020-03-10] MEDS ORDERED: Docusate 100mg cap ORAL PRN (20:30)
--- NOTE | 2020-03-10 20:30 | NUR ---
NURSE NOTES: Patient admitted to tele-unit 219-1 via gurney from the ED. liquefaction and regasification helper in place, steve intact, draining clear yellow urine, IV sites patent and flushing, vital signs are stable, breathing unlabored and even on room air, alert and oriented x0, admit strip shows sinus tachycardia 101 with 1st degree AVB. Will notify Dr. Sanders.
--- NOTE | 2020-03-10 20:35 | NUR ---
NURSE NOTES: Received Dr. Temple's orders to continue all home medications, regular diet, bilateral lower extremities SCDs, and NS at 75mL / h.
--- NOTE | 2020-03-10 21:23 | NUR ---
NURSE NOTES: Called Dr. Sanders and left a voicemail regarding sinus rhythm 1st-degree HB, vital signs stable.
[2020-03-11] VITALS: BP 119/87
--- NOTE | 2020-03-11 03:15 | Consultation ---
DATE OF CONSULTATION: 03/10/2020 CARDIOLOGY CONSULTATION CONSULTING PHYSICIAN: Дмитрий Taylor MD. REFERRING PHYSICIAN: Nick Sanders MD. REASON FOR CONSULTATION: Near syncope. HISTORY OF PRESENT ILLNESS: This is a 80-year-old male. He apparently lives at home with family members. He has been declining in function due to Parkinson disease and dementia and had been on hospice care. He was brought into the emergency room by paramedics hypotensive and bradycardic after suffering a near syncopal episode on the toilet. Additional data is not available. The patient apparently has had progressive difficulty with swallowing due to his cerebrovascular disease. Diet has been pureed and mixed with fluids. During this stay, family members have been trying to "keep up with his fluid intake." The patient has not had any fevers or chills, nausea, vomiting, diarrhea, or upper respiratory symptoms. There is no known COVID-19 exposure. In the emergency room, his initial blood pressure was 92/64 with a heart rate of 80 and respiratory rate of 17. Notes from paramedics found him to be bradycardic, however, in the field and he was given fluid en route. PAST MEDICAL HISTORY: As noted above. ALLERGIES: None known. MEDICATIONS: Not presently available. FAMILY HISTORY: Not known. SOCIAL HISTORY: Not known. REVIEW OF SYSTEMS: Full review of systems other than data noted above is not obtainable from the patient. PHYSICAL EXAMINATION: GENERAL: Thin, frail, in no acute distress. HEENT: Conjunctivae pink. Mucous membranes dry. NECK: Supple. LUNGS: Clear. CARDIAC: Regular, normal S1, S2 with no murmur. ABDOMEN: Soft. EXTREMITIES: Poor capillary refill. No edema. LABORATORY DATA: White count 9, hemoglobin 10. Lactate normal. Urinalysis with 0 to 2 white cells, 20 to 30 red cells. Sodium 137, potassium 3.9, bicarb 28, BUN 15, creatinine 0.9. Glucose 101. Magnesium 2.1. Albumin 2.9. Troponin 0.011. Pro-natriuretic peptide 273. Electrocardiogram with sinus rhythm, right bundle-branch block. IMPRESSION: 1. Vasovagally-mediated syncopal episode, multifactorial. Contributing etiologies include hypovolemia, orthostasis, component of conduction system disease and autonomic dysfunction. 2. The patient also has underlying dementia due to Parkinson disease. RECOMMENDATION: 1. Volume resuscitation with IV fluids. 2. Aspiration precautions. 3. Cardiac monitoring. 4. Thyroid panel. 5. Followup troponin level. 6. Further recommendations to follow based on clinical course. Дмитрий Taylor M.D. DR: LIZETTE JOB#: [id number] CC:
[2020-03-11 04:00] VITALS: BP 129/74
--- NOTE | 2020-03-11 06:51 | NUR ---
CASE MANAGEMENT: REVIEW 80 YEAR OLD MALE BIBA FROM HOME CC: SYNCOPAL EPISODE . hx PARKINSON'S DISEASE SI: HYPOTENSION . SYNCOPE T 99.1 HR 80 RR 17 BP 92/64 SAT 100% NC/2L H/H 10.3/32.7 BNP 273 APTT 20 UA: BLOOD 3+ RBC 20-30 IS: NS IVF BOLUS X1 EKG DIAGNOSTIC RESULTS RATE: NORMAL RHYTHM: NSR ST SEGMENTS: NO ACUTE CHANGES 2D ECHO PENDING PATIENT ADMITTED TO TELEMETRY UNIT 03/10/2020 DCP: PATIENT IS FROM HOME
--- NOTE | 2020-03-11 07:00 | NUR ---
NURSE HAND-OFF REPORT: Important Events on Shift: hematuria, endorsed to notify the primary doctor, verify DVT prophylaxis Patient Status: Diet: Pending Orders: Pending Results/Labs: Pending MD notification: Latest Vital Signs: Temperature 99.3 , Pulse 99 , B/P 129 /74 , Respiratory Rate 16 , O2 SAT 99 , Room Air, O2 Flow Rate 2.0 . Vital Sign Comment: EKG Rhythm: 1st Degree HB Rhythm change?: Artem VARELA Notified?: Artem Sanders MD Response: Latest Watson Fall Score: 70 Fall Risk: High Risk Safety Measures: Call light Within Reach, Bed Alarm Zone 2, Side Rails Side Rails x2, Bed position Low and Locked. Fall Precautions: Yellow Socks Yellow Gown Patient Fall Education Report given to .
--- NOTE | 2020-03-11 07:09 | NUR ---
INSURANCE CLINICALS/REVIEW FAXED TO [facility] [place] FAX [phone]
--- NOTE | 2020-03-11 07:24 | NUR ---
NURSES NOTE: Received report from TERESA Munroe. PT is A/O x1 but non verbal. Arousable by name. Pt shows no SOB ro acut Addendum: 03/11/20 at 0730 by Mariajose Barreto RN NURSES NOTE Received report from TERESA Munroe. PT is A/O x1 but non verbal. Arousable by name. Pt shows no SOB or acute distress noted. Pt shows no signs or pain sitting semi fowlers in comfortable position. Pt is on RA and SATing at 98%. IV site is on LFA with NS running @75cc/hr. Also has a LH 22G with is saline locked. Pt has steve 16F which is intact and draining well with pinkish yellow urine. Bed in lowest position and locked.
[2020-03-11 07:32] LABS: EOSINOPHILS % (AUTO) 1.3 % (0.0-3.0); HEMATOCRIT 32.8 % (42.0-52.0); HEMOGLOBIN 10.2 G/DL (14.2-18.0); LYMPHOCYTES % (AUTO) 18.3 % (20.0-45.0); MEAN CORPUSCULAR VOLUME 92 FL (80-99); MONOCYTES % (AUTO) 8.6 % (1.0-10.0); NEUTROPHILS % (AUTO) 70.7 % (45.0-75.0); PLATELET COUNT 149 K/UL (150-450); RED BLOOD COUNT 3.55 M/UL (4.70-6.10); RED CELL DISTRIBUTION WIDTH 13.9 % (11.6-14.8); WHITE BLOOD COUNT 9.8 K/UL (4.8-10.8)
[2020-03-11 07:50] LABS: ALANINE AMINOTRANSFERASE 21 U/L (12-78); ALBUMIN 2.9 G/DL (3.4-5.0); ALBUMIN/GLOBULIN RATIO 0.8 (1.0-2.7); ALKALINE PHOSPHATASE 97 U/L (46-116); ANION GAP 6 mmol/L (5-15); ASPARTATE AMINO TRANSFERASE 22 U/L (15-37); BILIRUBIN,TOTAL 0.3 MG/DL (0.2-1.0); BLOOD UREA NITROGEN 10 mg/dL (7-18); CALCIUM 8.5 MG/DL (8.5-10.1); CARBON DIOXIDE 27 MMOL/L (21-32); CHLORIDE 108 MMOL/L (98-107); CREATININE 0.8 MG/DL (0.55-1.30); SODIUM 141 MMOL/L (136-145)
[2020-03-11 08:00] VITALS: BP 132/74
[2020-03-11] MEDS: Memantine 10mg tab ORAL SCH (08:57)
[2020-03-11] MEDS: Aspirin EC 81mg tab ORAL SCH (08:57)
[2020-03-11 12:00] VITALS: BP 129/78
--- NOTE | 2020-03-11 12:33 | NUR ---
RD ASSESSMENT & RECOMMENDATIONS SEE CARE ACTIVITY FOR COMPLETE ASSESSMENT DAILY ESTIMATED NEEDS: Needs based on Underweight, wound / 68.1kg 30-35 kcals/kg 3068-2049 total kcals 1.25-1.5 g protein/kg 85-102 g total protein 25-35ml/kcal mL/kg 4668-3850 total fluid mLs NUTRITION DIAGNOSIS: Swallowing difficulty R/T dysphagia, lethargy as evidenced by pt w/ h/o Parkinson's, able to tolerate puree texture diet. CURRENT DIET: Regular puree PO DIET RECOMMENDATIONS: REC LOW NA DIET / texture per FABRIC WORKER SUPERVISOR ADDITIONAL RECOMMENDATIONS: 1) FABRIC WORKER SUPERVISOR evaluation for safety of oral intake and appropriate diet texture -> pt lethargic 2) Nonoral feeding if fails swallow eval 3) Calibrated bedscale wt for accurate CBW 4) Monitor lytes, replete as needed 5) Add Ensure Enlive TID w/ meals (350 kcal/20g pro each) 6) WOUND CARE EVAL
--- NOTE | 2020-03-11 13:12 | History & Physical ---
History and Physical History & Physicial HISTORY OF PRESENT ILLNESS: This is a 80-year-old male. He has been declining in function due to Parkinson disease and dementia and had been on hospice care. He was brought into the emergency room by paramedics hypotensive and bradycardic after suffering a near syncopal episode on the toilet. A The patient apparently has had progressive difficulty with swallowing due to his cerebrovascular disease. Diet has been pureed and mixed with fluids. During this stay, family members have been trying to "keep up with his fluid intake." The patient has not had any fevers or chills, nausea, vomiting, diarrhea, or upper respiratory symptoms. There is no known COVID-19 exposure. In the emergency room, his initial blood pressure was 92/64 with a heart rate of 80 and respiratory rate of 17. Notes from paramedics found him to be bradycardic, however, in the field and he was given fluid en route. PAST MEDICAL HISTORY: As noted above. ALLERGIES: None known. MEDICATIONS: Not presently available. FAMILY HISTORY: Not known. SOCIAL HISTORY: Not known. REVIEW OF SYSTEMS: Full review of systems other than data noted above is not obtainable from the patient. PHYSICAL EXAMINATION: GENERAL: Thin, frail, in no acute distress. HEENT: Conjunctivae pink. Mucous membranes dry. NECK: Supple. LUNGS: Clear. CARDIAC: Regular, normal S1, S2 with no murmur. ABDOMEN: Soft. EXTREMITIES: Poor capillary refill. No edema. LABORATORY DATA: White count 9, hemoglobin 10. Lactate normal. Urinalysis with 0 to 2 white cells, 20 to 30 red cells. Sodium 137, potassium 3.9, bicarb 28, BUN 15, creatinine 0.9. Glucose 101. Magnesium 2.1. Albumin 2.9. Troponin 0.011. Pro-natriuretic peptide 273. Electrocardiogram with sinus rhythm, right bundle-branch block. IMPRESSION: 1. Syncope. 2. Parkinson's disease 3. Dementia RECOMMENDATION: 1. Volume resuscitation with IV fluids. 2. Aspiration precautions. 3. Cardiac monitoring. 4. Thyroid panel. 5. Followup troponin level. Velma Dacosta Omar Syed MD Mar 11, 2020 13:12
--- NOTE | 2020-03-11 13:33 | NUR ---
Received a call from Patients son. Sina Awais Tena , Confirmed Patient is on Hospice Care at Home, under the services of [facility].
--- NOTE | 2020-03-11 14:17 | NUR ---
NURSE HAND-OFF REPORT: Important Events on Shift:2D echo ordered and waiting to be completed. Patient Status: Stable Diet: Puree Moist Pending Orders: Pending Results/Labs: Pending MD notification: Latest Vital Signs: Temperature 98.1 , Pulse 84 , B/P 129 /78 , Respiratory Rate 20 , O2 SAT 100 , Room Air, O2 Flow Rate 2.0 . Vital Sign Comment: Stable EKG Rhythm: Sr w/ 1st AVB SR w/ BBB Rhythm change?: N MD Notified?: Artem Sanders MD Response: Latest Watson Fall Score: 70 Fall Risk: High Risk Safety Measures: Call light Within Reach, Bed Alarm Zone 2, Side Rails Side Rails x2, Bed position Low and Locked. Fall Precautions: Yellow Socks Yellow Gown Patient Fall Education Report given to Hannah.
[2020-03-11 16:00] VITALS: BP 124/83
--- NOTE | 2020-03-11 16:54 | NUR ---
*-*DISCHARGE PLANNING*-* PATIENT HAS BEEN REFERRED TO: [facility] P: [phone]
--- NOTE | 2020-03-11 19:15 | NUR ---
NURSE NOTES: Received hand-off report from Hannah Cui RN. Patient is resting semi-fowlers, alert and oriented x0 (baseline), nonverbal, in stable condition, breathing is unlabored and even, steve 16 Fr patent and draining mary lou urine, skin is clean dry and intact, well-groomed, bed in lowest and locked position, urgent care physician assistant in place, bed alarm on, prescribed fluids running, right forearm 20g IV and right hand 20g IV are both intact, patent, clean, no redness, no infiltration noted, and flushing well. SCDs on bilateral lower legs.
--- NOTE | 2020-03-11 19:15 | NUR ---
NURSE HAND-OFF REPORT: Important Events on Shift:None Patient Status: Stable Diet: Regular puree moist Pending Orders: Pending Results/Labs: Pending MD notification: Latest Vital Signs: Temperature 98.4 , Pulse 85 , B/P 124 /83 , Respiratory Rate 20 , O2 SAT 100 , Room Air, O2 Flow Rate 2.0 . Vital Sign Comment: Stable EKG Rhythm: SR w/ 1st AVB Rhythm change?: N MD Notified?: Artem Sanders MD Response: Latest Watson Fall Score: 70 Fall Risk: High Risk Safety Measures: Call light Within Reach, Bed Alarm Zone 2, Side Rails Side Rails x2, Bed position Low and Locked. Fall Precautions: Yellow Socks Yellow Gown Patient Fall Education Report given to Tavon/TERESA.
[2020-03-11 20:00] VITALS: BP 118/63
[2020-03-12] VITALS: BP 152/75
--- NOTE | 2020-03-12 01:56 | Cardiology Progress Note ---
Subjective DATE OF SERVICE: Mar 11, 2020 No LOC No apparent distress Monitor: sinus with no bradycardia or sustained ectopy Troponin levels negative 2D Echo: Normal ejection fraction; degenerative AV disease without significant stenosis TSH normal Objective Last 24 Hour Vital Signs Date Time Temp Pulse Resp B/P (MAP) Pulse Ox O2 Delivery O2 Flow Rate FiO2 03/11/20 20:00 101 03/11/20 20:00 97.7 101 18 118/63 (81) 99 03/11/20 16:00 98.4 82 20 124/83 (97) 100 03/11/20 16:00 85 03/11/20 12:00 84 03/11/20 12:00 98.1 85 20 129/78 (95) 100 03/11/20 09:00 Room Air 03/11/20 08:00 92 03/11/20 08:00 97.9 91 20 132/74 (93) 99 03/11/20 04:00 99.3 99 16 129/74 (92) 99 03/11/20 04:00 99 ROS: unchanged from my evaluation of 03/10/20 HEENT: normal ENT inspection RHYTHM: NSR LUNGS: lungs clear bilaterally CARDIAC: normal rate, regular rhythm, normal S1 and S2 ABDOMEN: normal bowel sounds, soft, no organomegaly EXTREMITIES: No edema, other - Tremor Laboratory Tests Test 03/11/20 02:56 03/11/20 06:20 POC Whole Blood Glucose 95 MG/DL (74-106) White Blood Count 9.8 K/UL (4.8-10.8) Red Blood Count 3.55 M/UL (4.70-6.10) L Hemoglobin 10.2 G/DL (14.2-18.0) L Hematocrit 32.8 % (42.0-52.0) L Mean Corpuscular Volume 92 FL (80-99) Mean Corpuscular Hemoglobin 28.6 PG (27.0-31.0) Mean Corpuscular Hemoglobin Concent 31.0 G/DL (32.0-36.0) L Red Cell Distribution Width 13.9 % (11.6-14.8) Platelet Count 149 K/UL (150-450) L Mean Platelet Volume 7.6 FL (6.5-10.1) Neutrophils (%) (Auto) 70.7 % (45.0-75.0) Lymphocytes (%) (Auto) 18.3 % (20.0-45.0) L Monocytes (%) (Auto) 8.6 % (1.0-10.0) Eosinophils (%) (Auto) 1.3 % (0.0-3.0) Basophils (%) (Auto) 1.0 % (0.0-2.0) Sodium Level 141 MMOL/L (136-145) Potassium Level 4.0 MMOL/L (3.5-5.1) Chloride Level 108 MMOL/L (98-107) H Carbon Dioxide Level 27 MMOL/L (21-32) Anion Gap 6 mmol/L (5-15) Blood Urea Nitrogen 10 mg/dL (7-18) Creatinine 0.8 MG/DL (0.55-1.30) Estimat Glomerular Filtration Rate > 60 mL/min (>60) Glucose Level 84 MG/DL (74-106) Calcium Level 8.5 MG/DL (8.5-10.1) Total Bilirubin 0.3 MG/DL (0.2-1.0) Aspartate Amino Transf (AST/SGOT) 22 U/L (15-37) Alanine Aminotransferase (ALT/SGPT) 21 U/L (12-78) Alkaline Phosphatase 97 U/L (46-116) Troponin I 0.019 ng/mL (0.000-0.056) Total Protein 6.6 G/DL (6.4-8.2) Albumin 2.9 G/DL (3.4-5.0) L Globulin 3.7 g/dL Albumin/Globulin Ratio 0.8 (1.0-2.7) L Thyroid Stimulating Hormone (TSH) 0.981 uiU/mL (0.358-3.740) Microbiology Date/Time Source Procedure Growth Status 03/10/20 15:00 Nasopharynx SARS-CoV-2 RdRp Gene Assay - Final Complete Assessment/Plan Assessment/Plan Syncopal episode likely due to hypovolemia, bradycardia, and possibly aspiiration Bradycardia - transient and without recurrence Parkinson's Disease Dysphagia Maintain adequate hydration Aspiration prec No additional CV studies planned Дмитрий Taylor MD Mar 12, 2020 01:56
[2020-03-12 04:00] VITALS: BP 157/90
--- NOTE | 2020-03-12 07:00 | NUR ---
NURSE HAND-OFF REPORT: Important Events on Shift: Blood clots noted in steve bag, platelets were 149, chloride was 108, endorsed. Patient Status: stable condition, full code Diet: regular, pureed, moist, 1:1 assist Pending Orders: Pending Results/Labs: Pending MD notification: Latest Vital Signs: Temperature 98.9 , Pulse 90 , B/P 157 /90 , Respiratory Rate 16 , O2 SAT 96 , Room Air, O2 Flow Rate 2.0 . Vital Sign Comment: EKG Rhythm: SR with PVCs Rhythm change?: N Notified?: N -Dr. Tommy VARELA Response: Latest Watson Fall Score: 95 Fall Risk: High Risk Safety Measures: Call light Within Reach, Bed Alarm Zone 2, Side Rails Side Rails x2, Bed position Low and Locked. Fall Precautions: Yellow Socks Yellow Gown Patient Fall Education Report given to TERESA Bach.
--- NOTE | 2020-03-12 07:00 | NUR ---
NURSE NOTES: Received report from Tavon/RN. Patient in bed, resting comfortably, laying semi-quinn. On room air. No distress or SOB noted at this time. IV on right FA 20G, running NS @ 75ml/hr, and right hand 20G SL, patent and clean. Bed in the lowest position and locked, call light within reach, side rails up X3.
[2020-03-12 08:00] VITALS: BP 170/89
[2020-03-12] MEDS: Memantine 10mg tab ORAL SCH (09:32)
[2020-03-12] MEDS: Aspirin EC 81mg tab ORAL SCH (09:32)
--- NOTE | 2020-03-12 10:30 | NUR ---
NURSE NOTES: Contacted Dr Sanders regarding patient having blood in his steve catheter and the platelets count was 149, waiting for orders.
--- NOTE | 2020-03-12 11:45 | Pulmonology Progress Note ---
Subjective Interval Events: None new Constitutional: Reports: no symptoms HEENT: Repors: no symptoms Respiratory: Reports: no symptoms Allergies: Coded Allergies: No Known Allergies (Unverified , 08/11/15) Objective Last 24 Hour Vital Signs Date Time Temp Pulse Resp B/P (MAP) Pulse Ox O2 Delivery O2 Flow Rate FiO2 03/12/20 08:00 87 03/12/20 08:00 96.7 60 19 170/89 (116) 92 03/12/20 04:00 98.9 90 16 157/90 (112) 96 03/12/20 04:00 90 03/12/20 00:00 87 03/12/20 00:00 99.0 87 19 152/75 (100) 97 03/11/20 21:00 Room Air 03/11/20 20:00 101 03/11/20 20:00 97.7 101 18 118/63 (81) 99 03/11/20 16:00 98.4 82 20 124/83 (97) 100 03/11/20 16:00 85 03/11/20 12:00 84 03/11/20 12:00 98.1 85 20 129/78 (95) 100 Intake and Output 03/11/20 03/12/20 19:00 07:00 Intake Total 200 ml Output Total 400 ml 1000 ml Balance -400 ml -800 ml Intake Oral 200 ml Output Urine Total 400 ml 1000 ml # Voids 1 # Bowel Movements 2 1 General Appearance: no acute distress Respiratory: chest wall non-tender Cardiovascular: normal peripheral pulses, normal rate Microbiology Date/Time Source Procedure Growth Status 03/10/20 15:10 Blood Blood Culture - Preliminary NO GROWTH AFTER 24 HOURS Resulted 03/10/20 15:00 Blood Blood Culture - Preliminary NO GROWTH AFTER 24 HOURS Resulted 03/10/20 15:00 Nasopharynx SARS-CoV-2 RdRp Gene Assay - Final Complete Current Medications Medications (Trade) Dose Ordered Sig/Hao Route PRN Reason Start Time Stop Time Status Last Admin Dose Admin Aspirin (Ecotrin) 81 mg DAILY ORAL 03/11/20 09:00 04/25/20 08:59 03/12/20 09:32 Atorvastatin Calcium (Lipitor) 10 mg BEDTIME ORAL 03/10/20 21:00 06/08/20 20:59 03/11/20 20:17 Docusate Sodium (Colace) 100 mg DAILYPRN PRN ORAL Constipation 03/10/20 20:30 04/09/20 20:29 Memantine (Namenda) 10 mg DAILY ORAL 03/11/20 09:00 04/10/20 08:59 03/12/20 09:32 Polyethylene Glycol (Miralax) 17 gm DAILYPRN PRN ORAL Constipation 03/10/20 20:30 04/09/20 20:29 Sodium Chloride 1,000 ml @ 75 mls/hr [id number] IV 03/10/20 21:30 04/09/20 21:29 03/11/20 23:57 Assessment/Plan Assessment/Plan IMPRESSION: 1. Syncope. 2. Parkinson's disease 3. Dementia RECOMMENDATION: Dc home with hospice Velma Dacosta Omar Syed MD Mar 12, 2020 11:45
[2020-03-12 12:00] VITALS: BP 140/74
--- NOTE | 2020-03-12 12:24 | NUR ---
DISCHARGE PLANNING PATIENT WAS PREVIOSLY ON SERVICE WITH "[facility]" BUT THEY ARE NOT SURE IF THEY CAN RESUME CARE PATIENT HAS BEEN REFERRED TO [facility] CONTACT JENN T: [phone] JENN HAS BEEN TRYING TO GET IN TOUCH WITH SON Addendum: 03/12/20 at 1229 by WALTER IRWIN LVN LVN RECEIVED CALL FROM JENN STATING THEY CANNOT ACCEPT THIS PATIENT TO THEIR HOSPICE AND PATIENT WILL HAVE TO RESUME CARE WITH [facility] Addendum: 03/12/20 at 1358 by WALTER IRWIN LVN LVN FAXED DISCHARGE NOTIFICATION
--- NOTE | 2020-03-12 13:40 | NUR ---
INSURANCE DISCHARGE NOTIFICATION FAXED TO JAQU[facility] Holland: [phone]
--- NOTE | 2020-03-12 14:46 | NUR ---
NURSE NOTES: pt with steve catheter and for discharge, spoke with Dr Sanders and stated to leave the steve cath on discharge.
--- NOTE | 2020-03-12 15:44 | NUR ---
NURSE NOTES: son insisting to take the steve out, according to him pt is no longer on hospice status and steve catheter need to be out, notified Dr Robles by phone. Addendum: 03/12/20 at 1625 by YAEL AWAN RN dr robles stated dc steve catheter, it fine to dc f/c.
--- NOTE | 2020-03-12 15:48 | Cardiology Progress Note ---
Subjective DATE OF SERVICE: Mar 12, 2020 No LOC No apparent distress Monitor: sinus with no bradycardia or sustained ectopy Troponin levels negative 2D Echo: Normal ejection fraction; degenerative AV disease without significant stenosis TSH normal Objective Last 24 Hour Vital Signs Date Time Temp Pulse Resp B/P (MAP) Pulse Ox O2 Delivery O2 Flow Rate FiO2 03/12/20 12:00 98.2 93 21 140/74 (96) 98 03/12/20 12:00 89 03/12/20 09:00 Room Air 03/12/20 08:00 87 03/12/20 08:00 96.7 60 19 170/89 (116) 92 03/12/20 04:00 98.9 90 16 157/90 (112) 96 03/12/20 04:00 90 03/12/20 00:00 87 03/12/20 00:00 99.0 87 19 152/75 (100) 97 03/11/20 21:00 Room Air 03/11/20 20:00 101 03/11/20 20:00 97.7 101 18 118/63 (81) 99 03/11/20 16:00 98.4 82 20 124/83 (97) 100 03/11/20 16:00 85 ROS: unchanged from my evaluation of 03/10/20 HEENT: normal ENT inspection RHYTHM: NSR LUNGS: lungs clear bilaterally CARDIAC: normal rate, regular rhythm, normal S1 and S2 ABDOMEN: normal bowel sounds, soft, no organomegaly EXTREMITIES: No edema, other - Tremor Microbiology Date/Time Source Procedure Growth Status 03/10/20 15:10 Blood Blood Culture - Preliminary NO GROWTH AFTER 24 HOURS Resulted 03/10/20 15:00 Blood Blood Culture - Preliminary NO GROWTH AFTER 24 HOURS Resulted 03/10/20 15:00 Nasopharynx SARS-CoV-2 RdRp Gene Assay - Final Complete Assessment/Plan Assessment/Plan Syncopal episode likely due to hypovolemia, bradycardia, and possibly aspiiration Bradycardia - transient and without recurrence Parkinson's Disease Dysphagia Hypertension Maintain adequate hydration by po route Would not initiate add'l antiHTN rx - due to increased orthostatic risk Aspiration prec No additional CV studies planned Дмитрий Taylor MD Mar 12, 2020 15:48
--- NOTE | 2020-03-12 16:30 | NUR ---
NURSE NOTES: ambulance came and pt was picked up, heplock removed, tele monitor was out, steve was out son aware pt left in stable condition.
--- NOTE | 2020-03-14 13:29 | Discharge Summary ---
Discharge Summary Discharge Summary _ DATE OF ADMISSION: 03/10/2020 DATE OF DISCHARGE: 03/12/2020 DISCHARGED BY: Dr. Erick Sanders CONSULTANTS: Dr. Дмитрий Price BRIEF HOSPITAL COURSE: Patient is a 80-year-old male. He has been declining in function due to Parkinson's disease and dementia and has been in hospice care. He was brought into the emergency room by paramedics due to hypotension and bradycardia after suffering a near syncopal episode on the toilet. Patient also had progressive difficulty with swallowing due to his cerebrovascular disease. Diet has been pured and mixed with fluids. Patient did not have any fever, chills, nausea, vomiting, diarrhea or upper respiratory symptoms. There is no known COVID-19 exposure. Upon evaluation at ED, blood pressure was 192/64, heart rate 80. He was afebrile and was saturating 100% on room air. Blood work did not show any leukocytosis. Hemoglobin and hematocrit were stable. Electrolytes were normal. Troponin was 0.011. proBNP 273. Urinalysis showed negative leukocyte esterase, 20-30 urine RBC, 0-2 urine WBC. EKG was in normal sinus rhythm with no acute changes. Chest x-ray did not show any acute disease. COVID-19 test was negative. Blood pressure improved after fluid hydration. Patient became more alert. He was then admitted for evaluation of syncope. He was admitted to monitored floor. He underwent cardiac evaluation. He was given volume resuscitation. He was placed on aspirin shunt precautions. Patient has vasovagal E mediated syncopal episode due to multiple factors including hypovolemia, orthostasis, component of conduction system disease and autonomic dysfunction. On the monitor, patient was in sinus with no bradycardia or sustained ectopy. Echocardiogram done showed normal ejection fraction; degenerative AV disease without significant stenosis. Thyroid function was normal. Troponin levels were negative x2. He was encouraged adequate hydration by p.o. route. Blood pressure improved. Per carton wrapper, would not initiate additional antihypertensive regimen due to increased orthostatic risk. Patient was cleared for discharge home with hospice. FINAL DIAGNOSES: Syncopal episode likely due to hypovolemia, bradycardia and possible aspiration Bradycardia transient and without recurrence Parkinson's disease Dysphasia Hypertension Dementia DISPOSITION: Patient was discharged home with hospice. DISCHARGE MEDICATIONS: Refer to Discharge Medication List. DISCHARGE INSTRUCTIONS: Follow-up in a week. I have been assigned to complete a discharge summary on this account, I was not involved with the patient's management.--SUDARSHAN Ramírez Jacqueline Robles NP Mar 14, 2020 13:29
--- NOTE | 2020-03-14 22:06 | CDS Physician Query ---
Clarification is required for compliance, coding accuracy, and to reflect severity of illness for this patient Dear Dr. Nick Sanders M.D. Date: 03/13/2020 CDI/CDS Name: Josemanuel Torres Clinical Documentation Statement: "80-year-old male has been declining in function due to Parkinson disease and dementia and had been on hospice care. He was brought into the emergency room by paramedics hypotensive and bradycardic after suffering a near syncopal episode on the toilet." IMPRESSION: Syncope, Parkinson's disease, Dementia [H&P Nick Sanders M.D. ] NUTRITION DIAGNOSIS: Swallowing difficulty R/T dysphagia, lethargy as evidenced by pt w/ h/o Parkinson's, able to tolerate puree texture diet. Needs based on Underweight, wound [ Nutrition ASSESSMENT Jud Shaw, RD 03/11] Clinical Finding Show: BMI: 19.8 kg/m2 LAB (03/10 ) : Chem: Albumin 2.9 [3.4-5.0], Calcium 8.7 [ 8.5-10.1], Lymphocytes ; 1125 Please select the most appropriate option: [] Protein/Calorie Malnutrition [] Mild [] Moderate [] Severe [] Other [] Unable to determine [] Not Applicable Present on Admission: [] Yes [] No [] Clinically Undetermined Physician signature Date Please also document in your Progress Notes and/or Discharge Summary and indicate if the condition was present on admission. RACHAELD
== END 2020-03-12 16:00 | disposition hospice, home (50) | DRG 641 ==
LOC: EDBD 14:41 → EMR 15:27 → 2E 17:55 → EDBEDREQ 18:59
DX: E86.1 Hypovolemia (principal); G90.8 Other disorders of autonomic nervous system; G20 Parkinson's disease; F02.80 Dementia in other diseases classified elsewhere, unspecified severity, without behavioral disturbance, psychotic disturbance, mood disturbance, and anxiety; R00.1 Bradycardia, unspecified; R13.10 Dysphagia, unspecified; I95.1 Orthostatic hypotension; I67.9 Cerebrovascular disease, unspecified; I10 Essential (primary) hypertension
CPT/HCPCS: 36415; 71045; 80053; 81003; 82550; 82962; 83605; 83690; 83735; 83880; 84443; 84484; 85025; 85610; 85730; 87040; 93005; 93306; 96360; 96361; 99291; J7030; U0002

== ENCOUNTER 2020-03-25 15:15 | Emergency (ER) | payer MEDICARE, OTHER ==
[2020-03-25] VITALS (7 sets, daily range): BP systolic 121–160; BP diastolic 71–98
[~2020-03-25 15:15] MED LIST changes: +ATORVASTATIN CA10 MG ORAL
[2020-03-25] MEDS ORDERED: Vancomycin 1gm vial IVPB ONE (16:15)
[2020-03-25] MEDS ORDERED: Cefepime 2gm ONE (16:15)
--- NOTE | 2020-03-25 19:21 | Emergency Room Report ---
History of Present Illness General Chief Complaint: Syncope Source: Family Member Present Illness HPI 80-year-old male history of Alzheimer's dementia on and off hospice care, presents with altered mental status, syncope prior to arrival patient was on the toilet, patient had a syncopal episode with rapid resolution, EMS was called to the site, patient was found to be hypotensive with a systolic blood pressure less than 90, patient was resuscitated with 1 L of fluids, with improvement in blood pressure, patient was transferred to the hospital for evaluation and treatment, no known aggravating relieving factors of his syncope severity is severe lasting a few minutes with resolution, unknown if he is having chest pain or shortness of breath Allergies: Coded Allergies: No Known Allergies (Unverified , 08/11/15) COVID-19 Screening Contact w/high risk pt: No Experienced COVID-19 symptoms?: No Patient History Limited by: medical condition - Alzheimer's dementia Past Medical History: see triage record Reviewed Nursing Documentation: PMH: Agreed Nursing Documentation-PMH Hx Asthma: Yes Hx Cancer: No Hx Gastrointestinal Problems: No Hx Dementia: Yes Hx Alzheimer's Disease: Yes Hx Parkinson's Disease: Yes Review of Systems All Other Systems: limited - Alzheimer's dementia Physical Exam Sp02 EP Interpretation: reviewed, normal General Appearance: mild distress, cachetic Head: normocephalic, atraumatic Eyes: bilateral eye PERRL, bilateral eye EOMI ENT: uvula midline, dry mucus membranes Neck: supple, thyroid normal, supple/symm/no masses Respiratory: lungs clear, no respiratory distress, no retraction, no accessory muscle use Cardiovascular #1: normal peripheral pulses, regular rate, rhythm, no edema, no gallop, no murmur Gastrointestinal: non tender, soft, no guarding, no rebound Musculoskeletal: normal inspection Neurologic: alert, responsive Psychiatric: mood/affect normal Skin: no rash, warm/dry Medical Decision Making Diagnostic Impression: Primary Impression: Syncope Qualified Codes: R55 - Syncope and collapse Additional Impressions: Sepsis Qualified Codes: A41.9 - Sepsis, unspecified organism UTI (urinary tract infection) Qualified Codes: N30.00 - Acute cystitis without hematuria ER Course Please note that this note was created retrospectively in the setting of downtime and unexpected enlisted aircrew/aerial observer/gunner shutdown of [employer] 80-year-old male presents with acute hypertension, syncopal episode prior to arrival, differential diagnosis includes sepsis, syncope, arrhythmia. chest x-ray negative, EKG shows normal sinus rhythm, urine is grossly positive for urinary tract infection. Patient started on cefepime and vancomycin initially we will narrow down his antibiotics to ceftriaxone. Patient accepted by Dr. Wang at OSH. Patient given 2L NS for his tachycardia and dehydration. Labs notable for leukocytosis of 14, and urine with many bacteria Rhythm Strip Diag. Results Rhythm Strip Time: 19:27 EP Interpretation: yes Rate: 113 Rhythm: other - Sinus tachycardia Chest X-Ray Diagnostic Results Chest X-Ray Diagnostic Results : Chest X-Ray Ordered: Yes # of Views/Limited/Complete: 1 View Indication: Chest Pain EP Interpretation: Yes Interpretation: no consolidation, no effusion, no pneumothorax, no acute cardiopulmonary disease Impression: No acute disease Electronically Signed by: Xavier Walters MD Disposition: SHORT-TERM HOSP Condition: Stable Referrals: NON PHYSICIAN (PCP) Evaluation Current Stage of Sepsis: Sepsis Possible Source: Genitourinary Focused Exam Allergies: Coded Allergies: No Known Allergies (Unverified , 08/11/15) Date Exam Occurred: Mar 25, 2020 Time Exam Occurred: 19:28 Vital Signs Normotensive, sinus tachycardia rate 115 Respiratory Exam: Clear Cardiovascular Exam: S1, S2, Tachycardia Capillary Refill: Less Than 2 Seconds Peripheral Pulse: Strong Pulse Location: Xavier Russell MD Mar 25, 2020 19:21
[2020-03-25] MEDS ORDERED: Vancomycin 1 GM in NS 275 ML IV ONE (19:30)
[2020-03-25] MEDS ORDERED: Cefepime HCl 2 GM in NS 110 ML IV ONE (19:30)
[2020-03-25 19:31] LABS: ANION GAP 6 mmol/L (5-15); BLOOD UREA NITROGEN 15 mg/dL (7-18); CARBON DIOXIDE 32 MMOL/L (21-32); CHLORIDE 104 MMOL/L (98-107); MEAN CORPUSCULAR VOLUME 92 FL (80-99); PLATELET COUNT 249 K/UL (150-450); POTASSIUM 4.4 MMOL/L (3.5-5.1); RED BLOOD COUNT 3.72 M/UL (4.70-6.10); RED CELL DISTRIBUTION WIDTH 13.7 % (11.6-14.8); SODIUM 142 MMOL/L (136-145); WHITE BLOOD COUNT 16.5 K/UL (4.8-10.8)
[2020-03-25 19:32] LABS: BASOPHILS % (AUTO) 0.8 % (0.0-2.0); CALCIUM 9.5 MG/DL (8.5-10.1); CREATININE 0.8 MG/DL (0.55-1.30); EOSINOPHILS % (AUTO) 0.8 % (0.0-3.0); LYMPHOCYTES % (AUTO) 10.1 % (20.0-45.0); NEUTROPHILS % (AUTO) 85.3 % (45.0-75.0); PHOSPHORUS 3.3 MG/DL (2.5-4.9)
[2020-03-25 19:35] LABS: BILIRUBIN, URINE NEGATIVE (NEGATIVE); COLOR,URINE PALE YELLOW; GLUCOSE, URINE (UA) NEGATIVE (NEGATIVE); KETONES,URINE NEGATIVE (NEGATIVE); PH,URINE 6.5 (4.5-8.0); PROTEIN,URINE NEGATIVE (NEGATIVE)
[2020-03-25 19:36] LABS: APPEARANCE,URINE CLOUDY; LEUKOCYTE ESTERASE ,URINE 3+ (NEGATIVE); NITRITE,URINE NEGATIVE (NEGATIVE); UROBILINOGEN,URINE NORMAL MG/DL (0.0-1.0)
[2020-03-25 21:51] LABS: ALANINE AMINOTRANSFERASE 27 U/L (12-78); ALBUMIN 3.2 G/DL (3.4-5.0); ALBUMIN/GLOBULIN RATIO 0.7 (1.0-2.7); ALKALINE PHOSPHATASE 113 U/L (46-116); ASPARTATE AMINO TRANSFERASE 28 U/L (15-37); BILIRUBIN,TOTAL 0.2 MG/DL (0.2-1.0)
--- NOTE | 2020-03-26 16:45 | Diagnostic Imaging Report ---
Indication: Shortness of breath Technique: One view of the chest Comparison: 03/10/2020 Findings: No acute infiltrates, effusions, or congestion. Tortuous calcified aorta. Normal heart size. Upper mediastinum unremarkable. No significant change Impression: No acute process.
--- NOTE | 2020-03-31 01:38 | Cardiology Report ---
APPROVED REPORT EKG Measurement Heart [id number] <Conclusion> Sinus rhythm with occasional premature ventricular complexes Nonspecific ST and T wave abnormality Abnormal ECG
== END 2020-03-25 23:25 | disposition short-term general hospital (02) ==
LOC: EMR 19:16
DX: A41.9 Sepsis, unspecified organism (principal); N30.00 Acute cystitis without hematuria; R55 Syncope and collapse; J45.909 Unspecified asthma, uncomplicated; G30.9 Alzheimer's disease, unspecified; F02.80 Dementia in other diseases classified elsewhere, unspecified severity, without behavioral disturbance, psychotic disturbance, mood disturbance, and anxiety; G20 Parkinson's disease
CPT/HCPCS: 36415; 71045; 80053; 81003; 83605; 83735; 84100; 84484; 85025; 87040; 87081; 87086; 87181; 93005; 96365; 96368; 99284; J3370; J7030; U0002

== ENCOUNTER 2020-04-29 15:58 | Inpatient (IN) | payer MEDICARE ==
[~2020-04-29] VITALS: Ht 177.8 cm; Wt 65.5 kg
--- NOTE | 2020-04-29 16:05 | Emergency Room Report ---
History of Present Illness General Source: EMS Present Illness HPI Patient is a 80-year-old male past medical history of Alzheimer's dementia, Parkinson's disease altered at baseline who was brought in from home by EMS for syncope. Per EMS who got the history from the son the son states that he moves his father out of bed every day to change it. He states that today when he did that he saw his father had momentary loss of consciousness. No head trauma. Patient was found to be hypotensive by EMS and was transported to the emergency room. Patient is nonverbal and unable to obtain further history at this time Allergies: Coded Allergies: No Known Allergies (Unverified , 08/11/15) COVID-19 Screening Contact w/high risk pt: No Experienced COVID-19 symptoms?: No Patient History Reviewed Nursing Documentation: PMH: Agreed; PSxH: Agreed Nursing Documentation-PMH Hx Hypertension: Yes Hx Asthma: Yes Hx Cancer: No Hx Gastrointestinal Problems: No Hx Dementia: Yes Hx Alzheimer's Disease: Yes Hx Parkinson's Disease: Yes Review of Systems All Other Systems: limited - Nonverbal Physical Exam Sp02 EP Interpretation: reviewed, normal General Appearance: cachetic, Chronically Ill Head: normocephalic, atraumatic ENT: dry mucus membranes Neck: full range of motion, supple, no meningismus Respiratory: chest non-tender, no respiratory distress, no accessory muscle use Cardiovascular #1: regular rate, rhythm Gastrointestinal: non tender, soft, no guarding, no rebound Rectal: deferred Musculoskeletal: other - Contracted bilateral upper extremities, left calf mildly edematous when compared to the right unable to elicit tenderness on palpation Psychiatric: other - Unable to assess as patient is nonverbal Skin: no rash Lymphatic: no adenopathy Procedures Critical Care Time Critical Care Time Total critical care time: Approximately 35 minutes. Due to a high probability of clinically significant, life threatening deterioration, the patient required my highest level of preparedness to intervene emergently and I personally spent this critical care time directly and personally managing the patient. This critical care time included obtaining a history; examining the patient; pulse oximetry; ordering and review of studies; arranging urgent treatment with development of a management plan; evaluation of patient's response to treatment; frequent reassessment; and, discussions with other providers.This critical care time was performed to assess and manage the high probability of imminent, life- threatening deterioration that could result in multi-organ failure. It was exclu sive of separately billable procedures and treating other patients and teaching time. Please see MDM section and the rest of the note for further information on patient assessment and treatment. Medical Decision Making Diagnostic Impression: Primary Impression: Syncope Additional Impressions: Leukocytosis Transient hypotension Anemia Sepsis ER Course Patient mildly tachycardic while in the emergency room. Patient has been normotensive on the emergency room. Patient has been pancultured. Chest x-ray demonstrates no acute cardiopulmonary pathology. Patient's urine demonstrates no evidence for UTI. Patient's lactate mildly elevated. Patient started on vancomycin as well as cefepime. Patient's COVID-19 PCR negative. Patient had elevated d-dimer of 21. With tachycardia and mild hypoxia on blood gas which could be attributed to C OPD. I scanned him to rule out PE. CT demonstrates no acute cardiopulmonary pathology. Patient will be transferred to [facility] for further treatment and evaluation. Laboratory Tests Test 04/29/20 16:02 04/29/20 16:04 04/29/20 16:06 04/29/20 18:00 White Blood Count 11.4 K/UL (4.8-10.8) H Red Blood Count 3.90 M/UL (4.70-6.10) L Hemoglobin 11.4 G/DL (14.2-18.0) L Hematocrit 35.7 % (42.0-52.0) L Mean Corpuscular Volume 92 FL (80-99) Mean Corpuscular Hemoglobin 29.1 PG (27.0-31.0) Mean Corpuscular Hemoglobin Concent 31.8 G/DL (32.0-36.0) L Red Cell Distribution Width 13.6 % (11.6-14.8) Platelet Count 199 K/UL (150-450) Mean Platelet Volume 7.6 FL (6.5-10.1) Neutrophils (%) (Auto) 72.9 % (45.0-75.0) Lymphocytes (%) (Auto) 17.2 % (20.0-45.0) L Monocytes (%) (Auto) 5.9 % (1.0-10.0) Eosinophils (%) (Auto) 2.6 % (0.0-3.0) Basophils (%) (Auto) 1.4 % (0.0-2.0) Prothrombin Time 11.6 SEC (9.30-11.50) H Prothrombin Time INR 1.1 (0.9-1.1) Activated Partial Thromboplast Time 23 SEC (23-33) D-Dimer 21.09 mg/L FEU (0.00-0.49) H Sodium Level 140 MMOL/L (136-145) Potassium Level 4.1 MMOL/L (3.5-5.1) Chloride Level 104 MMOL/L (98-107) Carbon Dioxide Level 28 MMOL/L (21-32) Anion Gap 8 mmol/L (5-15) Blood Urea Nitrogen 13 mg/dL (7-18) Creatinine 1.0 MG/DL (0.55-1.30) Estimated Glomerular Filtration Rate > 60 mL/min (>60) Glucose Level 130 MG/DL (74-106) H Lactic Acid Level 2.30 mmol/L (0.4-2.0) H Pending Calcium Level 9.3 MG/DL (8.5-10.1) Magnesium Level 2.4 MG/DL (1.8-2.4) Total Bilirubin 0.3 MG/DL (0.2-1.0) Aspartate Amino Transferase (AST) 24 U/L (15-37) Alanine Aminotransferase (ALT) 23 U/L (12-78) Alkaline Phosphatase 111 U/L (46-116) Troponin I 0.009 ng/mL (0.000-0.056) Pro-B-Type Natriuretic Peptide 295 pg/mL (0-125) H Total Protein 7.5 G/DL (6.4-8.2) Albumin 3.1 G/DL (3.4-5.0) L Globulin 4.4 g/dL Albumin/Globulin Ratio 0.7 (1.0-2.7) L Arterial Blood pH 7.407 (7.350-7.450) Arterial Blood Partial Pressure CO2 43.4 mmHg (35.0-45.0) Arterial Blood Partial Pressure O2 68.6 mmHg (75.0-100.0) L Arterial Blood HCO3 26.7 mmol/L (22.0-26.0) H Arterial Blood Oxygen Saturation 93.8 % (95-100) L Arterial Blood Base Excess 1.7 (-2-2) Sonny Test Positive Urine Color Pale yellow Urine Appearance Clear Urine pH 8 (4.5-8.0) Urine Specific [place] 1.010 (1.005-1.035) Urine Protein Negative (NEGATIVE) Urine Glucose (UA) Negative (NEGATIVE) Urine Ketones Negative (NEGATIVE) Urine Blood 4+ (NEGATIVE) H Urine Nitrite Negative (NEGATIVE) Urine Bilirubin Negative (NEGATIVE) Urine Urobilinogen Normal MG/DL (0.0-1.0) Urine Leukocyte Esterase Negative (NEGATIVE) Urine RBC 5-10 /HPF (0 - 0) H Urine WBC 0 /HPF (0 - 0) Urine Squamous Epithelial Cells None /LPF (NONE/OCC) Urine Bacteria None /HPF (NONE) Microbiology Date/Time Source Procedure Growth Status 04/29/20 17:49 Nasopharynx SARS-CoV-2 RdRp Gene Assay - Final Complete EKG Diagnostic Results Troponin ordered: Yes When was troponin ordered?: Apr 29, 2020 EKG Time: 16:05 EP Interpretation: Theodora Dc MD Rate: tachycardiac - 101 bpm Rhythm: other - Sinus tachycardia ST Segments: no acute changes Other Impression First-degree AV block ASA given to the pt in ED: No Rhythm Strip Diag. Results Rhythm Strip Time: 16:05 EP Interpretation: yes - Theodora Dc MD Rate: 102 bpm Rhythm: no PVC's, no ectopy, other - Sinus Tachycardia Chest X-Ray Diagnostic Results Chest X-Ray Diagnostic Results : Chest X-Ray Ordered: Yes # of Views/Limited/Complete: 1 View Indication: Shortness of Breath EP Interpretation: Yes Interpretation: no consolidation, no effusion, no pneumothorax, no acute cardiopulmonary disease Impression: No acute disease Electronically Signed by: Theodora Dc MD Disposition: HOME, SELF-CARE Condition: Stable Physician Consult: Dr. Lux at 1835. Will transfer to [facility] Additional Instructions: The patient was provided with discharge instructions, notified to follow-up with a primary care doctor and or specialist in the next 24-48 hours, and to return to the ED if they have worsening of their symptoms. Please note that this report is being documented using Par[employer] technology. This can lead to erroneous entry secondary to incorrect interpretation by the dictating instrument. Sepsis Event Note Evaluation Current Stage of Sepsis: Sepsis Possible Source: Pulmonary Focused Exam Allergies: Coded Allergies: No Known Allergies (Unverified , 08/11/15) Date Exam Occurred: Apr 29, 2020 Time Exam Occurred: 17:05 Laboratory Studies Laboratory Tests Test 04/29/20 16:02 04/29/20 16:04 04/29/20 16:06 White Blood Count 11.4 K/UL (4.8-10.8) H Red Blood Count 3.90 M/UL (4.70-6.10) L Hemoglobin 11.4 G/DL (14.2-18.0) L Hematocrit 35.7 % (42.0-52.0) L Mean Corpuscular Volume 92 FL (80-99) Mean Corpuscular Hemoglobin 29.1 PG (27.0-31.0) Mean Corpuscular Hemoglobin Concent 31.8 G/DL (32.0-36.0) L Red Cell Distribution Width 13.6 % (11.6-14.8) Platelet Count 199 K/UL (150-450) Mean Platelet Volume 7.6 FL (6.5-10.1) Neutrophils (%) (Auto) 72.9 % (45.0-75.0) Lymphocytes (%) (Auto) 17.2 % (20.0-45.0) L Monocytes (%) (Auto) 5.9 % (1.0-10.0) Eosinophils (%) (Auto) 2.6 % (0.0-3.0) Basophils (%) (Auto) 1.4 % (0.0-2.0) Prothrombin Time 11.6 SEC (9.30-11.50) H Prothromb Time International Ratio 1.1 (0.9-1.1) Activated Partial Thromboplast Time 23 SEC (23-33) D-Dimer 0.58 mg/L FEU (0.00-0.49) H Sodium Level 140 MMOL/L (136-145) Potassium Level 4.1 MMOL/L (3.5-5.1) Chloride Level 104 MMOL/L (98-107) Carbon Dioxide Level 28 MMOL/L (21-32) Anion Gap 8 mmol/L (5-15) Blood Urea Nitrogen 13 mg/dL (7-18) Creatinine 1.0 MG/DL (0.55-1.30) Estimat Glomerular Filtration Rate > 60 mL/min (>60) Glucose Level 130 MG/DL (74-106) H Lactic Acid Level 2.30 mmol/L (0.4-2.0) H Calcium Level 9.3 MG/DL (8.5-10.1) Magnesium Level 2.4 MG/DL (1.8-2.4) Total Bilirubin 0.3 MG/DL (0.2-1.0) Aspartate Amino Transf (AST/SGOT) 24 U/L (15-37) Alanine Aminotransferase (ALT/SGPT) 23 U/L (12-78) Alkaline Phosphatase 111 U/L (46-116) Troponin I 0.009 ng/mL (0.000-0.056) Pro-B-Type Natriuretic Peptide 295 pg/mL (0-125) H Total Protein 7.5 G/DL (6.4-8.2) Albumin 3.1 G/DL (3.4-5.0) L Globulin 4.4 g/dL Albumin/Globulin Ratio 0.7 (1.0-2.7) L Arterial Blood pH 7.407 (7.350-7.450) Arterial Blood Partial Pressure CO2 43.4 mmHg (35.0-45.0) Arterial Blood Partial Pressure O2 68.6 mmHg (75.0-100.0) L Arterial Blood HCO3 26.7 mmol/L (22.0-26.0) H Arterial Blood Oxygen Saturation 93.8 % (95-100) L Arterial Blood Base Excess 1.7 (-2-2) Sonny Test Positive Urine Color Pale yellow Urine Appearance Clear Urine pH 8 (4.5-8.0) Urine Specific [place] 1.010 (1.005-1.035) Urine Protein Negative (NEGATIVE) Urine Glucose (UA) Negative (NEGATIVE) Urine Ketones Negative (NEGATIVE) Urine Blood 4+ (NEGATIVE) H Urine Nitrite Negative (NEGATIVE) Urine Bilirubin Negative (NEGATIVE) Urine Urobilinogen Normal MG/DL (0.0-1.0) Urine Leukocyte Esterase Negative (NEGATIVE) Urine RBC Pending Urine WBC Pending Urine Squamous Epithelial Cells Pending Urine Bacteria Pending Vital Signs Last 24 Hour Vital Signs Date Time Temp Pulse Resp B/P (MAP) Pulse Ox O2 Delivery O2 Flow Rate FiO2 04/29/20 16:15 97.2 89 17 137/74 97 Room Air 04/29/20 15:58 97.2 94 18 68/43 (51) 98 Room Air Respiratory Exam: Rhonchi Cardiovascular Exam: Tachycardia Capillary Refill: Less Than 2 Seconds Peripheral Pulse: Theodora Atkinson M.D. Apr 29, 2020 16:05
[2020-04-29 16:15] VITALS: BP 137/74
[2020-04-29 16:20] LABS: BASOPHILS % (AUTO) 1.4 % (0.0-2.0); EOSINOPHILS % (AUTO) 2.6 % (0.0-3.0); HEMATOCRIT 35.7 % (42.0-52.0); HEMOGLOBIN 11.4 G/DL (14.2-18.0); LYMPHOCYTES % (AUTO) 17.2 % (20.0-45.0); MEAN CORPUSCULAR VOLUME 92 FL (80-99); MONOCYTES % (AUTO) 5.9 % (1.0-10.0); NEUTROPHILS % (AUTO) 72.9 % (45.0-75.0); PLATELET COUNT 199 K/UL (150-450); RED CELL DISTRIBUTION WIDTH 13.6 % (11.6-14.8); WHITE BLOOD COUNT 11.4 K/UL (4.8-10.8)
[2020-04-29 16:47] LABS: APPEARANCE,URINE CLEAR; BILIRUBIN, URINE NEGATIVE (NEGATIVE); COLOR,URINE PALE YELLOW; GLUCOSE, URINE (UA) NEGATIVE (NEGATIVE); KETONES,URINE NEGATIVE (NEGATIVE); LEUKOCYTE ESTERASE ,URINE NEGATIVE (NEGATIVE); NITRITE,URINE NEGATIVE (NEGATIVE); PH,URINE 8 (4.5-8.0); PROTEIN,URINE NEGATIVE (NEGATIVE); UROBILINOGEN,URINE NORMAL MG/DL (0.0-1.0)
[2020-04-29 16:52] LABS: ANION GAP 8 mmol/L (5-15); BLOOD UREA NITROGEN 13 mg/dL (7-18); CALCIUM 9.3 MG/DL (8.5-10.1); CARBON DIOXIDE 28 MMOL/L (21-32); CHLORIDE 104 MMOL/L (98-107); POTASSIUM 4.1 MMOL/L (3.5-5.1); SODIUM 140 MMOL/L (136-145)
--- NOTE | 2020-04-29 16:52 | NUR ---
ED Nurse Note: Pt brought in by ambulance from home s/p fall. Pt had fall from chair witnessed by son. Son states there is no head injury. Pt is a&ox0, not speaking. Pt is awake and responsive to pauinful stimuli. Blood pressure per ambualnce 68/43. Current blood pressure 130/78. Labs drawn and sent.
[2020-04-29 17:00] LABS: INR 1.1 (0.9-1.1)
[2020-04-29] MEDS ORDERED: Vancomycin 1 GM in NS 275 ML IVPB ONE (17:00)
[2020-04-29] MEDS ORDERED: Cefepime HCl 2 GM in D5W 55 ML IVPB ONE (17:00)
[2020-04-29 17:02] LABS: ALANINE AMINOTRANSFERASE 23 U/L (12-78); ALBUMIN 3.1 G/DL (3.4-5.0); ALBUMIN/GLOBULIN RATIO 0.7 (1.0-2.7); ALKALINE PHOSPHATASE 111 U/L (46-116); ASPARTATE AMINO TRANSFERASE 24 U/L (15-37); BILIRUBIN,TOTAL 0.3 MG/DL (0.2-1.0)
--- NOTE | 2020-04-29 17:11 | Diagnostic Imaging Report ---
Indication: Chest pain Technique: One view of the chest Comparison: none Findings: No acute infiltrates, effusions, or congestion. Tortuous calcified aorta. Normal heart size. Upper mediastinum unremarkable. No significant change Impression: No acute process.
[2020-04-29] MEDS ORDERED: Omnipaque 350 100ml vial INJ PRN (17:15)
--- NOTE | 2020-04-29 18:23 | Diagnostic Imaging Report ---
EXAM: CT Angiography Chest With Intravenous Contrast CLINICAL HISTORY: SOB TECHNIQUE: Axial computed tomographic angiography images of the chest with intravenous contrast. CTDI is 21.7 mGy and DLP is 184.8 mGy-cm. One or more of the following dose reduction techniques were used: automated exposure control, adjustment of the mA and/or kV according to patient size, use of iterative reconstruction technique. MIP reconstructed images were created and reviewed. COMPARISON: 04/29/2020, plain film evaluation of the chest. FINDINGS: Pulmonary arteries: No central pulmonary embolism noted. No peripheral pulmonary embolism is noted. Aorta: Atherosclerotic disease of the thoracic aorta. Atherosclerotic disease of the abdominal aorta. No thoracic aortic aneurysm. Lungs: Mild to moderate COPD. Subsegmental atelectasis posteriorly in the right mid lower lung zones. Subsegmental atelectasis posteriorly in the left mid lower lung zones. The airways patent. No mass. Pleural space: Unremarkable. No significant effusion. No pneumothorax. Heart: Unremarkable. No cardiomegaly. No significant pericardial effusion. No evidence of RV dysfunction. Thyroid: The thyroid gland is unremarkable. Bones/joints: No acute fracture. No dislocation. Soft tissues: Mild to moderate anasarca. Lymph nodes: Unremarkable. No enlarged lymph nodes. Liver: Diffuse fatty infiltration of the liver is noted. Hepatic hypodensities are noted, the largest of which appears to represent simple cyst. IMPRESSION: 1. No central or peripheral pulmonary embolism detected. 2. Atherosclerotic disease.
[2020-04-29 18:57] VITALS: BP 134/76
[2020-04-29 19:30] VITALS: BP 176/99
[2020-04-29 20:43] VITALS: BP 168/84
--- NOTE | 2020-04-29 21:29 | NUR ---
Nurse Note: Report given to TERESA Davies for continuity of care. Pt remains at baseline condition from shift change. Pt a&ox0, responds to pain. Pt on RA, contracted on uppper extremities. Pt incontent. No skin breakdown noted. SLIV RT upper arm. All safety measures met.
[2020-04-29] MEDS ORDERED: Labetalol 5mg/ml 20ml vial IV ONE (21:45)
--- NOTE | 2020-04-29 22:10 | NUR ---
NURSE NOTES: Received report from TERESA Young from ER. Admitted pt to room 203-2 via gurney. Pt eyes open, awake non-verbal, responds to localized pain. No resp distress noted. court recording monitor placed. IV 18G on right upper arm & 22G on Right AC saline locked. Body check done, oriented to room & unit. Bed in low position & locked. Side rails up x3. Bed alarm on. Call light with in reach. Will call for admitting orders.
--- NOTE | 2020-04-29 23:00 | NUR ---
NURSE NOTES: Patient received from Keke MOORE. Patient in stable condition. Called Dr Jones for orders, verified and carried out. Will continue plan o care.
[2020-04-30] VITALS: BP 148/86
[2020-04-30 04:00] VITALS: BP 125/81
--- NOTE | 2020-04-30 07:53 | NUR ---
NURSE HAND-OFF REPORT: Important Events on Shift:[Admission] Patient Status: [Stable] Diet: [Cardiac Puree nectar thick liquid] Pending Orders: [] Pending Results/Labs:[] Pending MD notification:[] Latest Vital Signs: Temperature 97.9 , Pulse 75 , B/P 125 /81 , Respiratory Rate 18 , O2 SAT 98 , Room Air, O2 Flow Rate . Vital Sign Comment: [] EKG Rhythm: Sinus Rhythm Rhythm change?: N MD Notified?: - MD Response: Latest Watson Fall Score: 75 Fall Risk: High Risk Safety Measures: Call light Within Reach, Bed Alarm Zone 1, Side Rails Side Rails x3, Bed position Low and Locked. Fall Precautions: Yellow Socks Yellow Gown Door Sign Patient Fall Education Report given to [Ethel MOORE].
[2020-04-30 08:00] VITALS: BP 142/85
--- NOTE | 2020-04-30 08:00 | NUR ---
NURSE NOTES: Received report from TERESA Navarro. Observed pt sleeping, no s/sx of acute distress, breathing even and unlabored in 2L NC. Per Ramon, Dr Sanders will come to see the pt today, pt newly admitted last night. Bed on lowest position, call light within reach. Will continue plan of care.
[2020-04-30] MEDS ORDERED: Docusate 100mg cap ORAL SCH (09:00)
[2020-04-30] MEDS: Cyclobenzaprine 10mg Tab ORAL SCH ×2 (09:27→17:15)
[2020-04-30] MEDS: Memantine 10mg tab ORAL SCH (09:27)
[2020-04-30] MEDS: Aspirin Baby 81mg ORAL SCH (09:27)
[2020-04-30] MEDS ORDERED: Miralax 17gm pkt ORAL PRN (11:45)
[2020-04-30] MEDS ORDERED: Docusate 100mg cap ORAL PRN (11:45)
[2020-04-30 12:00] VITALS: BP 138/79
--- NOTE | 2020-04-30 12:15 | History and Physical Report ---
DATE OF ADMISSION: 04/29/2020 REASON FOR ADMISSION: Altered mental status. HISTORY OF PRESENT ILLNESS: This is a 80-year-old male with history of advanced Parkinson's and Alzheimer's dementia. He was brought to the hospital by his family via paramedics for apparent syncope and altered mental status. The patient's son reports that the patient had loss of consciousness. There was no head trauma. The patient was hypotensive in the ER and brought to the hospital. Currently, the patient is nonverbal. This morning, he is more alert and responsive. PAST MEDICAL HISTORY: Notable for hypertension, asthma, dementia, Parkinson's. MEDICATIONS: His list of home medications reviewed and reconciled in chart. ALLERGIES: None reported. CODE STATUS: Full. REVIEW OF SYSTEMS: Not obtainable. PHYSICAL EXAMINATION: GENERAL: Reveals a 80-year-old male. VITAL SIGNS: Blood pressure 140/80, heart rate 85, respiratory rate 18, afebrile. HEENT: Unremarkable. CHEST: Diminished breath sounds bilaterally with normal heart sounds. ABDOMEN: Soft. EXTREMITIES: There is no edema. NEUROLOGIC: Nonfocal. The patient has mild upper extremity contractures. He has rigidity. LABORATORY DATA: Lab testing shows white count 11.4, hemoglobin 11.4. Chemistries are normal. Glucose 130. Lactic acid 2.3. Coags are negative except for D-dimer 21. ABG shows pH 7.40, pCO2 43, pO2 68. Urinalysis shows few pus cells. IMAGING STUDIES: X-ray chest was obtained, which shows clear lung pena bilaterally. The patient underwent a CT of the chest and thorax, there was no evidence of pulmonary embolism. IMPRESSION: 1. Altered mental status. 2. Hypotension, now resolved. 3. Parkinson's. 4. Dementia. DISCUSSION: Admitted to the hospital. We will provide fluid hydration, empiric antibiotics. Consult Cardiology. Continue home medications. We will follow carefully. Nick Sanders M.D. DR: Corinna JOB#: [id number] CC:
[2020-04-30] MEDS: NS w/KCl 20mEq 1000ml 1,000 ML IV SCH (14:04)
--- NOTE | 2020-04-30 15:45 | NUR ---
NURSE NOTES: REPORT GIVEN FROM AMANDA MIGUEL. RECEIVED PATIENT A/A/OX1, NONVERBAL. RESPONSE TO TACTILE STIMULI. KEPT HOB ELEVATED FOR ASPIRATION PRECAUTION. NO ACUTE RESP DISTRESS NOTED. KEPT BED IN THE LOWEST POSITION. SIDERAILS ARE UPX3. CALL LIGHT IS WITHIN REACH. BRAKES AND LOCK @ ALL TIMES. WILL CONT TO MONITOR
[2020-04-30 15:54] VITALS: BP 126/73
--- NOTE | 2020-04-30 16:20 | Cardiology Report ---
APPROVED REPORT EKG Measurement Heart [id number] CT 210P77 [id number] <Conclusion> Sinus tachycardia with 1st degree AV block Cannot rule out Inferior infarct, age undetermined Abnormal ECG
--- NOTE | 2020-04-30 16:36 | NUR ---
CASE MANAGEMENT:REVIEW 80YR OLD MALE BIBA CC; SYNCOPE SI: SEPSIS. HYPOTENSION 97.2 94 18 68/43 98% ON RA WBC+11.4 LACTIC ACID+2.3 IS: 1L NS BOLUS X2 IV VANCOMYCIN IV CEFEPIME CTA CHEST : TO TELEMETRY DCP: FROM HOME
--- NOTE | 2020-04-30 17:09 | Diagnostic Imaging Report ---
Indication: Left leg pain Technique: Grayscale and duplex images of the left lower extremity veins Comparison: None Findings: On the left, grayscale and duplex images demonstrate no evidence of intraluminal thrombus. Normal phasic Doppler waveforms, demonstrating normal augmentation response and no evidence of valvular insufficiency. Greater saphenous vein(s) and tibial veins are patent. Normal compressibility. Impression: Negative for evidence of lower extremity deep venous thrombosis on the left
--- NOTE | 2020-04-30 17:12 | NUR ---
INSURANCE CLINICALS/REVIEWS FAXED TO [employer] [facility] P:[phone] F:[phone]
[2020-04-30] MEDS: cefTRIAXone 1 GM in D5W 55 ML IVPB SCH (18:29)
--- NOTE | 2020-04-30 19:09 | NUR ---
NURSE HAND-OFF REPORT: Important Events on Shift:[1;1 FEED; IV ASSESSED FOR INFILTRATION, HOB ELEVATED FOR ASPIRATION, SKIN INTEGRITY ] Patient Status: [STABLE] Diet: [PUREED ] Pending Orders: [LABS] Pending Results/Labs:[IN AM] Pending MD notification:[] Latest Vital Signs: Temperature 98.7 , Pulse 81 , B/P 126 /73 , Respiratory Rate 20 , O2 SAT 100 , Room Air, O2 Flow Rate . Vital Sign Comment: [] EKG Rhythm: SR w/ 1st AVB Rhythm change?: N MD Notified?: - MD Response: Latest Watson Fall Score: 75 Fall Risk: High Risk Safety Measures: Call light Within Reach, Bed Alarm Zone 1, Side Rails Side Rails x3, Bed position Low and Locked. Fall Precautions: Yellow Socks Yellow Gown Door Sign Patient Fall Education Report given to [MILKA].
[2020-04-30] MEDS ORDERED: CYCLOBENZAPRINE10 MG ORAL (19:10)
--- NOTE | 2020-04-30 19:30 | NUR ---
NURSE NOTES: Report received from Joselyn MOORE. Patient is in bed responsive to tactile stimuli. No SOB or distress. Bed at lowest position locked with side rails up. Bed alarm activated. Call lightwith in reach. forger helper intact. Will continue with plan of care.
[2020-04-30 20:00] VITALS: BP 124/70
[2020-04-30] MEDS: Docusate 100mg cap ORAL SCH (21:31)
[2020-04-30] MEDS: Atorvastatin 20mg tab ORAL SCH (21:32)
[2020-04-30] MEDS: Heparin 5000 units/ml inj SUBQ SCH (21:33)
[2020-05-01] VITALS: BP 136/74
[2020-05-01 04:00] VITALS: BP 126/71
[2020-05-01 07:21] LABS: BASOPHILS % (AUTO) 0.9 % (0.0-2.0); EOSINOPHILS % (AUTO) 3.2 % (0.0-3.0); HEMATOCRIT 31.6 % (42.0-52.0); HEMOGLOBIN 10.2 G/DL (14.2-18.0); LYMPHOCYTES % (AUTO) 21.5 % (20.0-45.0); MEAN CORPUSCULAR VOLUME 88 FL (80-99); MONOCYTES % (AUTO) 9.2 % (1.0-10.0); NEUTROPHILS % (AUTO) 65.2 % (45.0-75.0); PLATELET COUNT 185 K/UL (150-450); WHITE BLOOD COUNT 7.1 K/UL (4.8-10.8)
[2020-05-01 07:33] LABS: ANION GAP 5 mmol/L (5-15); BLOOD UREA NITROGEN 12 mg/dL (7-18); CALCIUM 8.7 MG/DL (8.5-10.1); CARBON DIOXIDE 28 MMOL/L (21-32); CHLORIDE 107 MMOL/L (98-107); CREATININE 0.8 MG/DL (0.55-1.30); POTASSIUM 4.2 MMOL/L (3.5-5.1); SODIUM 140 MMOL/L (136-145)
--- NOTE | 2020-05-01 07:35 | NUR ---
NURSE HAND-OFF REPORT: Important Events on Shift:[] Patient Status: [Stable responsive to tactile stimuli] Diet: [Puree] Pending Orders: [] Pending Results/Labs:[] Pending MD notification:[] Latest Vital Signs: Temperature 98.4 , Pulse 84 , B/P 126 /71 , Respiratory Rate 18 , O2 SAT 98 , Room Air, O2 Flow Rate . Vital Sign Comment: [] EKG Rhythm: SR w/ 1st AVB PAC Rhythm change?: N MD Notified?: - MD Response: Latest Watson Fall Score: 75 Fall Risk: High Risk Safety Measures: Call light Within Reach, Bed Alarm Zone 1, Side Rails Side Rails x3, Bed position Low and Locked. Fall Precautions: Yellow Socks Yellow Gown Door Sign Patient Fall Education Report given to [TERESA Montejo].
--- NOTE | 2020-05-01 07:36 | NUR ---
NURSE NOTES: Received report from Jessi/TERESA. Observed patient asleep, lying semi-quinn's, resting comfortably. On 2L nasal canula, no acute distress/SOB noted, breathing evenly and unlabored. AAO x0, non-verbal. IV site patent and intact, NS W/20 mEq KCL running at 50cc/hr. Condom cath draining well to gravity. Bed in low position and locked, Call light within reach. Will continue plan of care.
[2020-05-01 08:00] VITALS: BP 172/97
[2020-05-01] MEDS ORDERED: Aspirin EC 81mg tab ORAL SCH (09:00)
[2020-05-01] MEDS ORDERED: Memantine 10mg tab ORAL SCH (09:00)
[2020-05-01] MEDS: Memantine 10mg tab ORAL SCH (09:40)
[2020-05-01] MEDS: Docusate 100mg cap ORAL SCH (09:40)
[2020-05-01] MEDS: Cyclobenzaprine 10mg Tab ORAL SCH ×2 (09:40→18:21)
[2020-05-01] MEDS: Heparin 5000 units/ml inj SUBQ SCH ×2 (09:41→21:02)
[2020-05-01] MEDS: Aspirin Baby 81mg ORAL SCH (09:41)
[2020-05-01] MEDS: NS w/KCl 20mEq 1000ml 1,000 ML IV SCH (09:42)
[2020-05-01 12:00] VITALS: BP 130/89
--- NOTE | 2020-05-01 14:11 | Pulmonology Progress Note ---
Subjective Interval Events: None new Constitutional: Reports: no symptoms HEENT: Repors: no symptoms Respiratory: Reports: no symptoms Cardiovascular: Reports: no symptoms Gastrointestinal/Abdominal: Reports: no symptoms Allergies: Coded Allergies: No Known Allergies (Unverified , 08/11/15) Objective Last 24 Hour Vital Signs Date Time Temp Pulse Resp B/P (MAP) Pulse Ox O2 Delivery O2 Flow Rate FiO2 05/01/20 12:00 99.3 66 20 130/89 (103) 93 05/01/20 12:00 95 05/01/20 09:00 Nasal Cannula 2.0 05/01/20 08:00 90 05/01/20 08:00 98.4 92 18 172/97 (122) 95 05/01/20 04:00 98.4 75 18 126/71 (89) 98 05/01/20 04:00 84 05/01/20 00:00 80 05/01/20 00:00 98.1 80 17 136/74 (94) 98 04/30/20 21:00 Room Air 04/30/20 20:00 98.2 79 17 124/70 (88) 95 04/30/20 20:00 78 04/30/20 16:00 81 04/30/20 15:54 98.7 83 20 126/73 (90) 100 Intake and Output 04/30/20 05/01/20 19:00 07:00 Intake Total 390 ml 200 ml Output Total 800 ml Balance 390 ml -600 ml Intake Oral 240 ml 200 ml IV Total 150 ml Output Urine Total 800 ml General Appearance: no acute distress HEENT: normocephalic Respiratory: chest wall non-tender, lungs clear Cardiovascular: normal peripheral pulses, normal rate Abdomen: normal bowel sounds Extremities: no cyanosis Microbiology Date/Time Source Procedure Growth Status 04/29/20 17:49 Nasopharynx SARS-CoV-2 RdRp Gene Assay - Final Complete 04/29/20 16:02 Blood Blood Culture - Preliminary NO GROWTH AFTER 24 HOURS Resulted 04/29/20 15:47 Blood Blood Culture - Preliminary NO GROWTH AFTER 24 HOURS Resulted Laboratory Tests 05/01/20 06:30: White Blood Count 7.1, Red Blood Count 3.60L, Hemoglobin 10.2L, Hematocrit 31.6L , Mean Corpuscular Volume 88, Mean Corpuscular Hemoglobin 28.4, Mean Corpuscular Hemoglobin Concent 32.4, Red Cell Distribution Width 13.0, Platelet Count 185, Mean Platelet Volume 7.3, Neutrophils (%) (Auto) 65.2, Lymphocytes (%) (Auto) 21.5, Monocytes (%) (Auto) 9.2, Eosinophils (%) (Auto) 3.2H, Basophils (%) (Auto) 0.9, Sodium Level 140, Potassium Level 4.2, Chloride Level 107, Carbon Dioxide Level 28, Anion Gap 5, Blood Urea Nitrogen 12, Creatinine 0.8, Estimat Glomerular Filtration Rate > 60, Glucose Level 88, Calcium Level 8.7 Current Medications Medications (Trade) Dose Ordered Sig/Hao Route PRN Reason Start Time Stop Time Status Last Admin Dose Admin Acetaminophen (Tylenol) 650 mg Q4H PRN ORAL Mild Pain (Pain Scale 1-3) 04/30/20 11:45 05/30/20 11:44 Aspirin (ASA) 81 mg DAILY ORAL 04/30/20 09:00 06/14/20 08:59 05/01/20 09:41 Atorvastatin Calcium (Lipitor) 20 mg BEDTIME ORAL 04/30/20 21:00 07/29/20 20:59 04/30/20 21:32 Ceftriaxone Sodium 1 gm/ Dextrose 55 ml @ 110 mls/hr Q24H IVPB 04/30/20 18:00 05/07/20 17:59 04/30/20 18:29 Cyclobenzaprine HCl (Flexeril) 10 mg BID ORAL 04/30/20 09:00 05/07/20 08:59 05/01/20 09:40 Dextrose (Dextrose 50%) 25 ml Q30M PRN IV Hypoglycemia 04/30/20 11:45 07/29/20 11:44 Dextrose (Dextrose 50%) 50 ml Q30M PRN IV Hypoglycemia 04/30/20 11:45 07/29/20 11:44 Docusate Sodium (Colace) 100 mg DAILYPRN PRN ORAL Constipation 04/30/20 11:45 05/30/20 11:44 Docusate Sodium (Colace) 100 mg EVERY 12 HOURS ORAL 04/30/20 21:00 05/30/20 20:59 05/01/20 09:40 Heparin Sodium (Porcine) (Heparin 5000 units/ml) 5,000 units EVERY 12 HOURS SUBQ 04/30/20 21:00 06/14/20 20:59 05/01/20 09:41 Iohexol (Omnipaque 350 100ml) 100 ml NOW PRN INJ Radiology Procedure 04/29/20 17:15 05/01/20 17:14 Memantine (Namenda) 10 mg DAILY ORAL 04/30/20 09:00 05/30/20 08:59 05/01/20 09:40 Polyethylene Glycol (Miralax) 17 gm DAILYPRN PRN ORAL Constipation 04/30/20 11:45 05/30/20 11:44 Potassium Chloride/Sodium Chloride 1,000 ml @ 50 mls/hr Q20H IV 04/30/20 13:00 05/30/20 12:59 05/01/20 09:42 Assessment/Plan Assessment/Plan IMPRESSION: 1. Altered mental status. 2. Hypotension, now resolved. 3. Parkinson's. 4. Dementia. DISCUSSION: Continue fluid hydration, empiric antibiotics. Seen by Cardiology. I will follow carefully. Velma Dacosta Omar Syed MD May 01, 2020 14:11
--- NOTE | 2020-05-01 14:53 | NUR ---
CASE MANAGEMENT:REVIEW SI;SEPSIS 99.3 92 20 172/97 93% 2L NC IS;HEPARIN SUBQ Q12 ROCEPHIN IV Q24 KCL IV Q20 ASA PO QD TELE STATUS DCP;FROM HOME
--- NOTE | 2020-05-01 14:57 | NUR ---
INSURANCE CLINICALS/REVIEWS FAXED TO [address] [facility] P:[phone] F:[phone]
[2020-05-01 16:00] VITALS: BP 141/83
[2020-05-01] MEDS: cefTRIAXone 1 GM in D5W 55 ML IVPB SCH (18:21)
--- NOTE | 2020-05-01 19:23 | NUR ---
NURSE HAND-OFF REPORT: Important Events on Shift:NA Patient Status: Stable Diet: Regular puree Pending Orders: NA Pending Results/Labs:NA Pending MD notification:NA Latest Vital Signs: Temperature 99.0 , Pulse 95 , B/P 141 /83 , Respiratory Rate 20 , O2 SAT 99 , Nasal Cannula, O2 Flow Rate 2.0 . Vital Sign Comment: Stable EKG Rhythm: Sinus Rhythm Rhythm change?: N MD Notified?: - MD Response: Latest Watson Fall Score: 75 Fall Risk: High Risk Safety Measures: Call light Within Reach, Bed Alarm Zone 1, Side Rails Side Rails x3, Bed position Low and Locked. Fall Precautions: Yellow Socks Yellow Gown Door Sign Patient Fall Education Report given to Conchis/RN.
--- NOTE | 2020-05-01 19:30 | NUR ---
NURSE NOTES: Received report from Nikia RN. Patient is asleep lying semi-quinn's, resting comfortably on 2L nasal canula 97%, no acute distress/SOB noted, breathing evenly and unlabored. Patient is alert Oriented x0 non-verbal. IV site on right upper arm 20G is patent and intact, NS W/20 mEq KCL running at 50cc/hr as ordered. Condom cath in place and draining well to gravity. Bed in low position and locked, Call light within reach. Will continue plan of care.
[2020-05-01 20:00] VITALS: BP 147/90
[2020-05-01] MEDS: Docusate 100mg/10ml Liq ORAL SCH (21:02)
[2020-05-01] MEDS: Atorvastatin 20mg tab ORAL SCH (21:02)
--- NOTE | 2020-05-01 22:07 | NUR ---
NURSE NOTES: Notified Dr. Sanders that patient Blood Pressure is 147/[address] Hess would not like to order medication at this time. will continue to monitor patient.
[2020-05-02] VITALS: BP 153/90
--- NOTE | 2020-05-02 03:44 | Cardiology Progress Note ---
Subjective DATE OF SERVICE: May 01, 2020 On IVF More alert BP parameters stabilized; no recurring hypotension Monitor: sinus with rare atrial ectopy Objective Last 24 Hour Vital Signs Date Time Temp Pulse Resp B/P (MAP) Pulse Ox O2 Delivery O2 Flow Rate FiO2 05/02/20 00:00 97.9 80 20 153/90 (111) 100 05/02/20 00:00 73 05/01/20 21:00 Nasal Cannula 2.0 05/01/20 20:00 97.9 87 20 147/90 (109) 97 05/01/20 20:00 88 05/01/20 16:00 99.0 101 20 141/83 (102) 99 05/01/20 16:00 95 05/01/20 12:00 99.3 66 20 130/89 (103) 93 05/01/20 12:00 95 05/01/20 09:00 Nasal Cannula 2.0 05/01/20 08:00 90 05/01/20 08:00 98.4 92 18 172/97 (122) 95 05/01/20 04:00 98.4 75 18 126/71 (89) 98 05/01/20 04:00 84 HEENT: normal ENT inspection RHYTHM: NSR, other - sinus arrhythmia LUNGS: lungs clear bilaterally CARDIAC: normal rate, regular rhythm, normal S1 and S2, systolic murmur - 1/6 systolic ejection ABDOMEN: normal bowel sounds, non tender, soft Laboratory Tests Test 05/01/20 06:30 White Blood Count 7.1 K/UL (4.8-10.8) Red Blood Count 3.60 M/UL (4.70-6.10) L Hemoglobin 10.2 G/DL (14.2-18.0) L Hematocrit 31.6 % (42.0-52.0) L Mean Corpuscular Volume 88 FL (80-99) Mean Corpuscular Hemoglobin 28.4 PG (27.0-31.0) Mean Corpuscular Hemoglobin Concent 32.4 G/DL (32.0-36.0) Red Cell Distribution Width 13.0 % (11.6-14.8) Platelet Count 185 K/UL (150-450) Mean Platelet Volume 7.3 FL (6.5-10.1) Neutrophils (%) (Auto) 65.2 % (45.0-75.0) Lymphocytes (%) (Auto) 21.5 % (20.0-45.0) Monocytes (%) (Auto) 9.2 % (1.0-10.0) Eosinophils (%) (Auto) 3.2 % (0.0-3.0) H Basophils (%) (Auto) 0.9 % (0.0-2.0) Sodium Level 140 MMOL/L (136-145) Potassium Level 4.2 MMOL/L (3.5-5.1) Chloride Level 107 MMOL/L (98-107) Carbon Dioxide Level 28 MMOL/L (21-32) Anion Gap 5 mmol/L (5-15) Blood Urea Nitrogen 12 mg/dL (7-18) Creatinine 0.8 MG/DL (0.55-1.30) Estimat Glomerular Filtration Rate > 60 mL/min (>60) Glucose Level 88 MG/DL (74-106) Calcium Level 8.7 MG/DL (8.5-10.1) Microbiology Date/Time Source Procedure Growth Status 04/29/20 17:49 Nasopharynx SARS-CoV-2 RdRp Gene Assay - Final Complete 04/29/20 16:02 Blood Blood Culture - Preliminary NO GROWTH AFTER 24 HOURS Resulted 04/29/20 15:47 Blood Blood Culture - Preliminary NO GROWTH AFTER 24 HOURS Resulted Assessment/Plan Assessment/Plan Hypovolemia Dehydration Lactic acidosis resolved Metabolic encephalopathy Chronic diastolic CHF Cerebrovascular disease with dementia Sinus tachycardia resolved with hydration 1st degree AV block of no clinical significance Hx degenerative aortic valve sclerosis with mild stenosis Hx asymptomatic bradycardia IVF Monitor lytes asp'n prec Nutritional support Дмитрий Taylor MD May 02, 2020 03:44
[2020-05-02 04:00] VITALS: BP 142/88
[2020-05-02] MEDS: NS w/KCl 20mEq 1000ml 1,000 ML IV SCH (05:44)
--- NOTE | 2020-05-02 07:12 | NUR ---
NURSE HAND-OFF REPORT: Important Events on Shift:None Patient Status: Stable Diet: Regular Crushed medications Pending Orders: Pending Results/Labs: Pending MD notification: Latest Vital Signs: Temperature 98.2 , Pulse 80 , B/P 142 /88 , Respiratory Rate 20 , O2 SAT 98 , Nasal Cannula, O2 Flow Rate 2.0 . Vital Sign Comment: EKG Rhythm: SR w/ 1st AVB Rhythm change?: N MD Notified?: - MD Response: Latest Watson Fall Score: 75 Fall Risk: High Risk Safety Measures: Call light Within Reach, Bed Alarm Zone 1, Side Rails Side Rails x3, Bed position Low and Locked. Fall Precautions: Yellow Socks Yellow Gown Door Sign Patient Fall Education Report given to Nikia MOORE.
--- NOTE | 2020-05-02 07:15 | NUR ---
NURSE NOTES: Received report from Conchis/RN. Observed patient asleep, lying semi-quinn's, resting comfortably. On 2L nasal canula, no acute distress/SOB noted, breathing evenly and unlabored. AAO x0, non-verbal. IV site patent and intact, NS W/20 mEq KCL running at 50cc/hr. Condom cath draining well to gravity. Bed in low position and locked, Call light within reach. Will continue plan of care.
[2020-05-02 08:00] VITALS: BP 161/115
[2020-05-02] MEDS ORDERED: Docusate 100mg/10ml Liq ORAL SCH (09:00)
[2020-05-02] MEDS: Heparin 5000 units/ml inj SUBQ SCH (09:03)
[2020-05-02] MEDS: Memantine 10mg tab ORAL SCH (09:03)
[2020-05-02] MEDS: Cyclobenzaprine 10mg Tab ORAL SCH (09:03)
[2020-05-02] MEDS: Aspirin Baby 81mg ORAL SCH (09:03)
[2020-05-02] MEDS: Docusate 100mg/10ml Liq ORAL SCH (09:03)
[2020-05-02 12:00] VITALS: BP 143/91
--- NOTE | 2020-05-02 12:30 | Pulmonology Progress Note ---
Subjective Interval Events: None new; on PO diet Constitutional: Reports: no symptoms HEENT: Repors: no symptoms Respiratory: Reports: no symptoms Cardiovascular: Reports: no symptoms Gastrointestinal/Abdominal: Reports: no symptoms Allergies: Coded Allergies: No Known Allergies (Unverified , 08/11/15) Objective Last 24 Hour Vital Signs Date Time Temp Pulse Resp B/P (MAP) Pulse Ox O2 Delivery O2 Flow Rate FiO2 05/02/20 12:00 97.7 88 20 143/91 (108) 100 05/02/20 09:00 Nasal Cannula 2.0 05/02/20 08:00 90 05/02/20 08:00 97.2 89 20 161/115 (130) 93 05/02/20 04:00 98.2 80 20 142/88 (106) 98 05/02/20 04:00 84 05/02/20 00:00 97.9 80 20 153/90 (111) 100 05/02/20 00:00 73 05/01/20 21:00 Nasal Cannula 2.0 05/01/20 20:00 97.9 87 20 147/90 (109) 97 05/01/20 20:00 88 05/01/20 16:00 99.0 101 20 141/83 (102) 99 05/01/20 16:00 95 Intake and Output 05/01/20 05/02/20 19:00 07:00 Intake Total 850 ml Output Total 425 ml 2300 ml Balance 425 ml -2300 ml Intake Oral 850 ml Output Urine Total 425 ml 2300 ml # Bowel Movements 1 1 General Appearance: no acute distress HEENT: normocephalic Respiratory: chest wall non-tender, lungs clear Cardiovascular: normal peripheral pulses, normal rate Abdomen: normal bowel sounds Extremities: no cyanosis Microbiology Date/Time Source Procedure Growth Status 04/29/20 17:49 Nasopharynx SARS-CoV-2 RdRp Gene Assay - Final Complete 04/29/20 16:02 Blood Blood Culture - Preliminary NO GROWTH AFTER 48 HOURS Resulted 04/29/20 15:47 Blood Blood Culture - Preliminary NO GROWTH AFTER 48 HOURS Resulted Current Medications Medications (Trade) Dose Ordered Sig/Hao Route PRN Reason Start Time Stop Time Status Last Admin Dose Admin Acetaminophen (Tylenol) 650 mg Q4H PRN ORAL Mild Pain (Pain Scale 1-3) 04/30/20 11:45 05/30/20 11:44 Aspirin (ASA) 81 mg DAILY ORAL 04/30/20 09:00 06/14/20 08:59 05/02/20 09:03 Atorvastatin Calcium (Lipitor) 20 mg BEDTIME ORAL 04/30/20 21:00 07/29/20 20:59 05/01/20 21:02 Ceftriaxone Sodium 1 gm/ Dextrose 55 ml @ 110 mls/hr Q24H IVPB 04/30/20 18:00 05/07/20 17:59 05/01/20 18:21 Cyclobenzaprine HCl (Flexeril) 10 mg BID ORAL 04/30/20 09:00 05/07/20 08:59 05/02/20 09:03 Dextrose (Dextrose 50%) 25 ml Q30M PRN IV Hypoglycemia 04/30/20 11:45 07/29/20 11:44 Dextrose (Dextrose 50%) 50 ml Q30M PRN IV Hypoglycemia 04/30/20 11:45 07/29/20 11:44 Docusate Sodium (Colace) 100 mg DAILYPRN PRN ORAL Constipation 04/30/20 11:45 05/30/20 11:44 Docusate Sodium (Colace) 100 mg TWICE A DAY ORAL 05/01/20 21:00 05/31/20 20:59 05/02/20 09:03 Heparin Sodium (Porcine) (Heparin 5000 units/ml) 5,000 units EVERY 12 HOURS SUBQ 04/30/20 21:00 06/14/20 20:59 05/02/20 09:03 Memantine (Namenda) 10 mg DAILY ORAL 04/30/20 09:00 05/30/20 08:59 05/02/20 09:03 Polyethylene Glycol (Miralax) 17 gm DAILYPRN PRN ORAL Constipation 04/30/20 11:45 05/30/20 11:44 Potassium Chloride/Sodium Chloride 1,000 ml @ 50 mls/hr Q20H IV 04/30/20 13:00 05/30/20 12:59 05/02/20 05:44 Assessment/Plan Assessment/Plan IMPRESSION: 1. Altered mental status. 2. Hypotension, now resolved. 3. Parkinson's. 4. Dementia. DISCUSSION: Toerating PO's Will dc IV fluids Dc abx; no positive cultures or source Will dc home Velma Dacosta,Nick Braga MD May 02, 2020 12:30
--- NOTE | 2020-05-02 14:46 | NUR ---
STAINING MACHINE OPERATOR NOTES SPOKE WITH PT'S SON KADE, PT IS CURRENTLY ON HOSPICE WITH [facility].KADE IS HOME TO RECEIVE THE PT. PER KADE HE WILL NOTIFY [facility] TODAY.
--- NOTE | 2020-05-02 17:18 | NUR ---
NURSE NOTES: Discharge instruction package given to ambulance personnel. desk monitor and IV removed, No distress or bleeding noted. Patient is in stable condition. Patient left with Ambulance personnel via gurney.
--- NOTE | 2020-05-03 01:57 | Cardiology Progress Note ---
Subjective DATE OF SERVICE: May 02, 2020 On IVF More alert BP parameters stabilized; no recurring hypotension Monitor: sinus with rare atrial ectopy Objective Last 24 Hour Vital Signs Date Time Temp Pulse Resp B/P (MAP) Pulse Ox O2 Delivery O2 Flow Rate FiO2 05/02/20 12:00 97.7 88 20 143/91 (108) 100 05/02/20 12:00 89 05/02/20 09:00 Nasal Cannula 2.0 05/02/20 08:00 90 05/02/20 08:00 97.2 89 20 161/115 (130) 93 05/02/20 04:00 98.2 80 20 142/88 (106) 98 05/02/20 04:00 84 HEENT: normal ENT inspection RHYTHM: NSR, other - sinus arrhythmia LUNGS: lungs clear bilaterally CARDIAC: normal rate, regular rhythm, normal S1 and S2, systolic murmur - 1/6 systolic ejection ABDOMEN: normal bowel sounds, non tender, soft EXTREMITIES: non-tender, No edema Assessment/Plan Assessment/Plan Hypovolemia corrected Dehydration corrected Lactic acidosis resolved Metabolic encephalopathy Chronic diastolic CHF Cerebrovascular disease with dementia Sinus tachycardia resolved with hydration 1st degree AV block of no clinical significance 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 Дмитрий Taylor MD May 03, 2020 01:57
--- NOTE | 2020-05-03 03:15 | Consultation ---
DATE OF CONSULTATION: 04/30/2020 CARDIOLOGY CONSULT CONSULTING PHYSICIAN: Дмитрий Taylor M.D. REQUESTING PHYSICIAN: Nick Sanders M.D. REASON FOR CONSULTATION: Hypotension. HISTORY OF PRESENT ILLNESS: This 80-year-old male has a history of advanced dementia due to Parkinson disease. He was noted to have a syncopal episode and altered mentation by family members. He had a transient loss of consciousness noted according to his son. The patient was brought into the emergency room where he was noted to be hypotensive and was nonverbal. Today, he is more alert and responsive with stabilizing blood pressure. I have been asked to assist with cardiovascular care. The patient has been hospitalized here on prior occasions for syncope. He was last seen by me in February 2020 for a similar presentation. The patient monitored and had no arrhythmias or bradycardia noted, however, on admission, there was noted hypovolemia and bradycardia that was transient. The patient responded to adequate hydration with no recurrence. PAST MEDICAL HISTORY: Includes Parkinson disease, dementia, dysphagia, degenerative valve disease with aortic sclerosis, and mild stenosis. FAMILY HISTORY: Noncontributory. SOCIAL HISTORY: Negative for smoking or alcohol use. REVIEW OF SYSTEMS: No fevers or chills. No COVID-19 exposures. No recent upper respiratory symptoms. No diarrhea or abdominal pain. He was occasionally incontinent. There is no history of asthma or abnormal blood clotting. He had an echocardiogram in February 2020 with normal ejection fraction, mild aortic valve stenosis, and no pulmonary hypertension. PHYSICAL EXAMINATION: VITAL SIGNS: Blood pressure in the emergency room 68/43, today 125/81, pulse 75, respiratory rate 18, afebrile. Oxygen saturation 96% to 98% on room air. HEENT: Temporal wasting. Dry mucous membranes. NECK: Supple. Jugular venous pressure normal. No bruits. LUNGS: Clear. CARDIAC: Regular rhythm and rate. Normal S1, S2 with a 1/6 systolic murmur at base. ABDOMEN: Soft, nontender. EXTREMITIES: No edema. NEUROLOGIC: Non-intention tremor. Moderate cognitive impairment. LABORATORY DATA: Labs done on admission, white count 11.4, hemoglobin 11.4. Sodium 140, potassium 4.1, bicarb 28. BUN 13, creatinine 1. Pro-natriuretic peptide 295 and albumin 3.1. Lactic acid was 2.3. Troponin negative. IMPRESSION: 1. Syncopal episode likely due to hypovolemia in the setting of mild aortic stenosis, less likely is a bradyarrhythmic episode. 2. Lactic acidosis. 3. Chronic diastolic congestive heart failure. 4. Degenerative valve disease. 5. Parkinson disease with advanced dementia. 6. Mild protein-calorie malnutrition. PLAN: 1. Cautious hydration. 2. Serial lactic acid levels. 3. DVT prophylaxis. 4. Nutritional support. 5. Avoid tight blood pressure control. 6. Check lipid parameters and reassess statin dosing. Дмитрий Taylor M.D. DRAmanda TOVAR JOB#: [id number] CC:
--- NOTE | 2020-05-04 08:18 | Discharge Summary ---
Discharge Summary Discharge Summary _ DATE OF ADMISSION: 04/29/2020 DATE OF DISCHARGE: 05/02/2020 DISCHARGED BY: Dr. Sanders REASON FOR ADMISSION: 80 years old male with PMH of Alzheimer dementia, hypertension , advanced Parkinson disease, brought to the hospital by his family via paramedics for syncopal episode and altered mental status. No head trauma. In emergency department patient was hypotensive. Laboratory work-up revealed mild leukocytosis WBC 11.4, hemoglobin 11.4. Stable chemistry. Lactic acid 2.3. D-dimer 21. Glucose 130. Chest x-ray revealed clear lung pena bilaterally. Troponin negative. EKG revealed sinus tachycardia with first-degree AV block, heart rate 106-107. Venous duplex of bilateral lower extremity revealed no evidence of acute DVT. Rapid COVID-[address] scan of the chest and thorax showed no evidence of pulmonary embolism. T Patient initially presented with hypotension 68/43 , which improved with IV hydration. Patient subsequently admitted to telemetry floor for further management. CONSULTANTS: haunted history tour guide [facility] COURSE: Patient admitted to telemetry floor. Patient was on IV hydration and empiric antibiotics. Home medication continued. Shuttlecock Assembler followed. Patient initially was hypotensive due to hypovolemia and dehydration , which was corrected with IV hydration. Volumes were closely monitored. Sinus tachycardia resolved with hydration. Altered mental c status was most likely due to metabolic encephalopathy. First degree of AV block was of no clinical significance. DVT prophylaxis provided. Antiplatelet therapy with aspirin along with statin continued. Supplemental oxygen provided as needed to keep pulse oximetry above 92%. Repeated lactic acid 1.0. Blood culture came back negative. Antibiotic discontinued. Aspiration precaution maintained. Nutritional support provided. Bowel regimen instituted. Patient was able to tolerate oral fluids . IV fluids were discontinued. Patient clinically stabilized and was ready for discharge. Patient was under hospice services prior to admission, and son wanted to resume the services . Patient was stable for discharge home. FINAL DIAGNOSES: Acute metabolic encephalopathy Hypotension- resolved Parkinson disease Cerebrovascular disease with dementia Lactic acidosis -resolved Chronic diastolic CHF DISCHARGE MEDICATIONS: See Medication Reconciliation list. DISCHARGE INSTRUCTIONS: Patient was discharged home with hospice services I have been assigned to dictate discharge summary for this account. I was not involved in the patient's management. Letitia Hernandez NP May 04, 2020 08:18
== END 2020-05-02 17:15 | disposition hospice, home (50) | DRG 640 ==
LOC: EDBD 15:58 → EMR 16:08 → 2E 20:30 → EDBEDREQ 21:14
DX: E86.1 Hypovolemia (principal); G93.41 Metabolic encephalopathy; I50.32 Chronic diastolic (congestive) heart failure; E44.1 Mild protein-calorie malnutrition; G30.9 Alzheimer's disease, unspecified; E86.0 Dehydration; E87.2 Acidosis; G20 Parkinson's disease; F02.80 Dementia in other diseases classified elsewhere, unspecified severity, without behavioral disturbance, psychotic disturbance, mood disturbance, and anxiety; I95.9 Hypotension, unspecified; F01.50 Vascular dementia, unspecified severity, without behavioral disturbance, psychotic disturbance, mood disturbance, and anxiety; I35.0 Nonrheumatic aortic (valve) stenosis; Z68.20 Body mass index [BMI] 20.0-20.9, adult
CPT/HCPCS: 36415; 71045; 71275; 80048; 80053; 81003; 82803; 83605; 83735; 83880; 84484; 85025; 85379; 85610; 85730; 86850; 86900; 86901; 87040; 93005; 93971; 96361; 96365; 96368; 96375; 99291; J7030; U0002